=== PATIENT | male | born 1970 | race Caucasian/White ===

== ENCOUNTER → 2018-04-04 15:29 | Outpatient (CLI) | payer OTHER, SELFPAY ==
[2018-04-04 18:00] LABS: Absolute Lymphocyte Count 1.63 X10^3/ul (0.83-4.51); Absolute Neutrophil Count 7.6 X10^3/uL (2.0-7.7); Basophil# 0.04 X10^3/uL; Basophil% 0.4 % (0-1); Eosinophil# 0.11 X10^3/uL; Eosinophils% 1.1 % (0-5); Hematocrit 51.2 % (40-54); Hemoglobin 16.7 g/dl (13.0-16.5); Lymphocyte # 1.63 X10^3/ul (4.0); Mean Corp Hgb Conc 32.6 g/gl (32-36); Mean Corpuscular Hgb 28.9 pg (27.0-32.0); Mean Corpuscular Volume 88.6 fL (80-94); Mean Platelet Vol. 10.4 fl (6.2-12.0); Monocyte# 0.79 X10^3/uL; Monocyte% 7.8 % (0-10); Neutrophil # 7.56 X10^3/uL (2.7-7.7); Neutrophil % 74.4 % (47-70); Platelet Count 287 K/mm3 (150-450); RBC Distribution Width CV 12.8 % (11.6-14.6); RBC Distribution Width SD 41.2 fl (35.1-43.9); Red Blood Count 5.78 M/mm3 (4.6-6.2); White Blood Count 10.2 K/mm3 (4.4-11.0)
[2018-04-04 18:01] LABS: Vitamin B12 523 pg/mL (211-911); Vitamin D,25 Hydroxy 13.5 ng/mL (29.95-100.01)
[2018-04-04 18:02] LABS: AST(SGOT) 20 U/L (15-37); Alanine Aminotransfer ALT/SGPT 34 U/L (16-61); Albumin, Serum 4.1 g/dL (3.2-5.0); Alkaline Phosphatase 94 U/L (45-117); Anion Gap 7 (5-15); BUN 20 mg/dL (7-18); BUN/Creat Ratio 17.9 RATIO (10-20); Calcium,Total 9.1 mg/dL (8.5-10.1); Chloride 103 mmol/L (98-107); Cholesterol 175 mg/dL (200); Creatinine, Serum 1.12 mg/dL (0.70-1.30); EST Glomerular Filtration Rate 75 mL/min (>60); Est Glom Filt Rate - Afr Amer 91 mL/min (>60); Globulin 4.2 g/dL (2.2-4.2); Glucose 92 mg/dL (74-106); High Density Lipoprotein 42 mg/dL; Potassium 3.9 mmol/L (3.5-5.1); Protein, Total 8.3 g/dL (6.4-8.2); Sodium Level 138 mmol/L (136-145); T4 Free Direct 1.08 ng/dL (0.76-1.46); Triglycerides 128 mg/dL; Very Low Density Lipoprotein 26 mg/dL (5-40)
[2018-04-04 18:12] LABS: POSITIVE COUNT NO; POSITIVE DIFFERENTIAL NO; POSITIVE MORPHOLOGY NO
[2018-04-16 11:58] LABS: Anti-Thyroglobulin AB 12.2 IU/mL (0.0-0.9); Thyroglobulin RIA 3.7 ng/mL (.); Thyroid Peroxidase AB 175 IU/mL (0-34)
== END ==
PROVIDERS: Family Provider Family Medicine; PCP Family Medicine; Visit Provider Family Medicine
DX: I10 Essential (primary) hypertension (principal); E78.5 Hyperlipidemia, unspecified; E03.9 Hypothyroidism, unspecified; R53.83 Other fatigue
CPT/HCPCS: 80053; 80061; 82306; 82607; 84432; 84439; 84443; 85025; 86376; 86800

== ENCOUNTER → 2018-07-24 16:58 | Outpatient (CLI) | payer OTHER, SELFPAY ==
[2016-12-01 14:19] VITALS: BMI 49.0
[2018-07-24 17:46] LABS: Absolute Lymphocyte Count 2.01 X10^3/ul (0.83-4.51); Absolute Neutrophil Count 5.8 X10^3/uL (2.0-7.7); Basophil# 0.02 X10^3/uL; Basophil% 0.2 % (0-1); Eosinophil# 0.11 X10^3/uL; Eosinophils% 1.3 % (0-5); Hematocrit 46.4 % (40-54); Hemoglobin 15.1 g/dl (13.0-16.5); Lymphocyte # 2.01 X10^3/ul (4.0); Lymphocyte % 22.9 % (19-41); Mean Corp Hgb Conc 32.5 g/gl (32-36); Mean Corpuscular Volume 89.1 fL (80-94); Monocyte# 0.77 X10^3/uL; Monocyte% 8.8 % (0-10); Neutrophil # 5.84 X10^3/uL (2.7-7.7); Neutrophil % 66.6 % (47-70); Platelet Count 284 K/mm3 (150-450); RBC Distribution Width SD 41.9 fl (35.1-43.9); Red Blood Count 5.21 M/mm3 (4.6-6.2); White Blood Count 8.8 K/mm3 (4.4-11.0)
[2018-07-24 18:01] LABS: POSITIVE COUNT NO; POSITIVE DIFFERENTIAL NO; POSITIVE MORPHOLOGY NO
[2018-07-24 18:25] LABS: Vitamin D,25 Hydroxy 45.5 ng/mL (29.95-100.01)
[2018-07-24 18:27] LABS: AST(SGOT) 19 U/L (15-37); Alanine Aminotransfer ALT/SGPT 33 U/L (16-61); Albumin, Serum 4.1 g/dL (3.2-5.0); Alkaline Phosphatase 84 U/L (45-117); Anion Gap 8 (5-15); BUN 23 mg/dL (7-18); BUN/Creat Ratio 19.2 RATIO (10-20); Calcium,Total 9.6 mg/dL (8.5-10.1); Chloride 104 mmol/L (98-107); Cholesterol 165 mg/dL (200); EST Glomerular Filtration Rate 69 mL/min (>60); Est Glom Filt Rate - Afr Amer 84 mL/min (>60); Glucose 102 mg/dL (74-106); High Density Lipoprotein 48 mg/dL; Protein, Total 8.1 g/dL (6.4-8.2); Sodium Level 140 mmol/L (136-145); Thyroid Stim Hormone (TSH) 4.75 uIU/mL (0.358-3.74); Triglycerides 90 mg/dL; Very Low Density Lipoprotein 18 mg/dL (5-40)
== END ==
PROVIDERS: Family Provider Family Medicine; PCP Family Medicine; Referring Provider Family Medicine; Visit Provider Family Medicine
DX: I10 Essential (primary) hypertension (principal); E78.5 Hyperlipidemia, unspecified; E03.9 Hypothyroidism, unspecified; R53.83 Other fatigue
CPT/HCPCS: 36415; 80053; 80061; 82306; 84443; 85025

== ENCOUNTER → 2018-09-24 15:56 | Outpatient (CLI) | payer OTHER, SELFPAY ==
[2018-09-24 18:06] LABS: Thyroid Stim Hormone (TSH) 6.38 uIU/mL (0.358-3.74)
== END ==
PROVIDERS: Family Provider Family Medicine; PCP Family Medicine; Visit Provider Family Medicine
DX: E03.9 Hypothyroidism, unspecified (principal)
CPT/HCPCS: 36415; 84443

== ENCOUNTER → 2018-10-23 16:01 | Outpatient (CLI) | payer OTHER, SELFPAY ==
[2016-12-01 14:19] VITALS: BMI 49.0
--- NOTE | 2018-10-23 16:11 | RAD_ITS ---
HISTORY: PAIN EXAM: Right Knee COMPARISON: None FINDINGS: # of images incl. paperwork: 4 The joint spaces are well-maintained. No fracture or subluxation. The patellofemoral joint is minimally narrowed with small osteophyte, and lateral tilting to the patella.. A tiny right knee effusion is seen. RAD/Knee 4 or More Views IMPRESSION: Mild patellofemoral osteoarthritis with small effusion to the right knee. at 0538 Reported and signed by: Obed Real MD Electronically Signed: Obed Real MD at 5:37 EDT Tel , Service support ,
--- NOTE | 2018-10-23 16:11 | RAD_ITS ---
HISTORY: PAIN EXAM: Left Knee COMPARISON: None FINDINGS: # of images incl. paperwork: 4 The joint spaces are well-maintained. No fracture or subluxation. The patellofemoral joint has a normal appearance. Tiny left knee effusion is seen. RAD/Knee 4 or More Views IMPRESSION: Tiny effusion to the left knee. at [id number] Reported and signed by: Obed Real MD Electronically Signed: Obed Real MD at 5:38 EDT Tel , Service support ,
== END ==
PROVIDERS: Family Provider Family Medicine; PCP Family Medicine; Referring Provider Family Medicine; Visit Provider Family Medicine
DX: M25.561 Pain in right knee (principal); M25.562 Pain in left knee
CPT/HCPCS: 73564

== ENCOUNTER → 2018-12-23 15:55 | Outpatient (CLI) | payer OTHER, SELFPAY ==
[2016-12-01 14:19] VITALS: BMI 49.0
== END ==
PROVIDERS: Family Provider Family Medicine; PCP Family Medicine; Visit Provider Family Medicine
DX: E03.9 Hypothyroidism, unspecified (principal)
CPT/HCPCS: 36415; 84443

== ENCOUNTER → 2019-03-20 16:00 | Outpatient (CLI) | payer OTHER, SELFPAY ==
[2016-12-01 14:19] VITALS: BMI 49.0
[2019-03-20 17:31] LABS: Thyroid Stim Hormone (TSH) 3.63 uIU/mL (0.358-3.74)
== END ==
PROVIDERS: Family Provider Family Medicine; PCP Family Medicine; Visit Provider Family Medicine
DX: E03.9 Hypothyroidism, unspecified (principal)
CPT/HCPCS: 36415; 84443

== ENCOUNTER → 2019-04-23 11:09 | Outpatient (CLI) | payer OTHER, SELFPAY ==
[2016-12-01 14:19] VITALS: BMI 49.0
--- NOTE | 2019-04-23 11:22 | EKG12_ITS ---
Test Reason : PRE OP Blood Pressure : / mmHG Vent. Rate : 069 BPM Atrial Rate : 069 BPM P-R Int : 150 ms QRS Dur : 086 ms QT Int : 380 ms P-R-T Axes : 048 018 054 degrees QTc Int : 407 ms Normal sinus rhythm Normal ECG Confirmed by CLARK RAMOS, MANOJ ([id number]), business editor DANGELO ALONZO ([id number]) on 04/29/2019 11:37:09 AM Referred By: Phil Rock Confirmed By:SULMA RODAS MD
[2019-04-23 12:35] LABS: Hematocrit 50.1 % (40-54); Hemoglobin 16.3 g/dL (13.0-16.5); Mean Corp Hgb Conc 32.5 g/dL (32-36); Mean Corpuscular Hgb 28.8 pg (27.0-32.0); Mean Corpuscular Volume 88.7 fL (80-94); Platelet Count 302 K/mm3 (150-450); RBC Distribution Width CV 12.4 % (11.6-14.6); RBC Distribution Width SD 40.5 fl (35.1-43.9); Red Blood Count 5.65 M/mm3 (4.6-6.2)
[2019-04-23 13:23] LABS: Anion Gap 6 (5-15); BUN 23 mg/dL (7-18); BUN/Creat Ratio 18.9 RATIO (10-20); Calcium,Total 9.2 mg/dL (8.5-10.1); Chloride 105 mmol/L (98-107); Creatinine, Serum 1.22 mg/dL (0.70-1.30); EST Glomerular Filtration Rate 68 mL/min (>60); Est Glom Filt Rate - Afr Amer 82 mL/min (>60); Glucose 144 mg/dL (74-106); Potassium 4.1 mmol/L (3.5-5.1); Sodium Level 138 mmol/L (136-145)
== END ==
PROVIDERS: Family Provider Family Medicine; PCP Family Medicine; Referring Provider Physician Assistant; Visit Provider Physician Assistant
DX: Z01.818 Encounter for other preprocedural examination (principal); Z01.810 Encounter for preprocedural cardiovascular examination
CPT/HCPCS: 36415; 80048; 85027; 93005

== ENCOUNTER 2019-05-04 07:05 | Day surgery (SDC) | payer OTHER, SELFPAY ==
[2019-05-04 07:28] VITALS: PULSE 81; RESP 16; TEMP 36.3; O2SAT 98; BMI 52.4
[2019-05-04] MEDS: Lactated Ringers 1,000 ML 100 ML IV (07:42)
[2019-05-04] MEDS: Epinephrine (1 mg/ml) 1 MG/ML VIAL (09:56)
[2019-05-04] MEDS: Bupiv/Epi 0.25% 30 ML Vial (09:58)
[2019-05-04 10:18] VITALS: BP 112/53; BP 150/80; PULSE 100; RESP 18; TEMP 36.4; O2SAT 92
[2019-05-04 10:30] VITALS: BP 127/82; BP 150/80; PULSE 77; RESP 16; O2SAT 93
[2019-05-04 10:45] VITALS: BP 110/76; BP 150/80; PULSE 70; RESP 16; O2SAT 98
[2019-05-04 10:53] VITALS: BP 120/72; BP 150/80; PULSE 69; RESP 16; TEMP 36.6; O2SAT 93
[2019-05-04] MEDS: HYDROcodone Bitartrate/Apap 5/325 Tablet PO (11:17)
[2019-05-04 12:01] VITALS: BP 133/68; BP 150/80; PULSE 71; RESP 16; TEMP 36.8; O2SAT 93
--- NOTE | 2019-05-04 12:57 | PCM.OPRPT ---
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
== END 2019-05-04 12:07 | disposition home or self-care (01) ==
LOC: SDC 07:08 → AC 07:08
PROVIDERS: Family Provider Family Medicine; PCP Family Medicine; Referring Provider Orthopaedic Surgery; Visit Provider Orthopaedic Surgery
PROC: (CPT 29870; principal; 2019-05-04 08:25)
DX: S83.241A Other tear of medial meniscus, current injury, right knee, initial encounter (principal); X58.XXXA Exposure to other specified factors, initial encounter; Y93.9 Activity, unspecified; Y92.9 Unspecified place or not applicable; Y99.0 Civilian activity done for income or pay; M22.41 Chondromalacia patellae, right knee; E78.00 Pure hypercholesterolemia, unspecified; E06.9 Thyroiditis, unspecified; I10 Essential (primary) hypertension; M19.90 Unspecified osteoarthritis, unspecified site; Z79.899 Other long term (current) drug therapy
CPT/HCPCS: 29881; J7120; J2405

== ENCOUNTER → 2019-09-19 08:45 | Outpatient (CLI) | payer OTHER, SELFPAY ==
[2019-09-19 09:00] LABS: Absolute Lymphocyte Count 2.09 X10^3/uL (0.83-4.51); Absolute Neutrophil Count 5.4 X10^3/uL (2.0-7.7); Basophil# 0.05 X10^3/uL; Basophil% 0.6 % (0-1); Eosinophil# 0.24 X10^3/uL; Eosinophils% 2.8 % (0-5); Hematocrit 47.6 % (40-54); Hemoglobin 15.3 g/dL (13.0-16.5); Lymphocyte # 2.09 X10^3/ul (4.0); Lymphocyte % 24.3 % (19-41); Mean Corp Hgb Conc 32.1 g/dL (32-36); Mean Corpuscular Hgb 28.4 pg (27.0-32.0); Mean Corpuscular Volume 88.3 fL (80-94); Mean Platelet Vol. 9.5 fl (6.2-12.0); Monocyte# 0.78 X10^3/uL; Monocyte% 9.1 % (0-10); NRBC Flagged by Analyzer 0 % (0-5); Neutrophil # 5.39 X10^3/uL (2.7-7.7); Neutrophil % 62.7 % (47-70); Platelet Count 287 K/mm3 (150-450); RBC Distribution Width CV 12.3 % (11.6-14.6); RBC Distribution Width SD 40.2 fl (35.1-43.9); Red Blood Count 5.39 M/mm3 (4.6-6.2); White Blood Count 8.6 K/mm3 (4.4-11.0)
[2019-09-19 09:30] LABS: Hemoglobin A1c 7.4 % (4.2-6.3)
[2019-09-19 09:31] LABS: AST(SGOT) 29 U/L (15-37); Alanine Aminotransfer ALT/SGPT 36 U/L (16-61); Albumin, Serum 3.7 g/dL (3.2-5.0); Alkaline Phosphatase 77 U/L (45-117); Anion Gap 6 (5-15); BUN 13 mg/dL (7-18); Chloride 107 mmol/L (98-107); Cholesterol 171 mg/dL (200); Creatinine, Serum 1.08 mg/dL (0.70-1.30); EST Glomerular Filtration Rate 78 mL/min (>60); Est Glom Filt Rate - Afr Amer 94 mL/min (>60); Globulin 3.6 g/dL (2.2-4.2); Glucose 149 mg/dL (74-106); High Density Lipoprotein 39 mg/dL; Protein, Total 7.3 g/dL (6.4-8.2); Sodium Level 141 mmol/L (136-145); Thyroid Stim Hormone (TSH) 3.63 uIU/mL (0.358-3.74); Triglycerides 144 mg/dL; Very Low Density Lipoprotein 29 mg/dL (5-40)
--- OUTSIDE RECORDS SUMMARY | 2020-02-23 07:58 | XMS RPT_ITS | CCD ---
:1970 External Reference #:[id number] Author Organization [facility] Care Team Providers Name Role Phone Neveah Medel MD Unavailable GEMS Unavailable Unavailable NO REFERRING DR Unavailable Unavailable ZOUMBERAKIS Unavailable Unavailable Kolarik Unavailable Unavailable PROVIDER Unavailable Unavailable No Unavailable Unavailable Medications Medication Name Sig Date Prescriber Location No information No information [facility] (123 42) Problems Active Problems Category Problem Name Status Date Location Disorders of lipid Hyperlipidemia, Active 12-05-2016 - [facility] metabolism unspecified (75112) Diverticulosis and Diverticulitis of large Active 12-05-2016 [facility] diverticulitis intestine without (34955) perforation or abscess without bleeding Esophageal disorders Gastro-esophageal Active 12-05-2016 - [facility] reflux disease without (0000 0) esophagitis Essential hypertension Essential (primary) Active 12-04-2016 - [place] [facility] (97383) Other nutritional; Morbid (severe) obesity Active 12-05-2016 - [facility] endocrine; and due to excess calories (00 000) metabolic disorders Thyroid disorders Hypothyroidism, Active 12-04-2016 - [place] [facility] unspecified [facility] (61916) Unclassified Body mass index (BMI) Active 12-05-2016 - [facility] 50-59.9 , adult (80950) Unclassified Pure Active 12-04-2016 - [place] [facility] hypercholesterolemia, Health System unspecified (26151) Unclassified No current problems or Active [facility] S urgical disability Associates (440 86) Past or Other Problems Category Problem Name Status Date Location Abdominal pain Generalized abdominal Completed 12-04-2016 - [place] [facility] (05716) Fluid and electrolyte Hypokalemia Completed 12-05-2016 - [facility] disorders System (71562) Intestinal obstruction Other intestinal Completed 12-04-2016 - [facility] without hernia obstruction [facility] (64081) Other aftercare Other senior care Completed 12-04-2016 - [place] [facility] (current) drug therapy [facility] (98634) Results Result Name Value Range Unit Interpretation Flag Date Location history & physical on 2016-12-12 HISTORY & PHYSICAL The required clinical Normal 12-12-2016 [facility] documentation could not Health System be extracted for this (83196) report. Please refer to the [facility] Record or contact the [facility] Department at [facility] ([phone]) to obtain a copy of this report. HISTORY & PHYSICAL Normal 12-12-2016 [facility] tem (35610) phosphorus on 12-11 Phosphate 4.1 2.5-4.9 mg/dL Normal 12-11-2016 [facility] (12382) Comment: Performed By: #### HEMDF, CM P3, LACT3 ####[address] [address] hemogram w/ autodiff on 2016-12-11 Abs Baso Cnt 0.0 0.0-0.2 10*3/uL Normal 12-11-2016 [facility] (43247) Comment: Performed By: #### HEMDF, CM P3, LACT3 ####[address] [address] Basophils/100 WBC Auto (Bld) 0.2 % Normal 0 12-11-2016 [facility] (41397) Comment: Performed By: #### HEMDF, CM P3, LACT3 ####[address] [address] Eosinophils 0.1 0.0-0.5 10*3/uL Normal 12-11-2016 [facility] (12706) Comment: Performed By: #### HEMDF, CM P3, LACT3 ####[address] [address] Eosinophils/100 leukocytes 1.1 % Normal [facility] (76025) Comment: Performed By: #### HEMDF, CM P3, LACT3 ####[address] [address] Erythrocyte distribution 13.5 11.5-14.5 % Normal 12-11 [facility] width Auto Ratio (RBC) (50034) Comment: Performed By: #### HEMDF, CM P3, LACT3 ####[address] [place] [address] Erythrocytes (RBC) 4.95 4.40-5.90 10*6/uL Normal 12-11-2016 [facility] (41630) Comment: Performed By: #### HEMDF, CM P3, LACT3 ####[address] [place] [address] Granulocytes/100 WBC (Bld) 73.0 % Normal [facility] (04931) Comment: Performed By: #### HEMDF, CM P3, LACT3 ####[address] [place] [address] Hematocrit (HCT) 42.3 40.0-52.0 % Normal 12-11-2016 [facility] (13652) Comment: Performed By: #### HEMDF, CM P3, LACT3 ####[address] [place] [address] Hemoglobin mass conc 14.1 13.0-18.0 g/dL Normal 7 [facility] (Bld) (20665) Comment: Performed By: #### HEMDF, CM P3, LACT3 ####[address] [place] [address] Lymphocytes 1.5 1.0-4.3 10*3/uL Normal 12-11-2016 [facility] (01210) Comment: Performed By: #### HEMDF, CM P3, LACT3 ####[address] [place] [address] Lymphocytes/100 leukocytes 15.3 % Normal [facility] (46831) Comment: Performed By: #### HEMDF, CM P3, LACT3 ####[address] [place] [address] MCH 28.5 26.0-34.0 pg Normal 12-11-2016 [facility] (34454) Comment: Performed By: #### HEMDF, CM P3, LACT3 ####[address] [address] MCHC mass conc (RBC) 33.3 32.0-36.0 % Normal 201 7 [facility] (20854) Comment: Performed By: #### HEMDF, CM P3, LACT3 ####[address] [place] [address] MCV 85.5 80.0-98.0 fL Normal 12-11-2016 [facility] (18502) Comment: Performed By: #### HEMDF, CM P3, LACT3 ####[place] [address] Monocytes 1.0 0.0-0.8 10*3/uL High 12-11-2016 [facility] (21523) Comment: Performed By: #### HEMDF, CM P3, LACT3 ####[place] [address] Monocytes/100 leukocytes 10.4 % Normal 12-11 [facility] (23731) Comment: Performed By: #### HEMDF, CM P3, LACT3 ####[place] [address] Neutrophils 7.0 1.8-7.0 10*3/uL Normal 12-11-2016 [facility] (11792) Comment: Performed By: #### HEMDF, CM P3, LACT3 ####[address] [place] [address] Platelet mean volume (PMV) 7.1 7.4-10.4 fL Low [facility] (15870) Comment: Performed By: #### HEMDF, CM P3, LACT3 ####[place] [address] Platelets 300 140-440 10*3/uL Normal 12-11-2016 [facility] (25997) Comment: Performed By: #### HEMDF, CM P3, LACT3 ####[address] [place] [address] WBC (Leukocytes) 9.6 3.6-10.7 10*3/uL Normal 12-11-2016 [facility] (96473) Comment: Performed By: #### HEMDF, CM P3, LACT3 ####[address] [place] [address] basic metabolic panel on 2016-12-11 Anion gap 11 mmol/L Normal 12-11-2016 [facility] (00813) Comment: Performed By: #### HEMDF, CM P3, LACT3 ####[address] [place] [address] Creatinine 0.93 0.55-1.40 mg/dL Normal 12-11-2016 [facility] (59004) Comment: Performed By: #### HEMDF, CM P3, LACT3 ####[address] [place] [address] eGFR (black) >60.0 >60 mL/min/{1.73_m2} Normal 12-11-2016 [facility] (41048) Comment: Performed By: #### HEMDF, CM P3, LACT3 ####[address] [place] [address] eGFR (non-black) >60.0 >60 mL/min/{1.73_m2} Normal 2016 [facility] (15316) Comment: Result Comment: Source- MDRD equation with creatinine calibration to IDMS(NKDEP)eGFR not recommen ded for drug dose adjustment Performed By: #### HEMDF, CM P3, LACT3 ####[address] [place] [address] Glucose mass conc 110 70-100 mg/dL High 12-11-2016 [facility] (58553) Comment: Performed By: #### HEMDF, CM P3, LACT3 ####[address] [place] [address] Urea nitrogen 5 7-25 mg/dL Low 12-11-2016 [facility] (73160) Comment: Performed By: #### HEMDF, CM P3, LACT3 ####[address] [place] [address] Calcium 8.9 8.2-10.1 mg/dL Normal 12-11-2016 [facility] (42105) Comment: Performed By: #### HEMDF, CM P3, LACT3 ####[address] [place] [address] Chloride 102 98-109 mmol/L Normal 12-11-2016 [facility] (47563) Comment: Performed By: #### HEMDF, CM P3, LACT3 ####[address] [place] [address] CO2 26 21-32 mmol/L Normal 12-11-2016 [facility] (22900) Comment: Performed By: #### HEMDF, CM P3, LACT3 ####[address] [place] [address] Potassium molar conc 3.8 3.5-5.1 mmol/L Normal 7 [facility] (50229) Comment: Performed By: #### HEMDF, CM P3, LACT3 ####[address] [place] [address] Sodium 139 135-145 mmol/L Normal 12-11-2016 [facility] (88252) Comment: Performed By: #### HEMDF, CM P3, LACT3 ####[address] [place] [address] phosphorus on 12-10 Phosphate 3.6 2.5-4.9 mg/dL Normal 12-10-2016 [facility] (48222) Comment: Performed By: #### HEMDF, CM P3, LACT3 ####[address] [place] [address] hemogram w/ autodiff on 2016-12-10 Abs Baso Cnt 0.0 0.0-0.2 10*3/uL Normal 12-10-2016 [facility] (43425) Comment: Performed By: #### HEMDF, CM P3, LACT3 ####[address] [place] [address] Basophils/100 WBC Auto (Bld) 0.2 % Normal 0 12-10-2016 [facility] (34512) Comment: Performed By: #### HEMDF, CM P3, LACT3 ####[address] [place] [address] Eosinophils 0.1 0.0-0.5 10*3/uL Normal 12-10-2016 [facility] (17362) Comment: Performed By: #### HEMDF, CM P3, LACT3 ####[address] [place] [address] Eosinophils/100 leukocytes 0.7 % Normal [facility] (96069) Comment: Performed By: #### HEMDF, CM P3, LACT3 ####[address] [place] [address] Erythrocyte distribution 13.7 11.5-14.5 % Normal 12-10 [facility] width Auto Ratio (RBC) (42010) Comment: Performed By: #### HEMDF, CM P3, LACT3 ####[address] [place] [address] Erythrocytes (RBC) 4.57 4.40-5.90 10*6/uL Normal 12-10-2016 [facility] (22671) Comment: Performed By: #### HEMDF, CM P3, LACT3 ####[address] [place] [address] Granulocytes/100 WBC (Bld) 69.7 % Normal [facility] (48331) Comment: Performed By: #### HEMDF, CM P3, LACT3 ####[address] [place] [address] Hematocrit (HCT) 38.4 40.0-52.0 % Low 12-10-2016 [facility] (53743) Comment: Performed By: #### HEMDF, CM P3, LACT3 ####[address] [place] [address] Hemoglobin mass conc (Bld) 12.9 13.0-18.0 g/dL Low [facility] (76389) Comment: Performed By: #### HEMDF, CM P3, LACT3 ####[address] [place] [address] Lymphocytes 1.5 1.0-4.3 10*3/uL Normal 12-10-2016 [facility] (42558) Comment: Performed By: #### HEMDF, CM P3, LACT3 ####[address] [place] [address] Lymphocytes/100 leukocytes 15.5 % Normal [facility] (12121) Comment: Performed By: #### HEMDF, CM P3, LACT3 ####[address] [place] [address] MCH 28.2 26.0-34.0 pg Normal 12-10-2016 [facility] (41368) Comment: Performed By: #### HEMDF, CM P3, LACT3 ####[address] [place] [address] MCHC mass conc (RBC) 33.6 32.0-36.0 % Normal 7 [facility] (48202) Comment: Performed By: #### HEMDF, CM P3, LACT3 ####[address] [address] MCV 84.1 80.0-98.0 fL Normal 12-10-2016 [facility] (67706) Comment: Performed By: #### HEMDF, CM P3, LACT3 ####[address] [place] [address] Monocytes 1.3 0.0-0.8 10*3/uL High 12-10-2016 [facility] (07879) Comment: Performed By: #### HEMDF, CM P3, LACT3 ####[address] [place] [address] Monocytes/100 leukocytes 13.9 % Normal 12-10 [facility] (12636) Comment: Performed By: #### HEMDF, CM P3, LACT3 ####[address] [place] [address] Neutrophils 6.6 1.8-7.0 10*3/uL Normal 12-10-2016 [facility] (22726) Comment: Performed By: #### HEMDF, CM P3, LACT3 ####[address] [place] [address] Platelet mean volume (PMV) 7.4 7.4-10.4 fL Normal [facility] (43929) Comment: Performed By: #### HEMDF, CM P3, LACT3 ####[address] [place] [address] Platelets 274 140-440 10*3/uL Normal 12-10-2016 [facility] (69198) Comment: Performed By: #### HEMDF, CM P3, LACT3 ####[address] [place] [address] WBC (Leukocytes) 9.5 3.6-10.7 10*3/uL Normal 12-10-2016 [facility] (38368) Comment: Performed By: #### HEMDF, CM P3, LACT3 ####[address] [place] [address] basic metabolic panel on 2016-12-10 Creatinine 0.95 0.55-1.40 mg/dL Normal 12-10-2016 [facility] (83859) Comment: Performed By: #### HEMDF, CM P3, LACT3 ####[address] [place] [address] eGFR (black) >60.0 >60 mL/min/{1.73_m2} Normal 12-10-2016 [facility] (83414) Comment: Performed By: #### HEMDF, CM P3, LACT3 ####[address] [place] [address] eGFR (non-black) >60.0 >60 mL/min/{1.73_m2} Normal 2016 [facility] (90060) Comment: Result Comment: Source- MDRD equation with creatinine calibration to IDMS(NKDEP)eGFR not recommen ded for drug dose adjustment Performed By: #### HEMDF, CM P3, LACT3 ####[address] [place] [address] Anion gap 9 mmol/L Normal 12-10-2016 [facility] (10327) Comment: Performed By: #### HEMDF, CM P3, LACT3 ####[address] [place] [address] Urea nitrogen 4 7-25 mg/dL Low 12-10-2016 [facility] (28014) Comment: Performed By: #### HEMDF, CM P3, LACT3 ####[address] [place] [address] Calcium 8.0 8.2-10.1 mg/dL Low 12-10-2016 [facility] (80809) Comment: Performed By: #### HEMDF, CM P3, LACT3 ####[address] [place] [address] Glucose mass conc 94 70-100 mg/dL Normal 12-10-2016 [facility] (84351) Comment: Performed By: #### HEMDF, CM P3, LACT3 ####[address] [place] [address] CO2 25 21-32 mmol/L Normal 12-10-2016 [facility] (23880) Comment: Performed By: #### HEMDF, CM P3, LACT3 ####[address] [place] [address] Chloride 106 98-109 mmol/L Normal 12-10-2016 [facility] (50290) Comment: Performed By: #### HEMDF, CM P3, LACT3 ####[address] [place] [address] Potassium molar conc 3.6 3.5-5.1 mmol/L Normal 7 [facility] (40371) Comment: Performed By: #### HEMDF, CM P3, LACT3 ####[address] [place] [address] Sodium 140 135-145 mmol/L Normal 12-10-2016 [facility] (50451) Comment: Performed By: #### HEMDF, CM P3, LACT3 ####[address] [place] [address] phosphorus on 12-09 Phosphate 2.6 2.5-4.9 mg/dL Normal 12-09-2016 [facility] (24092) Comment: Performed By: #### HEMDF, CM P3, LACT3 ####[address] [place] [address] lab report: giardia lamblia, stool eia on 2016-12-09 GE use only - for NEGATIVE Invalid 12-09-2016 - [facility] Surgical [employer] import [employer] when terms are (4469 1) not otherwise specified hemogram w/ autodiff on 2016-12-09 Abs Baso Cnt 0.0 0.0-0.2 10*3/uL Normal 12-09-2016 [facility] (53776) Comment: Performed By: #### HEMDF, CM P3, LACT3 ####[address] [place] [address] Basophils/100 WBC Auto (Bld) 0.4 % Normal 0 12-09-2016 [facility] (43989) Comment: Performed By: #### HEMDF, CM P3, LACT3 ####[address] [place] [address] Eosinophils 0.0 0.0-0.5 10*3/uL Normal 12-09-2016 [facility] (54740) Comment: Performed By: #### HEMDF, CM P3, LACT3 ####[address] [place] [address] Eosinophils/100 leukocytes 0.4 % Normal [facility] (69470) Comment: Performed By: #### HEMDF, CM P3, LACT3 ####[address] [place] [address] Erythrocyte distribution 13.5 11.5-14.5 % Normal 12-09 [facility] width Auto Ratio (RBC) (23864) Comment: Performed By: #### HEMDF, CM P3, LACT3 ####[address] [place] [address] Erythrocytes (RBC) 4.64 4.40-5.90 10*6/uL Normal 12-09-2016 [facility] (22481) Comment: Performed By: #### HEMDF, CM P3, LACT3 ####[address] [place] [address] Granulocytes/100 WBC (Bld) 74.6 % Normal [facility] (96659) Comment: Performed By: #### HEMDF, CM P3, LACT3 ####[address] [place] [address] Hematocrit (HCT) 39.4 40.0-52.0 % Low 12-09-2016 [facility] (55879) Comment: Performed By: #### HEMDF, CM P3, LACT3 ####[address] [place] [address] Hemoglobin mass conc 13.1 13.0-18.0 g/dL Normal 7 [facility] (Bld) (45645) Comment: Performed By: #### HEMDF, CM P3, LACT3 ####[address] [place] [address] Lymphocytes 1.2 1.0-4.3 10*3/uL Normal 12-09-2016 [facility] (75349) Comment: Performed By: #### HEMDF, CM P3, LACT3 ####[address] [place] [address] Lymphocytes/100 leukocytes 12.1 % Normal [facility] (99303) Comment: Performed By: #### HEMDF, CM P3, LACT3 ####[address] [place] [address] MCH 28.3 26.0-34.0 pg Normal 12-09-2016 [facility] (05173) Comment: Performed By: #### HEMDF, CM P3, LACT3 ####[address] [place] [address] MCHC mass conc (RBC) 33.4 32.0-36.0 % Normal 7 [facility] (31547) Comment: Performed By: #### HEMDF, CM P3, LACT3 ####[address] [place] [address] MCV 84.9 80.0-98.0 fL Normal 12-09-2016 [facility] (36400) Comment: Performed By: #### HEMDF, CM P3, LACT3 ####[address] [place] [address] Monocytes 1.2 0.0-0.8 10*3/uL High 12-09-2016 [facility] (25195) Comment: Performed By: #### HEMDF, CM P3, LACT3 ####[address] [place] [address] Monocytes/100 leukocytes 12.5 % Normal 12-09 [facility] (51145) Comment: Performed By: #### HEMDF, CM P3, LACT3 ####[address] [place] [address] Neutrophils 7.3 1.8-7.0 10*3/uL High 12-09-2016 [facility] (55609) Comment: Performed By: #### HEMDF, CM P3, LACT3 ####[address] [place] [address] Platelet mean volume (PMV) 7.4 7.4-10.4 fL Normal [facility] (49403) Comment: Performed By: #### HEMDF, CM P3, LACT3 ####[address] [place] [address] Platelets 292 140-440 10*3/uL Normal 12-09-2016 [facility] (20563) Comment: Performed By: #### HEMDF, CM P3, LACT3 ####[address] [place] [address] WBC (Leukocytes) 9.7 3.6-10.7 10*3/uL Normal 12-09-2016 [facility] (75757) Comment: Performed By: #### HEMDF, CM P3, LACT3 ####[address] [place] [address] basic metabolic panel on 2016-12-09 Anion gap 7 mmol/L Normal 12-09-2016 [facility] (47098) Comment: Performed By: #### HEMDF, CM P3, LACT3 ####[address] [place] [address] Creatinine 1.03 0.55-1.40 mg/dL Normal 12-09-2016 [facility] (71309) Comment: Performed By: #### HEMDF, CM P3, LACT3 ####[address] [place] [address] eGFR (black) >60.0 >60 mL/min/{1.73_m2} Normal 12-09-2016 [facility] (53981) Comment: Performed By: #### HEMDF, CM P3, LACT3 ####[address] [place] [address] eGFR (non-black) >60.0 >60 mL/min/{1.73_m2} Normal 2016 [facility] (01839) Comment: Result Comment: Source- MDRD equation with creatinine calibration to IDMS(NKDEP)eGFR not recommen ded for drug dose adjustment Performed By: #### HEMDF, CM P3, LACT3 ####[address] [place] [address] CO2 27 21-32 mmol/L Normal 12-09-2016 [facility] (45687) Comment: Performed By: #### HEMDF, CM P3, LACT3 ####[address] [place] [address] Glucose mass conc 100 70-100 mg/dL Normal 12-09-2016 [facility] (99014) Comment: Performed By: #### HEMDF, CM P3, LACT3 ####[address] [place] [address] Urea nitrogen 4 7-25 mg/dL Low 12-09-2016 [facility] (60484) Comment: Performed By: #### HEMDF, CM P3, LACT3 ####[address] [place] [address] Calcium 8.5 8.2-10.1 mg/dL Normal 12-09-2016 [facility] (70148) Comment: Performed By: #### HEMDF, CM P3, LACT3 ####[address] [place] [address] Chloride 104 98-109 mmol/L Normal 12-09-2016 [facility] (01715) Comment: Performed By: #### HEMDF, CM P3, LACT3 ####[address] [place] [address] Potassium molar conc 3.7 3.5-5.1 mmol/L Normal 7 [facility] (17643) Comment: Performed By: #### HEMDF, CM P3, LACT3 ####[address] [place] [address] Sodium 138 135-145 mmol/L Normal 12-09-2016 [facility] (37307) Comment: Performed By: #### HEMDF, CM P3, LACT3 ####[address] [place] [address] phosphorus on 12-08 Phosphate 3.1 2.5-4.9 mg/dL Normal 12-08-2016 [facility] (25879) Comment: Performed By: #### HEMDF, CM P3, LACT3 ####[address] [place] [address] microbiology: ova and parasites 8623 on 2016-12-08 ova and parasites . Invalid Interpretation 12-08-2016 - [facility] Surgical identification, stool Code 12-09-19 [facility] (15077) hemogram w/ autodiff on 2016-12-08 Abs Baso Cnt 0.0 0.0-0.2 10*3/uL Normal 12-08-2016 [facility] (43351) Comment: Performed By: #### HEMDF, CM P3, LACT3 ####[address] [place] [address] Basophils/100 WBC Auto (Bld) 0.3 % Normal 0 12-08-2016 [facility] (77636) Comment: Performed By: #### HEMDF, CM P3, LACT3 ####[address] [place] [address] Eosinophils 0.1 0.0-0.5 10*3/uL Normal 12-08-2016 [facility] (62046) Comment: Performed By: #### HEMDF, CM P3, LACT3 ####[address] [place] [address] Eosinophils/100 leukocytes 0.6 % Normal [facility] (63627) Comment: Performed By: #### HEMDF, CM P3, LACT3 ####[address] [place] [address] Erythrocyte distribution 13.4 11.5-14.5 % Normal 12-08 [facility] width Auto Ratio (RBC) (98392) Comment: Performed By: #### HEMDF, CM P3, LACT3 ####[address] [place] [address] Erythrocytes (RBC) 4.54 4.40-5.90 10*6/uL Normal 12-08-2016 [facility] (45290) Comment: Performed By: #### HEMDF, CM P3, LACT3 ####[address] [place] [address] Granulocytes/100 WBC (Bld) 75.9 % Normal [facility] (12119) Comment: Performed By: #### HEMDF, CM P3, LACT3 ####[address] [place] [address] Hematocrit (HCT) 38.5 40.0-52.0 % Low 12-08-2016 [facility] (99656) Comment: Performed By: #### HEMDF, CM P3, LACT3 ####[address] [place] [address] Hemoglobin mass conc (Bld) 12.9 13.0-18.0 g/dL Low [facility] (81091) Comment: Performed By: #### HEMDF, CM P3, LACT3 ####[address] [place] [address] Lymphocytes 1.3 1.0-4.3 10*3/uL Normal 12-08-2016 [facility] (15755) Comment: Performed By: #### HEMDF, CM P3, LACT3 ####[place] [address] [place] [address] Lymphocytes/100 leukocytes 12.2 % Normal [facility] ([id number]) Comment: Performed By: #### HEMDF, CM P3, LACT3 ####[address] [place] [address] MCH 28.5 26.0-34.0 pg Normal 12-08-2016 [facility] (71795) Comment: Performed By: #### HEMDF, CM P3, LACT3 ####[place] [address] [place] [address] MCHC mass conc (RBC) 33.6 32.0-36.0 % Normal 7 [facility] (09119) Comment: Performed By: #### HEMDF, CM P3, LACT3 ####[address] [place] [address] MCV 84.8 80.0-98.0 fL Normal 12-08-2016 [facility] (69011) Comment: Performed By: #### HEMDF, CM P3, LACT3 ####[place] [address] [place] [address] Monocytes 1.2 0.0-0.8 10*3/uL High 12-08-2016 [facility] (11086) Comment: Performed By: #### HEMDF, CM P3, LACT3 ####[address] [address] [place] [address] Monocytes/100 leukocytes 11.0 % Normal 12-08 [facility] (80393) Comment: Performed By: #### HEMDF, CM P3, LACT3 ####[address] [place] [address] Neutrophils 8.4 1.8-7.0 10*3/uL High 12-08-2016 [facility] (40123) Comment: Performed By: #### HEMDF, CM P3, LACT3 ####[address] [place] [address] Platelet mean volume (PMV) 7.5 7.4-10.4 fL Normal [facility] (14955) Comment: Performed By: #### HEMDF, CM P3, LACT3 ####[address] [place] [id number] Platelets 300 140-440 10*3/uL Normal 12-08-2016 [facility] (79041) Comment: Performed By: #### HEMDF, CM P3, LACT3 ####[address] [place] [address] WBC (Leukocytes) 11.1 3.6-10.7 10*3/uL High 12-08-2016 [facility] (80203) Comment: Performed By: #### HEMDF, CM P3, LACT3 ####[address] [place] [address] basic metabolic panel on 2016-12-08 Creatinine 0.93 0.55-1.40 mg/dL Normal 12-08-2016 [facility] (22874) Comment: Performed By: #### HEMDF, CM P3, LACT3 ####[address] [place] [address] eGFR (black) >60.0 >60 mL/min/{1.73_m2} Normal 12-08-2016 [facility] (41217) Comment: Performed By: #### HEMDF, CM P3, LACT3 ####[place] [address] eGFR (non-black) >60.0 >60 mL/min/{1.73_m2} Normal 2016 [facility] (16594) Comment: Result Comment: Source- MDRD equation with creatinine calibration to IDMS(NKDEP)eGFR not recommen ded for drug dose adjustment Performed By: #### HEMDF, CM P3, LACT3 ####[address] [place] [address] Anion gap 11 mmol/L Normal 12-08-2016 [facility] (91526) Comment: Performed By: #### HEMDF, CM P3, LACT3 ####[place] [address] [place] [address] Glucose mass conc 77 70-100 mg/dL Normal 12-08-2016 [facility] (06267) Comment: Performed By: #### HEMDF, CM P3, LACT3 ####[address] [place] [address] Urea nitrogen 8 7-25 mg/dL Normal 12-08-2016 [facility] (55950) Comment: Performed By: #### HEMDF, CM P3, LACT3 ####[address] [place] [address] Calcium 8.0 8.2-10.1 mg/dL Low 12-08-2016 [facility] (12551) Comment: Performed By: #### HEMDF, CM P3, LACT3 ####[address] [place] [address] CO2 28 21-32 mmol/L Normal 12-08-2016 [facility] (99440) Comment: Performed By: #### HEMDF, CM P3, LACT3 ####[address] [place] [address] Chloride 104 98-109 mmol/L Normal 12-08-2016 [facility] (05472) Comment: Performed By: #### HEMDF, CM P3, LACT3 ####[address] [place] [address] Potassium molar conc 3.1 3.5-5.1 mmol/L Low 7 [facility] (72105) Comment: Performed By: #### HEMDF, CM P3, LACT3 ####[address] [place] [address] Sodium 143 135-145 mmol/L Normal 12-08-2016 [facility] (83668) Comment: Performed By: #### HEMDF, CM P3, LACT3 ####[place] [address] [place] [address] urinalysis,microscopic on 2016-12-07 Urine, epithelial cells in 0-2 3-5 Normal [facility] (35457) sediment Comment: Performed By: #### HEMDF, CM P3, LACT3 ####[address] [address] [place] [address] Urine, erythrocytes in sediment 0-2 0-2 Normal 12-07-2016 [facility] by area (31858) Comment: Performed By: #### HEMDF, CM P3, LACT3 ####[address] [place] [address] Urine, leukocytes in sedmiment 0-2 0-5 Normal 12-07-2016 [facility] (70700) Comment: Performed By: #### HEMDF, CM P3, LACT3 ####[address] [place] [address] urinalysis,macro on 2016-12-07 Bilirubin (direct) 3 Negative mg/dL Normal 12-07-2016 [facility] (58686) Comment: Performed By: #### HEMDF, CM P3, LACT3 ####[address] [place] [address] Ketone,Urine 2+ Negative mg/dL Normal 12-07-2016 [facility] (42957) Comment: Performed By: #### HEMDF, CM P3, LACT3 ####[address] [address] [place] [address] Occult Blood,Ur NEG Negative Normal 12-07-2016 [facility] (98940) Comment: Performed By: #### HEMDF, CM P3, LACT3 ####[place] [address] [place] [address] Specific [place],Urine 1.020 1.005-1.030 Normal 12-07 [facility] (62124) Comment: Performed By: #### HEMDF, CM P3, LACT3 ####[place] [address] [place] [address] Total Protein,Urine 25 Negative mg/dL Normal 12-07-2016 [facility] (69230) Comment: Performed By: #### HEMDF, CM P3, LACT3 ####[place] [address] [place] [address] Urine, appearance clear Clear Normal 12-07-2016 [facility] (25843) Comment: Performed By: #### HEMDF, CM P3, LACT3 ####[place] [address] [place] [address] Urine, color yellow Lt. Yellow Normal 12-07-2016 [facility] (91983) Comment: Performed By: #### HEMDF, CM P3, LACT3 ####[place] [address] [place] [address] Urine, glucose presence NORM Negative Normal 2016 [facility] (96821) Comment: Performed By: #### HEMDF, CM P3, LACT3 ####[place] [address] [place] [address] Urine, nitrite presence POS Negative Normal 2016 [facility] (49745) Comment: Performed By: #### HEMDF, CM P3, LACT3 ####[place] [address] [place] [address] Urine, pH 6.0 5.0-8.0 [pH] Normal 12-07-2016 [facility] (15188) Comment: Performed By: #### HEMDF, CM P3, LACT3 ####[place] [address] [place] [address] Urine, urobilinogen 12 0-1 mg/dL Normal 12-07-2016 [facility] (84395) Comment: Performed By: #### HEMDF, CM P3, LACT3 ####[place] [address] [place] [address] WBC (Leukocytes) NEG Negative 10*3/uL Normal 12-07-2016 [facility] (91134) Comment: Performed By: #### HEMDF, CM P3, LACT3 ####[facility] [place] [address] surgical pathology on 2016-12-07 Surgical [id number] [facility] PATHOLOGY Normal 12-07-[address] Pathology AND LABORATORY MEDICINE [address] [place] [address] FINAL SURGICAL [facility] REPORT NA ME: ([id number]) HARESH HUFF .O.B.: 1970 46 Y M BILLING NO.: [id number]: [id number] PROCEDURE 017 DATE:SURGEON: GUIDO FITCH M.D. RECEIVED 12/07/2016 DATE:ATTENDING: JOSE CRUZ CHRISTENSEN MD REPORT DATE: 12/13/2016 COPIES TO: DIAGN OSIS:COLON , SIGMOID, BIOPSY - FRAGMENT S OF COLONIC MUCOSA WITH FOCAL ACTIVECOLITIS, LYMPHOID AGGREGATES, AND HEMOSIDERIN- LADEN MACROPHAGES.COMMENT: Sections show focal active colitis, hemosiderin-ladenmacrophages, and intramucosal l ymphoid aggregates. The focal activecolitis pattern of inj ury may be seen in a variety of settings,including bowel preparation effect, acute se lf-limited colitis,infection, ischemia, drug effect, or inflammatory bowel disease.F eatures of chronic architectural distortion are not identified.Dysplasia is not identified. Background lamina propria shows expansionwith non-specific fibrosis. An ir on stain is positive in thehemosiderin-laden macrophages. These findings are non-speci fic and maybe related to a previous injury, infection, or other etiology.CR[facility] LEN GREGORY M.D. CLIN ICAL INFORMATION: Abdominal pain, abnormal barium sam ma, abnormalCTSPECIMEN: COLON BIOPSY GR OSS DESCRIPTION:Colon - sigmoid , sigmoid mucosa biopsiesReceived in formalin are three segments of ramachandran tissue measuring 0.1 to0.3 cm. Submitted i n toto. (3 ns, 1) JCK/[id number]: The foll owing statement applies to allimmunohistochemistry, in situ hybridization, molecular ankit dies, andimmunofluorescence testing.The use of one or more reagents in the above tests is regulated as ananalyte specific reagent (ASR). These tests were developed and theirperformance aaron acteristics determined by the clinical laboratories [facility]. They have not been cleared by the US Food and DrugAdministration (FDA). Th e FDA has determined that such clearance orapproval is not necessary.All the above immunostains were performed on paraf fin embedded tissue.Appropriate positive and negative controls (where applicable) were runin parallel with the patient's specimen; these controls showed expectedstaining pattern, with acceptable intensity of stai isabel.Immunohistochemical assays have not been validated on decalcifiedtissues. Results should be interpreted with caution given the raisedpossibility of false negativity on decal cified specimens.Professional Performing Location: [place] [address] [place] [address]. DEPARTMENT OF PATHOLOGY AND LABORATORY MEDICINE [place], [place] [address] Comment: Performed By: #### HEMDF, CM P3, LACT3 ####[place] [address] [place] [address] phosphorus on 12-07 Phosphate 3.5 2.5-4.9 mg/dL Normal 12-07-2016 [facility] (36855) Comment: Performed By: #### HEMDF, CM P3, LACT3 ####[address] [address] [place] [address] microbiology: culture, blood (wb) on 2016-12-07 Bacteria BCNo growth Invalid 12-07-2016 - [facility] urgical culture in 5 days. Interpretation Code [facility] (28018) basic metabolic panel on 2016-12-07 Anion gap 8 mmol/L Normal 12-07-2016 [facility] (98534) Comment: Performed By: #### HEMDF, CM P3, LACT3 ####[place] [address] [place] [address] Creatinine 0.88 0.55-1.40 mg/dL Normal 12-07-2016 [facility] (53329) Comment: Performed By: #### HEMDF, CM P3, LACT3 ####[place] [address] [place] [address] eGFR (black) >60.0 >60 mL/min/{1.73_m2} Normal 12-07-2016 [facility] (10336) Comment: Performed By: #### HEMDF, CM P3, LACT3 ####[place] [address] [place] [address] eGFR (non-black) >60.0 >60 mL/min/{1.73_m2} Normal 2016 [facility] (64585) Comment: Result Comment: Source- MDRD equation with creatinine calibration to IDMS(NKDEP)eGFR not recommen ded for drug dose adjustment Performed By: #### HEMDF, CM P3, LACT3 ####[place] [address] [place] [address] Glucose mass conc 115 70-100 mg/dL High 12-07-2016 [facility] (21741) Comment: Performed By: #### HEMDF, CM P3, LACT3 ####[place] [address] [place] [address] CO2 28 21-32 mmol/L Normal 12-07-2016 [facility] (66195) Comment: Performed By: #### HEMDF, CM P3, LACT3 ####[place] [address] [place] [address] Urea nitrogen 10 7-25 mg/dL Normal 12-07-2016 [facility] (94088) Comment: Performed By: #### HEMDF, CM P3, LACT3 ####[place] [address] [place] [address] Calcium 8.3 8.2-10.1 mg/dL Normal 12-07-2016 [facility] (13913) Comment: Performed By: #### HEMDF, CM P3, LACT3 ####[place] [address] [place] [address] Chloride 104 98-109 mmol/L Normal 12-07-2016 [facility] (23907) Comment: Performed By: #### HEMDF, CM P3, LACT3 ####[place] [address] [place] [address] Potassium molar conc 3.1 3.5-5.1 mmol/L Low 7 [facility] (81152) Comment: Performed By: #### HEMDF, CM P3, LACT3 ####[place] [address] [place] [address] Sodium 140 135-145 mmol/L Normal 12-07-2016 [facility] (07458) Comment: Performed By: #### HEMDF, CM P3, LACT3 ####[place] [address] [place] [address] rf gastrografin enema on 2016-12-06 RF Gastrografin Enema Patient Name: Gary HUFF 12-06-2016 [facility] HARESH FIN: System ([id number]) [id number] Fluoroscopy Exam Date/Time 12/06/2016 11:50:20 EDT Exam RF Therapeutic Gastrografin Enema Ordering Physician VIPUL MORELOS Accession Number [id number] CTP4 Codes 42729 (RF Therapeutic Gastrografin Enema) Reason For Exam bowel obstruction eval of sigmoid colon Report Gastrografin enema: 12/06/2016. CLINICAL INFORMATION: Bowel obstruction. FINDINGS: Fluoroscopic and film studies of the colon were obtained. 1.6 minutes of fluoroscopic time was used for the examination. 10 fluoroscopic spot images were obtained. Gastrografin was seen used. There is a long segment of narrowing in the sigmoid colon measuring upwards of 6 cm. The margins are irregular. There are some diverticuli in the vicinity. Whether this represents a diverticular stricture or colonic apple core lesion is uncertain. The colon proximal to this area is dilated. Further evaluation with colonoscopy is recommended. Since the study was performed with Gastrografin, mucosal detail was not achieved. No other gross mucosal abnormalities are identified. There is an occasional diverticula throughout the remainder of the colon. IMPRESSION: 6 cm irregular stricture in the sigmoid colon. Differential diagnosis includes diverticular stricture versus apple core carcinoma. Further evaluation with colonoscopy is recommended. Report Dictated on Final Dictated: 12/06/2016 12:47 pm Dictating Physician: MD FORBES RISA Signed Date and Time: 12/06/2016 12:53 pm Signed by: MD FORBES RISA Transcribed Date and Time: 12/06/2016 12:47 manual diff on 2016 Bands 5 % Normal 12-06-2016 [facility] (04674) Comment: Performed By: #### JIMI CARROLL, GARRETT, MGLex, IFF ####[address] [address] Erythrocyte morphology Normal Normal 017 [facility] [employer] (51948) Comment: Performed By: #### JIMI CARROLL CMP3, MGLex, IFF ####[address] [address] Lymphocytes 1.2 1.1-4.5 10*3/uL Normal 12-06-2016 [facility] (43185) Comment: Performed By: #### JIMI CARROLL, CMP3, MG3, MDIFF ####[address] [place] [address] Lymphocytes/100 leukocytes 9 % Normal [facility] (28911) Comment: Performed By: #### EMERALD3JIMI, CMP3, MG3, MDIFF ####[place] [address] [place] [address] Metamyelocytes 1 % Normal 12-06-2016 [facility] (28332) Comment: Performed By: #### JIMI CARROLL, CMP3, MG3, MDIFF ####[address] [place] [address] Monocytes 1.4 0.2-1.1 10*3/uL High 12-06-2016 [facility] (08241) Comment: Performed By: #### JIMI CARROLL, CMP3, MG3, MDIFF ####[address] [place] [address] Monocytes/100 leukocytes 11 % Normal 12-06 [facility] (47646) Comment: Performed By: #### JIMI CARROLL, CMP3, MG3, MDIFF ####[address] [place] [address] Neutrophils 10.2 2.2-8.2 10*3/uL High 12-06-2016 [facility] (81149) Comment: Performed By: #### JIMI CARROLL, CMP3, MG3, MDIFF ####[place] [address] [place] [address] Seg Neutrophils 74 % Normal 12-06-2016 [facility] (58370) Comment: Performed By: #### JIMI CARROLL, CMP3, MG3, MDIFF ####[address] [place] [address] Abs Baso Cnt 0.0 0.0-0.2 10*3/uL Normal 12-06-2016 [facility] (98436) Comment: Performed By: #### JIMI CARROLL, CMP3, MG3, MDIFF ####[place] [address] [place] [address] Basophils/100 WBC Auto (Bld) 0 % Normal 0 12-06-2016 [facility] (14740) Comment: Performed By: #### LACT3, JIMI RAMOSF, CMP3, MG3, MDIFF ####[place] [address] [place] [address] Cells counted 100 Normal 12-06-2016 [facility] (88193) Comment: Performed By: #### LACT3, JIMI RAMOSF, CMP3, MG3, MDIFF ####[place] [address] [place] [address] Eosinophils 0.0 0.0-0.5 10*3/uL Normal 12-06-2016 [facility] (01678) Comment: Performed By: #### LACT3JIMI, CMP3, MG3, MDIFF ####[place] [address] [place] [address] Eosinophils/100 leukocytes 0 % Normal [facility] (90640) Comment: Performed By: #### LACT3JIMI, CMP3, MG3, MDIFF ####[address] [place] [address] magnesium on 12-06 Magnesium 2.5 1.8-2.4 mg/dL High 12-06-2016 [facility] (82594) Comment: Performed By: #### LACT3, JIMI SPARKS, CMP3, MG3, MDIFF ####[address] [address] [place] [address] lactic acid on 2016 Lactate 1.0 0.4-2.0 mmol/L Normal 12-06-2016 [facility] (25978) Comment: Performed By: #### LACT3JIMI, CMP3, MG3, MDIFF ####[place] [address] [place] [address] hemogram w/ autodiff on 2016-12-06 Erythrocyte distribution 13.3 11.5-14.5 % Normal 12-06 [facility] width Auto Ratio (RBC) (65643) Comment: Performed By: #### EMERALD3JIMI, CMP3, MG3, MDIFF ####[place] [address] Erythrocytes (RBC) 4.82 4.40-5.90 10*6/uL Normal 12-06-2016 [facility] (55426) Comment: Performed By: #### EMERALD3JIMI, CMP3, MG3, MDIFF ####[place] [address] Hematocrit (HCT) 40.6 40.0-52.0 % Normal 12-06-2016 [facility] (36999) Comment: Performed By: #### JIMI CARROLL, CMP3, MG3, MDIFF ####[place] [address] Hemoglobin mass conc 13.6 13.0-18.0 g/dL Normal 7 [facility] (Bld) (93411) Comment: Performed By: #### JIMI CARROLL, ROBERT3, MG3, MDIFF ####[place] [address] MCH 28.2 26.0-34.0 pg Normal 12-06-2016 [facility] (94892) Comment: Performed By: #### EMERALD3JIMI, CMP3, MG3, MDIFF ####[place] [address] MCHC mass conc (RBC) 33.5 32.0-36.0 % Normal 7 [facility] (43252) Comment: Performed By: #### EMERALD3JIMI, CMP3, MG3, MDIFF ####[place] [address] MCV 84.3 80.0-98.0 fL Normal 12-06-2016 [facility] (30056) Comment: Performed By: #### JIMI CARROLL, CMP3, MG3, MDIFF ####[address] [place] [address] Platelet mean volume (PMV) 7.9 7.4-10.4 fL Normal [facility] (79975) Comment: Performed By: #### EMERALD3, JIMI SPARKS, CMP3, MG3, MDIFF ####[place] [address] [place] [address] Platelets 302 140-440 10*3/uL Normal 12-06-2016 [facility] (11182) Comment: Performed By: #### LACT3, JIMI RAMOSF, CMP3, MG3, MDIFF ####[address] [place] [address] WBC (Leukocytes) 12.9 3.6-10.7 10*3/uL High 12-06-2016 [facility] (01837) Comment: Performed By: #### EMERALD3, JIMI SPARKS, CMP3, MG3, MDIFF ####[place] [address] [place] [address] ct abdomen/pelvis w/ contrast on 2016-12-06 CT Abdomen/Pelvis w/ Patient Name: SARA, Normal 12-06-2016 [facility] Contrast [facility] ([id number]) CT Exam Date/Time 12/06/2016 12:14:[address] Abdomen/Pelvis w/ IV Contrast (IV Onl Ordering Physician VIPUL MORELOS Accession Number [id number] CPT4 Codes 46984 (CT Abdomen/Pelvis w/ IV Contrast (IV Onl), Q9967 () Reason For Exam OBSTRUCTION - INTESTINAL Report CT scan of the abdomen: 12/06/2016. CT scan of the pelvis: 12/06/2016. Clinical Information: Abdominal pain. CT scans of the abdomen: CT scans of the abdomen were performed at 3 mm slice thickness following the administration of oral and intravenous contrast. Comparison was made to prior day's study from the outside. Limited slices through the lower lung sexton reveal minimal bilateral basal atelectasis. No other pleural or parenchymal abnormalities are identified in the lung bases. The liver is diffusely low in density consistent with diffuse fatty infiltration. No focal abnormalities are identified within the liver. There is no evidence of intrahepatic biliary dilatation. The spleen is not enlarged. The pancreas and kidneys are within normal limits. No peripancreatic fluid collections or hydronephrosis are identified. No free peritoneal fluid or air is seen. No retroperitoneal lymphadenopathy is identified. There is a 1.7 cm adrenal nodule on the right probably related to a small adenoma. CT scan pelvis: CT scans of the pelvis were performed at 3 mm slice thickness with oral and intravenous contrast from the abdominal portion of the study. There is some limitation due to beam hardening artifact from patient body habitus and additional streak artifact from the recent Gastrografin enema. There is a irregular stricture in the region of the sigmoid colon. There are some diverticuli in the region. Whether these findings are related to a diverticular stricture or apple core lesion is uncertain. Further evaluation with endoscopy is recommended. No free pelvic fluid or pelvic lymphadenopathy is seen. IMPRESSION: Stricture in the sigmoid colon as described above the uncertain. Small right adrenal adenoma. Bilateral basilar atelectasis. Further clinical evaluation warranted. Report Dictated on Final Dictated: 12/06/2016 2:23 pm Dictating Physician: MD FORBES RISA Signed Date and Time: 12/06/2016 2:28 pm Signed by: MD FORBES RISA Transcribed Date and Time: 12/06/2016 2:23 comp metabolic panel on 2016-12-06 Anion gap 11 mmol/L Normal 12-06-2016 [facility] (76255) Comment: Performed By: #### JIMI CARROLL CMP3, MG3, IFF ####[address] [address] Chloride 98 98-109 mmol/L Normal 12-06-2016 [facility] (31396) Comment: Performed By: #### JIMI CARROLL CMP3, MG3, MDIFF ####[address] [address] Potassium molar conc 3.1 3.5-5.1 mmol/L Low 7 [facility] (02910) Comment: Performed By: #### JIMI CARROLL CMP3, [place], IFF ####[address] [place] [address] Sodium 135 135-145 mmol/L Normal 12-06-2016 [facility] (48206) Comment: Performed By: #### LACT3JIMI, CMP3, MG3, MDIFF ####[address] [place] [address] Alkaline phosphatase (ALP) 129 45-117 U/L High [facility] (67056) Comment: Performed By: #### LACT3, JIMI SPARKS, CMP3, MG3, MDIFF ####[address] [address] Bilirubin (total) 1.8 0.2-1.0 mg/dL High 12-06-2016 [facility] (34996) Comment: Performed By: #### LACT3JIMI, CMP3, MG3, MDIFF ####[address] [address] Protein 6.9 6.4-8.2 g/dL Normal 12-06-2016 [facility] (31375) Comment: Performed By: #### LACT3JIMI, CMP3, MG3, MDIFF ####[address] [address] Alanine aminotransferase (ALT) 144 12-78 U/L High 12-06-2016 [facility] (10774) Comment: Performed By: #### LACT3JIMI, CMP3, MG3, MDIFF ####[address] [address] Aspartate aminotransferase (AST) 121 15-37 U/L High 12-06-2016 [facility] (69375) Comment: Performed By: #### LACT3JIMI, CMP3, MG3, MDIFF ####[address] [address] Creatinine 0.80 0.55-1.40 mg/dL Normal 12-06-2016 [facility] (25204) Comment: Performed By: #### LACT3JIMI, CMP3, MG3, MDIFF ####[address] [place] [address] eGFR (black) >60.0 >60 mL/min/{1.73_m2} Normal 12-06-2016 [facility] (48228) Comment: Performed By: #### LACT3JIMI, CMP3, MG3, MDIFF ####[address] [place] [address] eGFR (non-black) >60.0 >60 mL/min/{1.73_m2} Normal 2016 [facility] ([id number]) Comment: Result Comment: Source- MDRD equation with creatinine calibration to IDMS(NKDEP)eGFR not recommen ded for drug dose adjustment Performed By: #### LACT3JIMI, CMP3, MG3, MDIFF ####[place] [address] [place] [address] Albumin 2.5 3.4-5.0 g/dL Low 12-06-2016 [facility] (65582) Comment: Performed By: #### LACT3JIMI, CMP3, MG3, MDIFF ####[place] [address] [place] [address] Calcium 8.4 8.2-10.1 mg/dL Normal 12-06-2016 [facility] (64399) Comment: Performed By: #### LACT3JIMI, CMP3, MG3, MDIFF ####[place] [address] [place] [address] Glucose mass conc 77 70-100 mg/dL Normal 12-06-2016 [facility] (26498) Comment: Performed By: #### LACT3JIMI, CMP3, MG3, MDIFF ####[address] [place] [address] Urea nitrogen 12 7-25 mg/dL Normal 12-06-2016 [facility] (50413) Comment: Performed By: #### LACT3JIMI, CMP3, MG3, MDIFF ####[place] [address] [place] [address] CO2 26 21-32 mmol/L Normal 12-06-2016 [facility] (32133) Comment: Performed By: #### LACT3, JIMI SPARKS, ROBERT3, LIVIA ONOFRE ####[address] [address] Alkaline phosphatase (ALP) 110 45-117 U/L Normal [facility] (69398) Comment: Performed By: #### CMP3 #### [address] [address] Anion gap 9 mmol/L Normal 12-06-2016 [facility] (44721) Comment: Performed By: #### CMP3 #### [address] [address] Bilirubin (total) 1.9 0.2-1.0 mg/dL High 12-06-2016 [facility] (26180) Comment: Performed By: #### CMP3 #### [address] [address] Protein 6.6 6.4-8.2 g/dL Normal 12-06-2016 [facility] (92361) Comment: Performed By: #### CMP3 #### [address] [address] Alanine aminotransferase (ALT) 135 12-78 U/L High 12-06-2016 [facility] (32197) Comment: Performed By: #### CMP3 #### [address] [address] Aspartate aminotransferase (AST) 119 15-37 U/L High 12-06-2016 [facility] (46573) Comment: Performed By: #### CMP3 #### [address] [address] Creatinine 0.80 0.55-1.40 mg/dL Normal 12-06-2016 [facility] (47602) Comment: Performed By: #### CMP3 #### [address] [address] eGFR (black) >60.0 >60 mL/min/{1.73_m2} Normal 12-06-2016 [facility] (00612) Comment: Performed By: #### CMP3 #### [place] [address] [place] [address] eGFR (non-black) >60.0 >60 mL/min/{1.73_m2} Normal 2016 [facility] (79682) Comment: Result Comment: Source- MDRD equation with creatinine calibration to IDMS(NKDEP)eGFR not recommen ded for drug dose adjustment Performed By: #### CMP3 #### [place] [address] [place] [address] Albumin 2.4 3.4-5.0 g/dL Low 12-06-2016 [facility] (27859) Comment: Performed By: #### CMP3 #### [place] [address] [place] [address] CO2 26 21-32 mmol/L Normal 12-06-2016 [facility] (02230) Comment: Performed By: #### CMP3 #### [place] [address] [place] [address] Glucose mass conc 86 70-100 mg/dL Normal 12-06-2016 [facility] (41586) Comment: Performed By: #### CMP3 #### [place] [address] [place] [address] Urea nitrogen 12 7-25 mg/dL Normal 12-06-2016 [facility] (72069) Comment: Performed By: #### CMP3 #### [place] [address] [place] [address] Calcium 8.2 8.2-10.1 mg/dL Normal 12-06-2016 [facility] (08072) Comment: Performed By: #### CMP3 #### [place] [address] [place] [address] Chloride 101 98-109 mmol/L Normal 12-06-2016 [facility] (45997) Comment: Performed By: #### CMP3 #### [place] [address] [place] [address] Potassium molar conc 3.3 3.5-5.1 mmol/L Low [facility] (72174) Comment: Performed By: #### CMP3 #### [address] [address] Sodium 136 135-145 mmol/L Normal 12-06-2016 [facility] (38083) Comment: Performed By: #### CMP3 #### [address] [address] mdrd gfr on 2016-11 eGFR (non-black) >60 >60mL/min/1.73m2 mL/min/{1.73_m2} Normal 12-05-2016 [facility] (43369) Comment: Result Comment: If the patie nt is , multiply the result by 1.210. Performed By: #### GFR ####A [address] [address] lipase blood on 11-16-25 Lipase Blood 282 73-393 U/L Normal 12-05-2016 [facility] (77791) Comment: Performed By: #### LIP ####A [address] [address] lactic acid on 2016 Lactate 1.2 0.4-2.0 mmol/L Normal 12-05-2016 [facility] (49940) Comment: Performed By: #### HEMDF, CM P3, LACT3 ####[address] [address] Lactate 0.6 0.4-2.0 mEq/L Normal 12-05-2016 [facility] (47897) Comment: Performed By: #### LAC ####A [address] [address] hepatic panel on 26-11-25 Alkaline phosphatase (ALP) 74 46-116 U/L Normal [facility] (00 000) Comment: Performed By: #### HEPAP ### [address] [address] Bilirubin Ql (U) 2.5 0.2-1.0 mg/dL High 12-05-2016 [facility] (39422) Comment: Performed By: #### HEPAP ### [address] [address] Protein 7.1 6.4-8.2 g/dL Normal 12-05-[address] [facility] [place] [place] [facility] (15124) Comment: Performed By: #### HEPAP ### [address] [address] Alanine aminotransferase (ALT) 60 12-78 U/L Normal 12-05-2016 [facility] (00 000) Comment: Performed By: #### HEPAP ### [address] [address] Aspartate aminotransferase (AST) 43 9-37 U/L High 12-05-2016 [facility] (00 000) Comment: Performed By: #### HEPAP ### [address] [address] Bilirubin (total) 1.51 0.00-0.20 mg/dL High 12-05-2016 [facility] (81976) Comment: Performed By: #### HEPAP ### [address] [address] Albumin 2.7 3.4-5.0 g/dL Low 12-05-2016 [facility] (92170) Comment: Performed By: #### HEPAP ### [address] [address] hemogram/diff on 26-11-25 Basophils Auto #/vol 0.08 0.01-0.08 thou/cmm Normal 7 [employer] [facility] (00 000) Comment: Result Comment: Smear scanne d; tech agrees with automated differential Performed By: #### CBCD1 ### [address] [address] Basophils/100 WBC Auto (Bld) 0.6 % Normal 0 12-05-2016 [facility] (75189) Comment: Performed By: #### CBCD1 ### #[facility] [place], [place] [address] Eosinophils 0.07 0.04-0.54 thou/cmm Normal 12-05-2016 [facility] (56223) Comment: Performed By: #### CBCD1 ### [address] [address] Eosinophils/100 leukocytes 0.5 % Normal [facility] (88612) Comment: Performed By: #### CBCD1 ### [address] [address] Immature Grans 4.20 % Normal 12-05-2016 [facility] (21375) Comment: Performed By: #### CBCD1 ### [address] [address] Immature Grans # 0.56 0.00-0.05 thou/cmm High 12-05-2016 [facility] (97736) Comment: Performed By: #### CBCD1 ### [address] [address] Lymphocytes 1.70 0.84-2.85 thou/cmm Normal 12-05-2016 [facility] (03444) Comment: Performed By: #### CBCD1 ### [address] [address] Lymphocytes/100 leukocytes 12.7 % Normal [facility] (70255) Comment: Performed By: #### CBCD1 ### [address] [address] Monocytes 1.52 0.30-0.82 thou/cmm High 12-05-2016 [facility] (64195) Comment: Performed By: #### CBCD1 ### [address] [address] Monocytes/100 leukocytes 11.4 % Normal 12-05 [facility] (93350) Comment: Performed By: #### CBCD1 ### [address] [address] Seg Neutrophil 70.6 % Normal 12-05-2016 [facility] (91062) Comment: Performed By: #### CBCD1 ### #[place] [id number] Seg. Neut.# 9.44 1.78-5.38 thou/cmm High 12-05-2016 [facility] (12933) Comment: Performed By: #### CBCD1 ### #[place] [address] Erythrocyte distribution 12.3 11.6-14.4 % Normal 12-05 [facility] width Auto Ratio (RBC) System (42487) Comment: Performed By: #### CBCD1 ### #[place] [address] Erythrocytes (RBC) 5.16 4.63-6.08 mil/cmm Normal 12-05-2016 [facility] (00 000) Comment: Performed By: #### CBCD1 ### #[place] [address] Hematocrit (HCT) 43.1 40.1-51.0 % Normal 12-05-2016 [facility] (12183) Comment: Performed By: #### CBCD1 ### #[place] [address] Hemoglobin mass conc 14.8 13.7-17.5 g/dL Normal 7 [facility] (00 000) Comment: Performed By: #### CBCD1 ### #[place] [address] MCH 28.7 25.7-32.2 pg Normal 12-05-2016 [facility] (31745) Comment: Performed By: #### CBCD1 ### #[place] [id number] MCHC mass conc (RBC) 34.3 32.3-36.5 % Normal 7 [facility] (02101) Comment: Performed By: #### CBCD1 ### #[place] [id number] MCV 83.5 83.2-95.6 fl Normal 12-05-2016 [facility] (36569) Comment: Performed By: #### CBCD1 ### #[facility] [place], [place] [address] Platelet mean volume (PMV) 9.3 8.7-12.0 fl Normal [facility] (00 000) Comment: Performed By: #### CBCD1 ### #[facility] [place], [place] [address] Platelets 354 141-365 thou/cmm Normal 12-05-2016 [facility] (83834) Comment: Performed By: #### CBCD1 ### #[facility] [place], [place] [address] RDW SD 37.2 36.1-45.8 fl Normal 12-05-2016 [facility] (83059) Comment: Performed By: #### CBCD1 ### [address] [address] WBC (Leukocytes) 13.37 4.23-9.07 thou/cmm High 12-05-2016 [facility] (29520) Comment: Performed By: #### CBCD1 ### [address] [address] hemogram w/ autodiff on 2016-12-05 Abs Baso Cnt 0.0 0.0-0.2 10*3/uL Normal 12-05-2016 [facility] (45508) Comment: Performed By: #### HEMDF, CM P3, LACT3 ####[place] [address] [place] [address] Basophils/100 WBC Auto (Bld) 0.1 % Normal 0 12-05-2016 [facility] (92547) Comment: Performed By: #### HEMDF, CM P3, LACT3 ####[address] [place] [address] Eosinophils 0.1 0.0-0.5 10*3/uL Normal 12-05-2016 [facility] (46127) Comment: Performed By: #### HEMDF, CM P3, LACT3 ####[address] [address] Eosinophils/100 leukocytes 0.6 % Normal [facility] (29821) Comment: Performed By: #### HEMDF, CM P3, LACT3 ####[address] [address] Erythrocyte distribution 13.2 11.5-14.5 % Normal 12-05 [facility] width Auto Ratio (RBC) (87293) Comment: Performed By: #### HEMDF, CM P3, LACT3 ####[address] [address] Erythrocytes (RBC) 4.75 4.40-5.90 10*6/uL Normal 12-05-2016 [facility] (20924) Comment: Performed By: #### HEMDF, CM P3, LACT3 ####[address] [address] Granulocytes/100 WBC (Bld) 90.0 % Normal [facility] (74725) Comment: Performed By: #### HEMDF, CM P3, LACT3 ####[address] [address] Hematocrit (HCT) 40.6 40.0-52.0 % Normal 12-05-2016 [facility] (82458) Comment: Performed By: #### HEMDF, CM P3, LACT3 ####[address] [address] Hemoglobin mass conc 13.4 13.0-18.0 g/dL Normal 7 [facility] (Bld) (36159) Comment: Performed By: #### HEMDF, CM P3, LACT3 ####[address] [address] Lymphocytes 1.0 1.0-4.3 10*3/uL Normal 12-05-2016 [facility] (09415) Comment: Performed By: #### HEMDF, CM P3, LACT3 ####[address] [place] [address] Lymphocytes/100 leukocytes 7.6 % Normal [facility] (68773) Comment: Performed By: #### HEMDF, CM P3, LACT3 ####[place] [address] [place] [address] MCH 28.3 26.0-34.0 pg Normal 12-05-2016 [facility] (36152) Comment: Performed By: #### HEMDF, CM P3, LACT3 ####[place] [address] [place] [address] MCHC mass conc (RBC) 33.0 32.0-36.0 % Normal 7 [facility] (78982) Comment: Performed By: #### HEMDF, CM P3, LACT3 ####[place] [address] [place] [address] MCV 85.6 80.0-98.0 fL Normal 12-05-2016 [facility] (73911) Comment: Performed By: #### HEMDF, CM P3, LACT3 ####[place] [address] [place] [address] Monocytes 0.2 0.0-0.8 10*3/uL Normal 12-05-2016 [facility] (41102) Comment: Performed By: #### HEMDF, CM P3, LACT3 ####[place] [place] [address] Monocytes/100 leukocytes 1.7 % Normal 12-05 [facility] (37007) Comment: Performed By: #### HEMDF, CM P3, LACT3 ####[place] [address] [place] [address] Neutrophils 11.3 1.8-7.0 10*3/uL High 12-05-2016 [facility] (79699) Comment: Performed By: #### HEMDF, CM P3, LACT3 ####[place] [place] [address] Platelet mean volume (PMV) 7.5 7.4-10.4 fL Normal [facility] (65070) Comment: Performed By: #### HEMDF, CM P3, LACT3 ####[place] [address] [place] [address] Platelets 286 140-440 10*3/uL Normal 12-05-2016 [facility] (25595) Comment: Performed By: #### HEMDF, CM P3, LACT3 ####[place] [address] [place] [address] WBC (Leukocytes) 12.6 3.6-10.7 10*3/uL High 12-05-2016 [facility] (20807) Comment: Performed By: #### HEMDF, CM P3, LACT3 ####[place] [address] [place] [address] ct abdomen and pelvis with contrast on 2016-12-05 CT ABDOMEN AND Performed at [facility] Normal 12-05-2016 [facility] PELVIS WITH [facility] Center APPROVED BY: Health System CONTRAST SYHAM BUNCH MD ([id number]) EXAMINATION: CT ABDOMEN AND PELVIS WITH IV CONTRAST CLINICAL HISTORY: Abdominal pain TECHNIQUE: CT of the abdomen and pelvis was performed using standard technique, scanning from just above the dome of the diaphragm to the symphysis pubis. M: CTAP_2 Contrast:IV [address] Radiation dose: Integrated Dose-length product (DLP) for this visit = 1365 mGy*cm.CT Dose Reduction Employed: [employer] COMPARISON: None. RESULT: Liver: Couple punctate benign-appearing calcifications Biliary: No bile duct dilation. Gallbladder is unremarkable. Spleen: No mass. Calcified granulomas Pancreas: No mass or duct dilation. Adrenals: 2 cm right adrenal nodule. 8 mm left adrenal nodule. Kidneys: Subcentimeter lesions that are too small to characterize but likely benign. GI tract: Fluid-filled dilated loops of large and small bowel to the level of the transition point at the sigmoid colon, unclear if there is possible underlying lesion or stricturing at this level. Colonic diverticula present. Normal appendix. Right colon measures up to 6.5 cm, and small bowel loops measure up to 3.9 cm. Lymph nodes: No abdominal or pelvic lymphadenopathy. Mesentery/Peritoneum: Small volume intra-abdominal ascites Vasculature: The celiac axis and SMA are patent. The portal vein and branches, splenic vein, SMV are patent. Pelvis: No mass, ascites or fluid collection. Bones/Soft Tissues: Chronic L5 pars defects bilaterally Lower thorax: Right lung base segmental atelectasis IMPRESSION: Bowel obstruction with transition point at the level of the sigmoid colon. It is unclear if there is underlying stricturing or lesion at this level. Correlation with direct visualization recommended. 2 cm indeterminate right and 8mm left adrenal nodules. Given the additional findings, correlation with nonemergent dedicated adrenal CT is recommended. Small volume intra-abdominal ascites Chronic L5 pars defects bilaterally comp metabolic panel on 2016-12-05 Albumin disregard 3.4-5.0 Critically abnormal 12-05-2016 [facility] (80293) Comment: Result Comment: CORRECTED RE SULT...Previous above value was 1.7, verified on 12/05/16 at20:24 by I/AUT . Performed By: #### HEMDF, CM P3, LACT3 ####[place] [address] [place] [address] CO2 disregard 21-32 Critically abnormal 12-05-2016 [facility] (68685) Comment: Result Comment: CORRECTED RE SULT...Previous above value was 20, verified on 12/05/16 at 20:24by I/AUT . Performed By: #### HEMDF, CM P3, LACT3 ####[place] [address] [place] [address] Glucose mass conc disregard 70-100 Critically abnormal [facility] (00 000) Comment: Result Comment: CORRECTED RE SULT...Previous above value was 88, verified on 12/05/16 at 20:24by I/AUT . Performed By: #### HEMDF, CM P3, LACT3 ####[place] [address] [place] [address] Urea nitrogen disregard 7-25 Critically abnormal 2016 [facility] (32347) Comment: Result Comment: CORRECTED RE SULT...Previous above value was 12, verified on 12/05/16 at 20:24by I/AUT . Performed By: #### HEMDF, CM P3, LACT3 ####[place] [address] [place] [address] basic panel on 2016 Creatinine 0.87 0.67-1.17 mg/dL Normal 12-05-2016 [facility] (47186) Comment: Performed By: #### P8 ####[facility] [place], [place] [address] Anion gap 13 8-16 mmol/L Normal 12-05-2016 [facility] (63828) Comment: Performed By: #### P8 ####[address] [address] Calcium 9.1 8.5-10.1 mg/dL Normal 12-05-2016 [facility] (32494) Comment: Performed By: #### P8 ####[address] [address] CO2 22 21-32 mEq/L Normal 12-05-2016 [facility] (75507) Comment: Performed By: #### P8 ####[address] [address] Glucose mass conc 103 70-99 mg/dL High 12-05-2016 [facility] (70621) Comment: Performed By: #### P8 ####[address] [address] Urea nitrogen 15 7-18 mg/dL Normal 12-05-2016 [facility] (01755) Comment: Performed By: #### P8 ####[address] [address] Chloride 100 98-107 mEq/L Normal 12-05-2016 [facility] (25397) Comment: Performed By: #### P8 ####[address] [address] Potassium molar conc 3.4 3.5-5.1 mEq/L Low 7 [facility] (35047) Comment: Performed By: #### P8 ####[address] [address] Sodium 132 136-145 mEq/L Low 12-05-2016 [facility] (56247) Comment: Performed By: #### P8 ####[place] [address] obsolete on 2016-11 OBSOLETE Refill Normal 11-15-2016 [facility] ([facility]) --------HARESH HUFF J ([id number]) 1970 MDat e Time Provider Department11/15/16 ELLA MARTIN (MARIA DE JESUS) DAVIDWS During [facility] your visit today, we recorde d the following information about you:Allison Pena Psr 11/15/2016 4:07 ([id number]) PM SignedPatient has been id entified by name and date of : YesRX INSTRUCTIONS:Patient aware RX will be sent to pharmacy. No need to notify patient.Patient has been out of his medications for several months. He is schedu led kyler appointment on 11/29/2016-and is asking if scripts can be approved?Allison España CNP 11/19/2016 7:33 AM SignedPlease let Haresh know his medications were refille d. Please have him make anappointment with one of our physicians to establish care.Thanks,Jordy Birmingham Ma 11/19/2016 7:41 AM SignedMy chart message sent.Allergies As of Date: 11/15/2016(No Known Allergies)Date Reviewed: 01/31/2016Reviewed by: Noah Elliott LPN - Fully Annamaria Miller for Visit: Refill Request [94]Order(s):Omeprazole 40 mg capsuleTake 1 capsule by carlos once daily.Disp: 90 capsuleRfl: 3 metoprolol succinate ER (TOPROL XL) 50 mg 24 hr tabletTake 1 tab let by mouth once daily.Disp: 90 tabletRfl: 3 lovastatin (MEVACOR) 10 mg tabletTake 1 tablet by mouth once daily.Disp: 90 tabletRfl: 3 lisinopril-hydrochlorothiazide (PRINZIDE, ZESTORETIC) 20-25 mg per tabletTake 1 tablet by mouth once daily.Disp: 90 tabletRfl: 3 levothyroxine (SYNTHROID) 75 mcg tabletTake 1 tablet by mouth daily before breakfast.Disp: 90 tabletRfl: 3Prescriptions as of 11/15/2016 Sig: OMEPRAZOLE 40 MG CAPSULE,AMY* Take 1 capsule by mouth once * METOPROLOL SUCCINATE ER 50 MG* Take 1 tablet by mouth once d* LOVASTATIN 10 MG TABLET Take 1 tablet by mouth once d* DIMAS NOPRIL 20 MG-HYDROCHLOROT* Take 1 tablet by mouth once d* LEVOTHYROXINE 75 MCG TABLET Take 1 tablet by mouth daily * IBUPROFEN 800 MG TABLET Take 1 tablet by mouth three * METAXALONE 800 MG TABLET [place] e 1 tablet by mouth three * DICLOFENAC 1 % TOPICAL GEL Apply 2 g to affected area tw* MISCELLANE OUS MEDICAL SUPPLY * COMPRESSION STOCKINGS KNEE HI* * THERAPEUTIC MULTIVITAMIN TABL* Take one( 1) tablet daily.Problem List As Of Date 11/15/2016 Noted Resolved ACUTE PROSTATITIS [N41.0] [facility] hypertension [I10] INVALID FOR* More... Hypothyroid [E03.9] INVALID FOR* Abdominal pain, unspecified site [R10.9] INVALID FOR* Bilateral venous insufficiency [I87.2] INVALID FOR* Varicose veins of lower extremities with other *INVALID FOR* Plantar fascial fibromatosis [M72.2] INVALID FOR* Neck pain [M54. 2] INVALID FOR*Prescriptions ordered this encounter Disp Refills Start End OMEPRAZOLE 40 MG CAPSULE,DEL AYED REL* 90 c* 3 11/19/2016 Route: ORAL Sig: Take 1 capsule by mouth once daily. METOPROLOL SUCCINATE ER 50 MG TABLET* 90 t* 3 11/19/2016 Route: ORAL Sig: Take 1 tablet by mouth once daily. LOVASTATIN 10 MG TABLET 90 t* 3 11/19/2016 Route: ORAL Sig: Take 1 tablet by mouth once daily. LISINOPRIL 20 MG -HYDROCHLOROTHIAZIDE* 90 t* 3 11/19/2016 Route: ORAL Sig: Take 1 tablet by mouth once daily. LEVOTHYROX INE 75 MCG TABLET 90 t* 3 11/19/2016 Route: ORAL Sig: Take 1 tablet by mouth daily before breakfast .Medications Discontinued During This Encounter Omeprazole 40 mg capsule 90 c* 3 04/04/2016 11/19/2016 Route: ORAL Sig: Take 1 capsule by mouth once daily. Disc: Reason for discontinue is not on file. metoprolol succinate ER (TOPROL XL) * 90 t* 3 04/04/2016 11/19/2016 Route: ORAL Sig: Take 1 tablet by m outh once daily. Disc: Reason for discontinue is not on file. lovastatin (MEVACOR) 10 mg tablet 90 t* 3 04/04/2016 11/19/2016 Route: ORAL Sig: Take 1 tablet by mouth once daily. Disc: Reason for disc ontinue is not on file. lisinopril- hydrochlorothiazide (PRIN* 90 t* 3 04/04/2016 11/19/2016 Route: ORAL Sig: Take 1 tablet by mouth once daily. Disc: Reason for discontinue is not on file. levothyroxin e (SYNTHROID) 75 mcg tab* 90 t* 3 04/04/2016 11/19/2016 Route: ORAL Sig: Take 1 tablet by mouth daily before breakfast. Disc: Reason for discontinue is not on file. S tatus:Closed by ALEJANDRA AVILES MA on 11/19/16 Encounters Date Type Reason Provider Location 12-05-2016 Ambulatory Unspecified [facility] intestinal UNKNOWN PROVIDER System (000 00) obstruction PCP No 12-05-2016 - Ambulatory [facility] 12-05-2016 Medical Center ([id number]) 12-05-2016 - Emergency Generalized INC GEMS NO Facility:[facility] 12-05-2016 department patient abdominal pain REFERRING DR SINCERE Cabrera [facility] visit [facility] Plan of Treatment Plan Description Date Location no information [facility] ([id number]) Payers Payer Name Policy Number Location Commercial Insurance Miscellaneous [facility] ([id number]) [employer] [id number] [facility] ([id number]) The following information is from the original human readable contentNo Payer Records FoundNo Payer Records FoundNo Payer Records Found Summary Purpose Family History No Family History Records FoundNo Family History Records FoundNo Family History Records FoundNo Family History Records Found Advance Directives No Advanced Directives Records FoundNo Advanced Directives Records FoundNo Advanced Directives Records FoundNo Advanced Directives Records Found Additional Source Comments FOR RECORDS PERTAINING TO PATIENTS WHO ARE OR HAVE BEEN ENROLLED IN A CHEMICAL DEPENDENCY/SUBSTANCE ABUSE PROGRAM, SOME INFORMATION MAY BE OMITTED. This clinical summary was aggregated from multiple sources. Caution should be exercised in using it in the provision of clinical care. This summary normalizes information from multiple sources, and as a consequence, information in this document may materially changethe coding, format and clinical context of patient data. In addition, data may be omittedin some cases. CLINICAL DECISIONS SHOULD BE BASED ON THE PRIMARY CLINICAL RECORDS. [facility] provides no warranty or guarantee of the accuracy or completeness of information in this document. UNRECOGNIZED CONTENT PROVIDED BELOW FOR UNRECOGNIZED SECTION No Status Records FoundNo Status Records FoundNo Status Records FoundNo Status Records Found UNRECOGNIZED CONTENT PROVIDED BELOW FOR UNRECOGNIZED SECTION INFORMATION SOURCE DATE CREATED AUTHOR AUTHOR'S ORGANIZATIO N 11/06/2017 [facility] DATE CREATED AUTHOR AUTHOR'S ORGANIZATIO N 11/06/2017 [facility] DATE CREATED AUTHOR AUTHOR'S ORGANIZATIO N 11/06/2017 [facility] DATE CREATED AUTHOR AUTHOR'S ORGANIZATIO N 11/06/2017 [facility]
== END ==
PROVIDERS: PCP Family Medicine; Referring Provider Family Medicine; Visit Provider Family Medicine
DX: E78.5 Hyperlipidemia, unspecified (principal); E03.9 Hypothyroidism, unspecified; K21.9 Gastro-esophageal reflux disease without esophagitis; I10 Essential (primary) hypertension
CPT/HCPCS: 36415; 80053; 80061; 83036; 84443; 85025

== ENCOUNTER → 2020-03-28 15:56 | Outpatient (CLI) | payer OTHER, SELFPAY ==
[2020-03-28 18:01] LABS: T4 Free Direct 1.02 ng/dL (0.76-1.46); Thyroid Stim Hormone (TSH) 6.63 uIU/mL (0.358-3.74)
== END ==
PROVIDERS: PCP Family Medicine; Visit Provider Family Medicine
DX: E03.9 Hypothyroidism, unspecified (principal)
CPT/HCPCS: 36415; 84439; 84443

== ENCOUNTER → 2020-06-08 15:58 | Outpatient (CLI) | payer OTHER, SELFPAY ==
[2020-06-08 18:35] LABS: Thyroid Stim Hormone (TSH) 4.05 uIU/mL (0.358-3.74)
== END ==
PROVIDERS: PCP Family Medicine; Visit Provider Family Medicine
DX: E03.9 Hypothyroidism, unspecified (principal)
CPT/HCPCS: 36415; 84443

== ENCOUNTER → 2020-07-08 15:43 | Outpatient (CLI) | payer OTHER, SELFPAY ==
[2020-07-08 17:53] LABS: Thyroid Stim Hormone (TSH) 2.45 uIU/mL (0.358-3.74)
== END ==
PROVIDERS: PCP Family Medicine; Visit Provider Family Medicine
DX: E03.9 Hypothyroidism, unspecified (principal)
CPT/HCPCS: 36415; 84443

== ENCOUNTER → 2020-10-01 07:25 | Outpatient (CLI) | payer OTHER, SELFPAY ==
[2020-09-23 09:25] VITALS: BMI 53.5
[2020-10-01 07:46] LABS: Absolute Lymphocyte Count 2.41 X10^3/uL (0.83-4.51); Absolute Neutrophil Count 5.6 X10^3/uL (2.0-7.7); Basophil# 0.06 X10^3/uL; Basophil% 0.6 % (0-1); Eosinophil# 0.18 X10^3/uL; Eosinophils% 1.9 % (0-5); Hematocrit 51.1 % (40-54); Hemoglobin 16.2 g/dL (13.0-16.5); Lymphocyte # 2.41 X10^3/ul (0.83-4.51); Lymphocyte % 26.1 % (19-41); Mean Corp Hgb Conc 31.7 g/dL (32-36); Mean Corpuscular Hgb 27.5 pg (27.0-32.0); Mean Corpuscular Volume 86.8 fL (80-94); Mean Platelet Vol. 9.6 fl (6.2-12.0); Monocyte# 0.92 X10^3/uL; NRBC Flagged by Analyzer 0 % (0-5); Neutrophil # 5.62 X10^3/uL (2.7-7.7); Neutrophil % 60.9 % (47-70); Platelet Count 334 K/mm3 (150-450); RBC Distribution Width SD 40.6 fl (35.1-43.9); Red Blood Count 5.89 M/mm3 (4.6-6.2); White Blood Count 9.2 K/mm3 (4.4-11.0)
[2020-10-01 08:03] LABS: AST(SGOT) 16 U/L (15-37); Alanine Aminotransfer ALT/SGPT 25 U/L (16-61); Albumin, Serum 3.8 g/dL (3.2-5.0); Alkaline Phosphatase 95 U/L (45-117); Anion Gap 7 (5-15); BUN 17 mg/dL (7-18); BUN/Creat Ratio 15.5 RATIO (10-20); Chloride 103 mmol/L (98-107); Cholesterol 183 mg/dL (200); EST Glomerular Filtration Rate 76 mL/min (>60); Est Glom Filt Rate - Afr Amer 92 mL/min (>60); Glucose 125 mg/dL (74-106); High Density Lipoprotein 40 mg/dL; Potassium 3.7 mmol/L (3.5-5.1); Protein, Total 7.8 g/dL (6.4-8.2); Sodium Level 140 mmol/L (136-145); Triglycerides 131 mg/dL; Very Low Density Lipoprotein 26 mg/dL (5-40)
== END ==
PROVIDERS: PCP Family Medicine; Referring Provider Family Medicine; Visit Provider Family Medicine
DX: E78.5 Hyperlipidemia, unspecified (principal); I10 Essential (primary) hypertension; K21.9 Gastro-esophageal reflux disease without esophagitis
CPT/HCPCS: 36415; 80053; 80061; 85025

== ENCOUNTER → 2020-10-17 15:45 | Outpatient (CLI) | payer OTHER, SELFPAY ==
[2020-09-23 09:25] VITALS: BMI 53.5
[2020-10-17 18:13] LABS: T4 Free Direct 1.13 ng/dL (0.76-1.46); Thyroid Stim Hormone (TSH) 3.38 uIU/mL (0.358-3.74)
== END ==
PROVIDERS: PCP Family Medicine; Referring Provider Family Medicine; Visit Provider Family Medicine
DX: E03.9 Hypothyroidism, unspecified (principal)
CPT/HCPCS: 36415; 84439; 84443

== ENCOUNTER → 2020-12-22 15:55 | Outpatient (CLI) | payer OTHER, SELFPAY ==
[2020-09-23 09:25] VITALS: BMI 53.5
[2020-12-22 17:52] LABS: T4 Free Direct 1.21 ng/dL (0.76-1.46); Thyroid Stim Hormone (TSH) 3.07 uIU/mL (0.358-3.74)
== END ==
PROVIDERS: PCP Family Medicine; Referring Provider Family Medicine; Visit Provider Family Medicine
DX: E03.9 Hypothyroidism, unspecified (principal)
CPT/HCPCS: 36415; 84439; 84443

== ENCOUNTER 2021-07-25 14:28 | Outpatient (CLI) | payer OTHER, SELFPAY ==
--- NOTE | 2021-07-25 14:31 | CT_ITS ---
STUDY: CT ABDOMEN AND PELVIS WITH CONTRAST REASON FOR EXAM: Male, 50 years old. LLQ AB PAIN RADIATION DOSAGE (If Supplied By Facility): CTDIvol = ( 24.33 ) mGy, DLP = ( 2208.40 ) mGycm TECHNIQUE: Transaxial images were obtained from the dome of the diaphragm to the symphysis pubis without oral contrast. Oral and amp; IV Gastrografin and amp; 100mL Isovue-300 was administered. Sagittal and coronal images were reconstructed. Individualized dose optimization techniques were used for this CT. COMPARISON: 12/01/2016 FINDINGS: The visualized lung bases are unremarkable. The visualized portions of the heart are within normal limits. Normal liver. Normal gallbladder and extrahepatic biliary system. There are multiple benign calcified granulomata of the spleen. Normal pancreas. There is a circumscribed, smooth, low attenuation right adrenal mass, consistent with an adrenal adenoma. Normal left adrenal gland. Normal right kidney. Normal left kidney. Normal visualized stomach. Normal small intestine. There is moderate diffuse diverticulosis and mild pericolonic stranding additionally at the rectosigmoid colon series 2 image 27 there is an area of likely luminal narrowing with upstream dilatation of the colon and increased stool burden. The appendix is visualized and appears normal. Normal abdominal aorta. Normal inferior vena cava. Normal retroperitoneum. Decompressed urinary bladder. Normal visualized prostate gland. Normal abdominal wall. Normal osseous structures. CT/Abdomen/Pelvis WITH Contrast IMPRESSION: Increased stranding around the sigmoid colon may indicate acute uncomplicated diverticulitis. Additionally there is an area of luminal narrowing at the rectosigmoid colon which is poorly evaluated. While this area looks grossly similar to a prior examination of 2017 and may represent scarring, mass is not excluded. Recommend follow-up colonoscopy. Right adrenal mass demonstrates slight interval increase in size compared to prior now measuring up to 3.9 cm (previously 2.7 cm). Favor myelolipoma. Electronically Signed: Matt Siu MD at 17:19 EDT ,
== END 2021-07-25 23:59 | disposition home or self-care (01) ==
PROVIDERS: PCP Family Medicine; Referring Provider Family Medicine; Visit Provider Family Medicine
DX: R10.32 Left lower quadrant pain (principal)
CPT/HCPCS: 74177; Q9967

== ENCOUNTER 2021-08-14 08:35 | Day surgery (SDC) | payer OTHER, SELFPAY ==
[2021-08-14] VITALS (7 sets, daily range): BP systolic 95–128; BP diastolic 57–93; PULSE 70–86; RESP 16–20; TEMP 36.2–36.3; O2SAT 93–100; BMI 50.1
[2021-08-14] MEDS: Lactated Ringers 1,000 ML 15 ML IV (09:05)
--- NOTE | 2021-08-14 09:29 | HP.PCM_ITS ---
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 Is patient in pain?: No Allergies No Known Allergies Allergy (Verified 08/07/21 14:39) Medications Lisinopril/Hydrochlorothiazide [Zestoretic 20/25 Tablet] 1 tab PO DAILY 12/17/14 [History Confirmed 08/07/21] Omeprazole [Prilosec] 40 mg PO DAILY 12/17/14 [History Confirmed 08/07/21] lovastatin 10 mg PO DAILY 12/17/14 [History Confirmed 08/07/21] metoprolol succinate [Toprol XL] 50 mg PO DAILY 12/01/16 [History Confirmed 08/07/21] ibuprofen 800 mg tablet 800 mg PO TID PRN 08/07/21 [History Confirmed 08/07/21] levothyroxine 75 mcg tablet 200 mcg PO DAILY tab 08/07/21 [History Confirmed 08/07/21] metaxalone 800 mg tablet 800 mg PO DAILY tab 08/07/21 [History Confirmed 08/07/21] multivitamin 1 tab PO DAILY 08/07/21 [History Confirmed 08/07/21] PFSH Medical History Complex tear of medial meniscus of right knee as current injury Sprain of unspecified site of right knee, initial encounter Surgical History H/O arthroscopy of right knee Family History (Updated 08/07/21 @ 14:38 by Diane Saturday) Father Diabetes Hypertension Social History (Updated 08/07/21 @ 14:38 by Diane Saturday) Smoking Status: Never smoker alcohol intake: never substance use type: does not use HPI HPI HPI: ANAYELI RUIZ, is a 50 M who presents to the office today for diverticulitis and abdominal pain. Patient reports he has had diverticulitis several times starting about 10 years ago. He says over the last year it is go tten much worse and he is rarely without pain. He had a CT scan recently which showed stricture and diverticulitis. He says he just finished a course of antibiotics and is going to the bathroom well. ROS General General: Yes fatigue; No weight change, appetite, colon cancer, breast cancer or weakness HEENT HEENT: Yes difficulty swallowing and eye surgery; No eye injury, swollen glands or hoarseness Endo Endocrine: No thyroid disease, diabetes mellitus, thyroid cancer, Hair loss, heat intolerance or cold intolerance Skin Skin: No rash or changing moles Musc Musculoskeletal: Yes back problems and arthritis; No rheumatoid arthritis, gout or joint pain Cardio Cardiovascular: Yes high blood pressure; No murmur, pacemaker, heart disease, atrial fibrillation, heart attack, heart stent, palpitations, shortness of breat with exertion or chest pain Psych Psychiatric: No depression, anxiety or hearing voices Resp Respiratory: No shortness of breath, No sleep apnea, Yes cough, No COPD, No asth ma, No emphysema and No wheezing Gastro Gastrointestinal: Yes abdominal pain, Yes nausea or vomiting, Yes diarrhea, Yes constipation, No blood in stool, Yes acid reflux, Yes hemorrhoids, No ulcers, No gallbladder problem and No black,tarry stools Shon Hematologic: No blood thinners, No blood disorders, No bleeding, No anemia and No blood clots Neuro Neurologic: No system reviewed and no additional complaints, except as documented, No as per HPI, No abnormal gait, No abnormal hearing, No abnormal movements, No abnormal speech, No behavioral changes, No burning sensations, No confusion, No convulsions, No disequilibrium, No dizziness, No localized weakness, No frequent falls, No headache(s), No lack of coordination, No loss of vision, No memory loss, No numbness, No other visual disturbances, No radicular pain, No restless legs, No sensory deficit, No syncope, Yes tingling, No tremor(s), No weakness and No other Exam Const General: cooperative Orientation: alert and oriented x3 HENMT Head: normal to inspection Neck Neck: normal visual inspection and full ROM Chest Chest palpation & inspection: normal inspection of the chest Resp Effort & Inspection: normal respiratory effort Auscultation: clear to auscultation bilaterally Cardio Rate: regular rate Rhythm: regular rhythm GI Inspection: non-distended Palpation: soft and nontender Skin General: no rashes or lesions noted Neuro General: patient alert and patient oriented x3 Extrem General: full ROM Psych Appearance: grossly normal Mental Status: mental status grossly normal Assessment and Plan Assessment and Plan (1) Diverticulitis: Status: Acute Orders: Orders: Colonoscopy Today Plan - Dr. Billy Ozuna MD: The patient has recurrent diverticulitis and CT scan shows a possible stricture in the sigmoid. I discussed this with him and I reviewed his CT scans. I recommend starting with a colonoscopy to evaluate this area for possible malignancy. The patient will return to the office after colonoscopy to discuss possible sigmoid colectomy. I discussed that this would be difficult due to his body habitus and BMI. Patient understands and will start with colonoscopy. I explained endoscopy in detail to the patient. I explained the risks including but not limited to stroke or heart attack with anesthesia, perforation of the GI tract, bleeding, infection. I explained that any of these could necessitate further emergency surgery. The patient understands and all questions were answered sufficiently. The patient wishes to proceed with procedure. Billy Ozuna MD Pager: [facility] [address] [place] [address] [address] [place] [address] Office: I have re-examined the patient. There are no clinical changes since date of exam.
--- NOTE | 2021-08-14 10:00 | COLBX_PTH ---
PATIENT: ANAYELI RUIZ LOC: EN U#:[id number] AGE/SX: 50/M ROOM: RE08/14/[address]: Dr. Billy Oznua MD : 1970 BED: DIS: 08/14/2021 SPEC #: [id number] RECD: 08/14/21 12:18 STATUS: CARLOTA OLEARY #: [id number] CARINA: 08/14/21 10:[address]: Billy Ozuna DEPT: SURGICAL PATHOLOGY RECD BY: Krissy Pelaez ENTERED: 08/14/21 12:41 SP TYPE: COLON BX OTHR DR: Dr. Leidy Landa MD Tissues: Sigmoid colon biopsy Procedures: Surgery Specimen Level IV HEADER OPERATION: Colonoscopy (MAC), polypectomy PRE-OP DIAGNOSIS: Diverticulitis TISSUE SUBMITTED: Sigmoid polyps at 30 cm gena MICROSCOPIC DIAGNOSIS Sigmoid polyp at 30 cm, polypectomy: Consistent with fragments of inflammatory polyp with ulceration and associated inflammation. See comment. VANDA:carla 08/15/2021 COMMENT Correlation with clinical, endoscopic findings and appropriate follow up are necessary. MICROSCOPIC DESCRIPTION Slides are reviewed. GROSS DESCRIPTION Received in fixative is one container labeled with the patient's name and designated sigmoid polyps at 30 cm. The specimen consists of multiple irregular fragments of light ramachandran soft tissue that in aggregate measure 2.5 x 1 x 0.2 cm. The specimen is totally submitted in one cassette. / AM:carla 08/14/2021 TC:5 CPT: 65905
--- NOTE | 2021-08-14 10:32 | OP.COLON_ITS ---
Patient Name: Haresh Huff Procedure Date: 08/14/2021 9:53 AM Date of : 1970 Age: 50 Procedure: Colonoscopy Indications: Abdominal pain in the left lower quadrant, Abnormal CT of the GI tract, Follow-up of diverticulitis Providers: Billy Ozuna MD Medicines: Monitored Anesthesia Care Patient Profile: This is a 50 year old male. Refer to note in patient chart for documentation of history and physical. Last Colonoscopy: none. The patient's first colonoscopy is today. Complications: No immediate complications. Procedure: Pre-Anesthesia Assessment: - Prior to the procedure, a History and Physical was performed, and patient medications and allergies were reviewed. The patient's tolerance of previous anesthesia was also reviewed. The risks and benefits of the procedure and the sedation options and risks were discussed with the patient. All questions were answered, and informed consent was obtained. Prior Anticoagulants: The patient has taken no previous anticoagulant or antiplatelet agents. After reviewing the risks and benefits, the patient was deemed in satisfactory condition to undergo the procedure. After I obtained informed consent, the scope was passed under direct vision. Throughout the procedure, the patient's blood pressure, pulse, and oxygen saturations were monitored continuously. The colonoscope was introduced through the anus and advanced to the cecum, identified by appendiceal orifice and ileocecal valve. The colonoscopy was performed without difficulty. The patient tolerated the procedure well. The quality of the bowel preparation was good. Scope In: 10:03:57 AM Scope Withdrawal Time 0 hours 18 minutes 0 seconds Scope Out: 10:26:51 AM Total Procedure Duration Time 0 hours 22 minutes 54 seconds Findings: Multiple polyps were found in the sigmoid colon. These polyps were removed with a hot snare. Polyp resection was incomplete. The resected tissue was retrieved. There was a stricture at 30 cm from anus in the sigmoid with polypoid tissue that was biopsied with snare. Impression: - Multiple polyps in the sigmoid colon, removed with a hot snare. Incomplete resection. Resected tissue retrieved. Recommendation: - Discharge patient to home. - Resume previous diet. - Continue present medications. - Await pathology results. - Repeat colonoscopy for surveillance based on pathology results. - Return to my office in 1 week. Procedure Code(s): --- Professional --- 54024, Colonoscopy, flexible; with removal of tumor(s), polyp(s), or other lesion(s) by snare technique Diagnosis Code(s): --- Professional --- D12.5, Benign neoplasm of sigmoid colon R10.32, Left lower quadrant pain K57.32, Diverticulitis of large intestine without perforation or abscess without bleeding R93.3, Abnormal findings on diagnostic imaging of other parts of digestive tract CPT copyright 2017 [employer] [place] [employer]. All rights reserved. The codes documented in this report are preliminary and upon mobile device engineer review may be revised to meet current compliance requirements. Billy Ozuna MD 08/14/2021 10:31:34 AM This report has been signed electronically. Number of Addenda: 0 Note Initiated On: 08/14/2021 9:53 AM
--- NOTE | 2021-08-14 10:33 | OP.CCLET_ITS ---
08/14/2021 Leidy Landa [place] [address] [place] [address] Re : Colonoscopy procedure for Haresh Huff Dear Dr. Landa This procedure was performed on Saturday, August 14, 2021. My impressions and recommendations are as follows: Impressions : - Multiple polyps in the sigmoid colon, removed with a hot snare. Incomplete resection. Resected tissue retrieved. Recommendations : - Discharge patient to home. - Resume previous diet. - Continue present medications. - Await pathology results. - Repeat colonoscopy for surveillance based on pathology results. - Return to my office in 1 week. My findings are described in the full procedure note, which is enclosed. If I can be of further assistance, please feel free to contact me at Doctor phone number(s): , Work: . Sincerely, Billy Ozuna MD 08/14/2021 10:31:34 AM This report has been signed electronically.
== END 2021-08-14 23:59 | disposition home or self-care (01) ==
LOC: EN 08:35 → AC 08:36
PROVIDERS: PCP Family Medicine; Referring Provider Family Medicine; Visit Provider Surgery
PROC: 0DJD8ZZ Inspection of Lower Intestinal Tract, Via Natural or Artificial Opening Endoscopic (ICD-10-PCS; CPT 45378; principal; 2021-08-14 09:55)
DX: D12.5 Benign neoplasm of sigmoid colon (principal); K57.32 Diverticulitis of large intestine without perforation or abscess without bleeding; R10.32 Left lower quadrant pain; R93.3 Abnormal findings on diagnostic imaging of other parts of digestive tract; E07.9 Disorder of thyroid, unspecified; E78.00 Pure hypercholesterolemia, unspecified; K21.9 Gastro-esophageal reflux disease without esophagitis; M19.90 Unspecified osteoarthritis, unspecified site; Z79.899 Other long term (current) drug therapy
CPT/HCPCS: 45385; 88305; J7120

== ENCOUNTER 2021-09-11 05:49 | Inpatient (IN) | payer OTHER, SELFPAY ==
--- NOTE | 2021-09-06 16:06 | EKG12_ITS ---
Test Reason : PRE OP Blood Pressure : / mmHG Vent. Rate : 075 BPM Atrial Rate : 075 BPM P-R Int : 154 ms QRS Dur : 092 ms QT Int : 396 ms P-R-T Axes : 034 018 073 degrees QTc Int : 442 ms Normal sinus rhythm Normal ECG Confirmed by RAIMUNDO RAMOS, YOVANA ([id number]), editor index DANGELO ALONZO ([id number]) on 09/08/2021 10:26:02 AM Referred By: FRITZ Confirmed By:YOVANA EUBANKS MD
[2021-09-06 17:10] LABS: Hematocrit 43.3 % (40-54); Hemoglobin 14.2 g/dL (13.0-16.5); Mean Corp Hgb Conc 32.8 g/dL (32-36); Mean Corpuscular Hgb 27.7 pg (27.0-32.0); Mean Corpuscular Volume 84.4 fL (80-94); Mean Platelet Vol. 9.5 fl (6.2-12.0); Platelet Count 323 K/mm3 (150-450); RBC Distribution Width CV 12.5 % (11.6-14.6); RBC Distribution Width SD 38.3 fl (35.1-43.9); Red Blood Count 5.13 M/mm3 (4.6-6.2); White Blood Count 10.1 K/mm3 (4.4-11.0)
[2021-09-06 17:53] LABS: Anion Gap 7 (5-15); BUN 21 mg/dL (7-18); BUN/Creat Ratio 13.5 RATIO (10-20); Calcium,Total 9.3 mg/dL (8.5-10.1); Chloride 104 mmol/L (98-107); Creatinine, Serum 1.55 mg/dL (0.70-1.30); EST Glomerular Filtration Rate 51 mL/min (>60); Est Glom Filt Rate - Afr Amer 61 mL/min (>60); Glucose 105 mg/dL (74-106); Potassium 4.1 mmol/L (3.5-5.1); Sodium Level 136 mmol/L (136-145); Thyroid Stim Hormone (TSH) 1.76 uIU/mL (0.358-3.74)
[2021-09-11] VITALS (12 sets, daily range): BP systolic 123–176; BP diastolic 64–96; PULSE 76–87; RESP 16–28; TEMP 35.7–37; O2SAT 94–100; BMI 50.3; BMI 51.7
[2021-09-11] MEDS: Lactated Ringers 1,000 ML 15 ML IV (06:45)
--- NOTE | 2021-09-11 06:45 | HP.PCM_ITS ---
History and Physical Date of Admission: 09/11/21 Intake Vital Signs 08/22/21 13:20 Height 6 ft 2 in Weight: 403 lb 8 oz BMI 51.7 Intake Visit Reasons: 1 W FU COLONOSCOPY 08/14/2021 Chief Complaint: Colonoscopy Allergies No Known Allergies Allergy (Verified 08/22/21 13:08) Medications Lisinopril/Hydrochlorothiazide [Zestoretic 20/25 Tablet] 1 tab PO DAILY 12/17/14 [History Confirmed 08/22/21] Omeprazole [Prilosec] 40 mg PO DAILY 12/17/14 [History Confirmed 08/22/21] lovastatin 10 mg PO DAILY 12/17/14 [History Confirmed 08/22/21] metoprolol succinate [Toprol XL] 50 mg PO DAILY 12/01/16 [History Confirmed 08/22/21] ibuprofen 800 mg tablet 800 mg PO TID PRN 08/07/21 [History Confirmed 08/22/21] levothyroxine 75 mcg tablet 200 mcg PO DAILY tab 08/07/21 [History Confirmed 08/22/21] multivitamin 1 tab PO DAILY 08/07/21 [History Confirmed 08/22/21] metronidazole 500 mg tablet 500 mg PO .COMPLEX #3 tab 08/22/21 [Rx Confirmed 08/22/21] neomycin 500 mg tablet 1 g PO .COMPLEX #6 tab 08/22/21 [Rx Confirmed 08/22/21] PFSH Medical History Arthritis Back pain Chronic cough Complex tear of medial meniscus of right knee as current injury Gastric reflux High cholesterol Non-smoker Sprain of unspecified site of right knee, initial encounter Thyroid disease Surgical History H/O arthroscopy of right knee History of colonoscopy (~08/2021) History of eye surgery History of throat surgery Family History Father Diabetes Hypertension Social History Smoking Status: Never smoker alcohol intake: never substance use type: does not use HPI HPI HPI: ANAYELI RUIZ, is a 50 M who presents to the office today for discussion of surgery. Patient had colonoscopy to evaluate his diverticular stricture. Patient's polyps from his colonoscopy were inflammatory polyps. There was no malignancy identified. ROS General General: Yes fatigue; No weight change, appetite, colon cancer, breast cancer or weakness HEENT HEENT: Yes difficulty swallowing and eye surgery; No eye injury, swollen glands or hoarseness Endo Endocrine: No thyroid disease, diabetes mellitus, thyroid cancer, Hair loss, heat intolerance or cold intolerance Skin Skin: No rash or changing moles Musc Musculoskeletal: Yes back problems and arthritis; No rheumatoid arthritis, gout or joint pain Cardio Cardiovascular: Yes high blood pressure; No murmur, pacemaker, heart disease, atrial fibrillation, heart attack, heart stent, palpitations, shortness of breat with exertion or chest pain Psych Psychiatric: No depression, anxiety or hearing voices Resp Respiratory: No shortness of breath, No sleep apnea, Yes cough, No COPD, No asthma, No emphysema and No wheezing Gastro Gastrointestinal: Yes abdominal pain, Yes nausea or vomiting, Yes diarrhea, Yes constipation, No blood in stool, Yes acid reflux, Yes hemorrhoids, No ulcers, No gallbladder problem and No black,tarry stools Shon Hematologic: No blood thinners, No blood disorders, No bleeding, No anemia and No blood clots Neuro Neurologic: No system reviewed and no additional complaints, except as documented, No as per HPI, No abnormal gait, No abnormal hearing, No abnormal movements, No abnormal speech, No behavioral changes, No burning sensations, No confusion, No convulsions, No disequilibrium, No dizziness, No localized weakness, No frequent falls, No headache(s), No lack of coordination, No loss of vision, No memory loss, No numbness, No other visual disturbances, No radicular pain, No restless legs, No sensory deficit, No syncope, Yes tingling, No tremor(s), No weakness and No other Exam Const General: cooperative Orientation: alert and oriented x3 HENMT Head: normal to inspection Neck Neck: normal visual inspection and full ROM Chest Chest palpation & inspection: normal inspection of the chest Resp Effort & Inspection: normal respiratory effort Auscultation: clear to auscultation bilaterally Cardio Rate: regular rate Rhythm: regular rhythm GI Inspection: non-distended Palpation: soft and nontender Skin General: no rashes or lesions noted Neuro General: patient alert and patient oriented x3 Extrem General: full ROM Psych Appearance: grossly normal Mental Status: mental status grossly normal Assessment and Plan Assessment and Plan (1) Diverticular stricture: Status: Acute (2) Diverticulitis: Status: Acute Plan - Dr. Billy Ozuna MD: The patient has frequently recurring diverticulitis and he has developed a diverticular stricture that was on the CT scan. This was confirmed on colonoscopy. The area of his stricture was biopsied several times did not show any malignancy. I discussed elective surgery with him. I discussed laparoscopic sigmoid colectomy with anastomosis. I did discuss the procedure in detail as well as the risks including but not limited to bleeding, infection, anastomotic leak, injury to ureters or bowel or bladder, need for conversion to open surgery. Patient understands all the risks. I did explain that his surgery be more complicated due to his body habitus. Patient understood and all questions were answered. I will schedule him for laparoscopic sigmoid colectomy. Billy Ozuna MD Pager: [facility] [address] [place] [address], [address] [place] [address] Office: I have re-examined the patient. There are no clinical changes since date of exam.
--- NOTE | 2021-09-11 07:30 | COL_PTH ---
PATIENT: ANAYELI RUIZ LOC: MS3 U#:[id number] AGE/SX: 50/M ROOM: MO311 RE09/11/[address]: Dr. Santos Park MD : 1970 BED: 1 DIS: 09/16/2021 SPEC #: [id number] RECD: 09/11/21 14:10 STATUS: CARLOTA MENDEZCollin #: [id number] CARINA: 09/11/21 07:[address]: Billy Ozuna DEPT: SURGICAL PATHOLOGY RECD BY: Krissy Pelaez ENTERED: 09/12/21 08:21 SP TYPE: COLON OTHR DR: Dr. Leidy Landa MD Tissues: A - Colon, NOS B - Colon Donuts Procedures: Surgery Specimen Level III Surgery Specimen Level V HEADER OPERATION: Laparoscopic, Hand assist, Sigmoid Colectomy, Splenic Flexure PRE-OP DIAGNOSIS: Diverticular stricture, Diverticulitis TISSUE SUBMITTED: A - Sigmoid colon, B - Donuts MICROSCOPIC DIAGNOSIS A. Sigmoid colon, colectomy: Diverticulosis. Inflammatory polyps x4. B. Donuts: Colonic donuts, no pathologic diagnosis. VANDA:carla 09/13/2021 MICROSCOPIC DESCRIPTION Slides are reviewed. GROSS DESCRIPTION A - Received in fixative is one container labeled with the patient's name and designated sigmoid colon. The specimen consists of a segment of colon measuring 12 cm in length. One resection margin is stapled and other resection margin is opened. 4 cm away from the opened resection margin there is a pink, congested polyp measuring 3.5 x 0.5 cm. Three additional polyps are also noted measuring 0.2 to 1 cm in greatest dimension. The lumen contains fecal material. Sections reveal multiple diverticula. No obviously ruptured diverticula are noted. Some of the diverticula are filled with fecal material. Also present in the container is a detached piece of bowel tissue with coral measuring 7 x 2 x 1.5 cm. No mass lesion is identified. Sections of pericolonic adipose tissue do not reveal any obviously enlarged lymph node. Manager Story sections are submitted as follows: 1 - open resection margin, 2??stapled margin, 3 & 4 - smaller polyp, 5 & 6 - largest polyp, 7-9 - diverticula, 10 & 11 - detached piece of colonic tissue with staple, 12 - pericolonic adipose tissue. / VANDA:carla 09/12/2021 B - Received in fixative is one container labeled with the patient's name and designated donuts. The specimen consists of two donut-shaped pieces of bowel tissue measuring 1.5 x 1 x 1 cm and 2 x 1.5 x 0.5 cm. One of the donuts also show plastic clips. Manager Story sections are submitted in one cassette. / VANDA:carla 09/12/2021 TC:5 CPT: 11448, 42230
[2021-09-11] MEDS: Cefotetan 2 GM in 0.9% NS 100 ML IV (07:35)
[2021-09-11] MEDS: Lubricating Jelly 60 GM Tube 30 GM (07:54)
[2021-09-11] MEDS: BUPIVACAINE LIPOSOME/PF 20 ML VIAL OPERA.SITE (08:20)
[2021-09-11] MEDS: 0.9% Normal Saline (Pres. free 10 ML Vial (08:20)
--- NOTE | 2021-09-11 13:40 | PCM.OPRPT ---
Problems Associated Problem List Diagnoses (1) Diverticular stricture: Report of Operation Date of Procedure: 09/11/21 Pre-Operative Diagnosis: Diverticulosis with diverticular stricture Post-Operative Diagnosis: Same Surgery/Procedure Performed:: 1. Laparoscopic sigmoid colectomy 2. Takedown of splenic flexure Specimen's removed: Sigmoid colon Description of Procedure: Patient was brought back to the operating room and general anesthesia was induced. The patient was placed in stirrups. The rectum was irrigated with a Betadine and saline solution. A Pham catheter was then placed. The abdomen was then prepped and draped in usual sterile fashion. A midline incision was made superior to the umbilicus and using Visiport technique a 5 mm port was placed. The abdomen was inflated to 15 mmHg. Next the patient was placed in Trendelenburg position and an additional 12 mm port was placed in the right lower quadrant and a 5 mm port was placed in the right upper quadrant. A left upper quadrant 5 mm port was placed as well. Next the colon was inspected and there was inflammation of the sigmoid colon tightly adherent to the left pelvic wall. The lateral connections were taken down inferiorly until the inflammation was encountered and as well in the pelvis on the left side superiorly. Next the inflamed area was slowly taken down off the lateral sidewall sparing the left ureter. The left ureter is identified and appeared intact. Next a window was made in the mesentery and this was followed inferiorly until the rectum was encountered. A stapler was used to take down the sigmoid rectum junction and then the mesentery to the sigmoid was taken down using Enseal. Clips were used for the major vessels. Next the lateral sidewall to the descending colon was taken down and the splenic flexure was released using Enseal. Next a midline incision was created inferior to the umbilicus and a HandPort was placed and the assistant film editor uses the hand port to manipulate the bowel and take down the rest the mesentery. Next the abdomen was allowed to desufflate and the specimen site was brought through the wound protector and divided at healthy bowel. It was too large to place a pursestring suture for an EEA stapler so the anvil was placed through one of the tenia and then the distal end of the descending colon was closed with several firings of an [place] stapler. It was returned to the abdomen and the abdomen was reinsufflated. The EEA stapler was placed through the rectum and then the anvil was placed onto it. The stapler was fired and then I will leak test was performed. The leak test was good with no leak. The pelvis was suctioned dry. There is good hemostasis. Next the wound protector was removed and the fascia was closed with the running #1 PDS suture from the top and bottom meeting in the middle. All the incisions were injected with local anesthetic and closed with interrupted 4-0 Monocryl suture. Steri-Strips and bandages were applied. Patient was then awoken and taken to PACU in stable condition with Pham in place. Admit VTE Documentation VTE Mechan Device Prophylaxis: SCD's
[2021-09-11] MEDS: 0.9% Normal Saline 1,000 ML 125 ML IV ×2 (16:00→23:44)
[2021-09-11] MEDS: Ketorolac 15 MG/ML Vial IV (17:56)
[2021-09-11] MEDS: Atorvastatin Calcium 10 MG Tablet 5 MG PO (21:39)
[2021-09-11] MEDS: 0.9% Saline Lock 10 ML Syringe IV (21:40)
[2021-09-11] MEDS: Acetaminophen 325 MG Tablet 650 MG PO (21:40)
[2021-09-11] MEDS: HYDROmorphone 1 MG/ML Syringe IV (21:41)
[2021-09-12] VITALS (7 sets, daily range): BP systolic 112–154; BP diastolic 43–80; PULSE 63–96; RESP 15–18; TEMP 36.8–37.7; O2SAT 93–98
[2021-09-12] MEDS: Ketorolac 15 MG/ML Vial IV (02:21)
[2021-09-12] MEDS: 0.9% Saline Lock 10 ML Syringe IV (02:21)
[2021-09-12] MEDS: Levothyroxine 100 MCG Tablet 200 MCG PO (06:04)
[2021-09-12] MEDS: Acetaminophen 325 MG Tablet 650 MG PO (06:09)
[2021-09-12 06:23] LABS: Absolute Lymphocyte Count 1.35 X10^3/uL (0.83-4.51); Absolute Neutrophil Count 16.3 X10^3/uL (2.0-7.7); Basophil# 0.04 X10^3/uL; Basophil% 0.2 % (0-1); Hematocrit 44.6 % (40-54); Hemoglobin 14.6 g/dL (13.0-16.5); Lymphocyte # 1.35 X10^3/ul (0.83-4.51); Lymphocyte % 6.8 % (19-41); Mean Corp Hgb Conc 32.7 g/dL (32-36); Mean Corpuscular Hgb 28.1 pg (27.0-32.0); Mean Corpuscular Volume 85.8 fL (80-94); Mean Platelet Vol. 9.3 fl (6.2-12.0); Monocyte# 1.82 X10^3/uL; Monocyte% 9.2 % (0-10); NRBC Flagged by Analyzer 0 % (0-5); Neutrophil # 16.31 X10^3/uL (2.7-7.7); Neutrophil % 82.8 % (47-70); POSITIVE DIFFERENTIAL YES; Platelet Count 353 K/mm3 (150-450); RBC Distribution Width CV 12.6 % (11.6-14.6); RBC Distribution Width SD 39.3 fl (35.1-43.9); White Blood Count 19.7 K/mm3 (4.4-11.0)
[2021-09-12 06:28] LABS: Differential Indicated SCAN CRITERIA MET
[2021-09-12 06:44] LABS: Differential Comment SCANNED
[2021-09-12 06:52] LABS: Anion Gap 6 (5-15); BUN 21 mg/dL (7-18); BUN/Creat Ratio 14.2 RATIO (10-20); Calcium,Total 8.5 mg/dL (8.5-10.1); Chloride 100 mmol/L (98-107); Creatinine, Serum 1.48 mg/dL (0.70-1.30); EST Glomerular Filtration Rate 54 mL/min (>60); Est Glom Filt Rate - Afr Amer 65 mL/min (>60); Glucose 154 mg/dL (74-106); Potassium 4.6 mmol/L (3.5-5.1); Sodium Level 133 mmol/L (136-145)
[2021-09-12] MEDS: 0.9% Normal Saline 1,000 ML 125 ML IV ×3 (07:18→22:11)
--- NOTE | 2021-09-12 07:45 | PN.SURG_ITS ---
Subjective Subjective Patient reports that a lot is not helping much. He did have some loose bowel movements. No nausea or vomiting overnight. Objective Data Objective Data Vital Signs: Vital Signs Temp Pulse Resp BP Pulse Ox 99.8 F H 80 16 154/80 H 95 09/12/21 06:23 09/12/21 06:23 09/12/21 06:23 09/12/21 06:23 09/12/21 06:23 Oxygen Flow Rate (L/min) 2 Oxygen Delivery Method Room Air Weight: 402 lb 9.025 oz Body Mass Index (BMI) 51.7 Intake & Output: Intake and Output for Last 24 Hours 09/10/21 09/11/21 09/12/21 23:59 23:59 23:59 Intake Total 5166.67 / 5166.67 945.83 / 945.83 Output Total 585 / 585 175 / 175 Balance 4581.67 / 4581.67 770.83 / 770.83 Lab / Micro Data Result Diagrams: 09/12/21 06:10 09/12/21 06:10 Labs: Laboratory Results - last 24 hr 09/12/21 06:10: WBC 19.7 H, RBC 5.20, Hgb 14.6, Hct 44.6, MCV 85.8, MCH 28.1, MCHC 32.7, RDW Std Deviation 39.3, RDW Coeff of Sheila 12.6, Plt Count 353, MPV 9.3, Immature Gran % (Auto) 1.000 H, Neut % (Auto) 82.8 H, Lymph % (Auto) 6.8 L, [place] % (Auto) 9.2, Eos % (Auto) 0.0, Baso % (Auto) 0.2, Absolute Neuts (auto) 16.3 H, Absolute Lymphs (auto) 1.35, Nucleated RBC % 0, Differential Comment SCANNED, Diff Path Review September09/12/21 06:10: Sodium 133 L, Potassium 4.6, Chloride 100, Carbon Dioxide 27.0, Anion Gap 6, BUN 21 H, Creatinine 1.48 H, Estim Creat Clear Calc 70.20, Est GFR (MDRD) Af Amer 65, Est GFR (MDRD) Non-Af 54 L, BUN/Creatinine Ratio 14.2, Glucose 154 H, Calcium 8.5 Physical Exam Const no apparent distress Resp normal respiratory effort Cardio regular rate and regular rhythm GI soft to palpation Palpation: tender Assessment & Plan Assessment/Plan (1) Diverticular stricture: PLAN: Patient reports the pain medication is not working and so I will increase the dosage due to his weight. Patient did have some loose bowel movements and his urine output was marginal. I will start clear liquid diet. If his urine output picks up I will remove his Pham. Continue to encourage ambulation and incentive spirometer. Billy Ozuna MD Pager: [facility] [address] [place] [address] [address] [place] [address] Office:
[2021-09-12] MEDS: oxyCODONE 5 MG Tablet 10 MG PO ×3 (09:33→22:11)
[2021-09-12] MEDS: Pantoprazole Sodium 40 MG Tablet PO (09:34)
[2021-09-12] MEDS: Lisinopril 20 MG Tablet PO (09:34)
[2021-09-12] MEDS: Metoprolol(XL)Succ 50 MG Tablet PO (09:34)
[2021-09-12] MEDS: hydroCHLOROthiazide 25 MG Tablet PO (09:34)
--- NOTE | 2021-09-12 10:15 | CASEMGMT ---
RN CM Face to Face with patient for initial transition planning/care coordination assessment. RN CM introduced self and role at [facility]. Patient sitting in chair, alert and oriented. Patient willing to participate in assessment and is able to answer all questions appropriately. Care providers, pharmacy, and demographics verified. Patient wishes to discharge home, denies need for home health at this time. Patient states he has no further needs or concerns at this time. CM to follow for discharge planning needs that may arise. PCP: Cordell Specialists: surgeon Laith Preferred Pharmacy: [facility] retail at discharge. Insurance: [employer] Prescription Benefit: yes Living Will/HPOA: none LNOK: mother, sister, nephew Living Arrangements: Patient lives with mother in 2 story home. Patient states he is normally independent and able to ambulate stairs. Transportation: sister DME/HHC: Patient states he has walker available at home. Patient denies previous HHC or SNF. Disposition Plan: Patient to discharge home with family support and follow-up plans in place. Dang WRIGHT, RN, CM
--- NOTE | 2021-09-12 13:04 | CHAPLAIN ---
Type of Pastoral Visit _x__ Initial Visit ___ Follow-up Visit ___ On-call Visit ___ General Patient Visit ___ Spiritual Assessment ___ Family Conference ___ Bereavement ___ Rapid Response ___ Code Blue ___ Other (describe below) Pastoral Care Referral From _x__ Patient ___ Family ___ Nurse ___ Physician ___ Cultural Centre Manager ___ Roll Bucker ___ Other (describe below) Sacrament/Intervention _x__ Active listening ___ Anointing ___ Hoahaoism ___ Bereavement ___ Communion ___ Jenifer exploration ___ ___ Life review ___ Prayer ___ Reconciliation ___ Sacrament of Sick ___ Supportive presence ___ Wedding ___ Other (describe below) Pastoral Comments patient reports on his procedure and follow up; pt has no issues but that to navigate through the immediate healing process today
[2021-09-12] MEDS: Atorvastatin Calcium 10 MG Tablet 5 MG PO (22:11)
[2021-09-13] VITALS (7 sets, daily range): BP systolic 109–136; BP diastolic 40–71; PULSE 89–110; RESP 15–18; TEMP 37.1–38.4; O2SAT 92–97
[2021-09-13] MEDS: oxyCODONE 5 MG Tablet 10 MG PO ×3 (03:13→17:54)
[2021-09-13 05:45] LABS: Absolute Lymphocyte Count 1.46 X10^3/uL (0.83-4.51); Absolute Neutrophil Count 12.1 X10^3/uL (2.0-7.7); Basophil# 0.05 X10^3/uL; Basophil% 0.3 % (0-1); Eosinophil# 0.09 X10^3/uL; Eosinophils% 0.6 % (0-5); Hematocrit 37.5 % (40-54); Hemoglobin 11.9 g/dL (13.0-16.5); Lymphocyte # 1.46 X10^3/ul (0.83-4.51); Lymphocyte % 9.4 % (19-41); Mean Corp Hgb Conc 31.7 g/dL (32-36); Mean Corpuscular Hgb 27.5 pg (27.0-32.0); Mean Corpuscular Volume 86.8 fL (80-94); Mean Platelet Vol. 9.5 fl (6.2-12.0); Monocyte# 1.66 X10^3/uL; Monocyte% 10.7 % (0-10); NRBC Flagged by Analyzer 0 % (0-5); Neutrophil # 12.05 X10^3/uL (2.7-7.7); POSITIVE DIFFERENTIAL YES; Platelet Count 299 K/mm3 (150-450); RBC Distribution Width CV 12.6 % (11.6-14.6); RBC Distribution Width SD 40.1 fl (35.1-43.9); Red Blood Count 4.32 M/mm3 (4.6-6.2); White Blood Count 15.5 K/mm3 (4.4-11.0)
[2021-09-13 05:47] LABS: Differential Indicated SCAN CRITERIA MET
[2021-09-13] MEDS: 0.9% Normal Saline 1,000 ML 125 ML IV (06:18)
[2021-09-13 06:22] LABS: Anion Gap 5 (5-15); BUN 13 mg/dL (7-18); BUN/Creat Ratio 11.8 RATIO (10-20); Calcium,Total 8.7 mg/dL (8.5-10.1); Chloride 102 mmol/L (98-107); EST Glomerular Filtration Rate 75 mL/min (>60); Est Glom Filt Rate - Afr Amer 91 mL/min (>60); Estimated Creatinine Clearance 94.45 ml/min; Glucose 106 mg/dL (74-106); Potassium 3.8 mmol/L (3.5-5.1); Sodium Level 133 mmol/L (136-145)
[2021-09-13] MEDS: Levothyroxine 100 MCG Tablet 200 MCG PO (06:34)
--- NOTE | 2021-09-13 07:29 | PCM.PN.SRG ---
Objective Data Objective Data Vital Signs: Vital Signs Temp Pulse Resp BP Pulse Ox 99.9 F H 90 15 121/40 H 92 09/13/21 03:04 09/13/21 03:04 09/13/21 05:00 09/13/21 03:04 09/13/21 03:04 Oxygen Flow Rate (L/min) 2 Oxygen Delivery Method Room Air Weight: 402 lb 9.025 oz Body Mass Index (BMI) 51.7 Intake & Output: Intake and Output for Last 24 Hours 09/11/21 09/12/21 09/13/21 23:59 23:59 23:59 Intake Total 5166.67 / 5166.67 4006.25 / 4006.25 1400 / 1400 Output Total 585 / 585 875 / 2275 2350 / 2350 Balance 4581.67 / 4581.67 3131.25 / 1731.25 -950 / -950 Lab / Micro Data Result Diagrams: 09/13/21 04:54 09/13/21 04:54 Labs: Laboratory Results - last 24 hr 09/13/21 04:54: WBC 15.5 H, RBC 4.32 L, Hgb 11.9 L, Hct 37.5 L, MCV 86.8, MCH 27.5, MCHC 31.7 L, RDW Std Deviation 40.1, RDW Coeff of Sheila 12.6, Plt Count 299, MPV 9.5, Immature Gran % (Auto) 1.000 H, Neut % (Auto) 78.0 H, Lymph % (Auto) 9.4 L, [place] % (Auto) 10.7 H, Eos % (Auto) 0.6, Baso % (Auto) 0.3, Absolute Neuts (auto) 12.1 H, Absolute Lymphs (auto) 1.46, Nucleated RBC % 0, Diff Path Review September09/13/21 04:54: Sodium 133 L, Potassium 3.8, Chloride 102, Carbon Dioxide 26.0, Anion Gap 5, BUN 13, Creatinine 1.10, Estim Creat Clear Calc 94.45, Est GFR (MDRD) Af Amer 91, Est GFR (MDRD) Non-Af 75, BUN/Creatinine Ratio 11.8, Glucose 106, Calcium 8.7 Assessment & Plan Assessment/Plan (1) Diverticular stricture: (2) Morbid obesity with BMI of 50.0-59.9, adult: PLAN: Patient is postoperative day 2 from sigmoid colectomy. The patient reports he tolerated clear liquid diet with no nausea or vomiting. He has been having bowel movements and I will advance him to a regular diet today. Plan for discharge later today. Billy Ozuna MD Pager: [facility] [address] [place] [address] [address] [place] [address] Office:
[2021-09-13] MEDS: hydroCHLOROthiazide 25 MG Tablet PO (09:15)
[2021-09-13] MEDS: Lisinopril 20 MG Tablet PO (09:15)
[2021-09-13] MEDS: Metoprolol(XL)Succ 50 MG Tablet PO (09:15)
[2021-09-13] MEDS: Pantoprazole Sodium 40 MG Tablet PO (09:15)
--- NOTE | 2021-09-13 11:14 | DS.PCM_ITS ---
Providers Date of Admission: 09/11/21 Primary Care Physician: Dr. Leidy Landa MD Reason For Visit: LAP SIGMOID COLECTOMY Diagnosis Discharge Diagnosis (1) Diverticular stricture: Status: Acute Code(s): K56.699 - Other intestinal obstruction unspecified as to partial versus complete obstruction (2) Morbid obesity with BMI of 50.0-59.9, adult: Status: Acute Code(s): E66.01 - Morbid (severe) obesity due to excess calories; Z68.43 - Body mass index [BMI] 50.0-59.9, adult Medications at Discharge Home Medications Lisinopril/Hydrochlorothiazide [Zestoretic 20/25 Tablet] 1 tab PO DAILY 12/17/14 Omeprazole [Prilosec] 40 mg PO DAILY 12/17/14 lovastatin 10 mg PO DAILY 12/17/14 metoprolol succinate [Toprol XL] 50 mg PO DAILY 12/01/16 ibuprofen 800 mg tablet 800 mg PO TID PRN 08/07/21 levothyroxine 75 mcg tablet 200 mcg PO DAILY tab 08/07/21 multivitamin 1 tab PO DAILY 08/07/21 oxycodone 10 mg PO Q4H PRN PRN 3 Days #12 tab 09/13/21 Weight / BMI Weight Weight: 402 lb 9.025 oz Body Mass Index (BMI) 51.7 ABG / Lab / Microbiology Data Result Diagrams: 09/13/21 04:54 09/13/21 04:54 Laboratory: Laboratory Results - last 24 hr 09/13/21 04:54: WBC 15.5 H, RBC 4.32 L, Hgb 11.9 L, Hct 37.5 L, MCV 86.8, MCH 27.5, MCHC 31.7 L, RDW Std Deviation 40.1, RDW Coeff of Sheila 12.6, Plt Count 299, MPV 9.5, Immature Gran % (Auto) 1.000 H, Neut % (Auto) 78.0 H, Lymph % (Auto) 9.4 L, [place] % (Auto) 10.7 H, Eos % (Auto) 0.6, Baso % (Auto) 0.3, Absolute Neuts (auto) 12.1 H, Absolute Lymphs (auto) 1.46, Nucleated RBC % 0, Diff Path Review September09/13/21 04:54: Sodium 133 L, Potassium 3.8, Chloride 102, Carbon Dioxide 26.0, Anion Gap 5, BUN 13, Creatinine 1.10, Estim Creat Clear Calc 94.45, Est GFR (MDRD) Af Amer 91, Est GFR (MDRD) Non-Af 75, BUN/Creatinine Ratio 11.8, Glucose 106, Calcium 8.7 Discharge Plan Admission Admit Date/Time: 09/11/21 05:49 Primary Reason for Your Visit: S/p sigmoid colectomy for diverticular stricture Attending Provider: Billy Ozuna Primary Care Provider: Leidy Landa Instructions Additional Instructions / Restrictions: You may alternate between Tylenol and Ibuprofen if narcotic pain medication is not needed. You may not drive while taking narcotic pain medication or for 5 days following discharge. I am recommending you continue on a low residue, low fiber diet for 2 weeks upon discharge. Recommend continuing to be up and walking at home to decrease risk of blood clots and pneumonia post-operatively. Please contact our office if any questions or concerns during your recovery process. Discharge Orders/Prescriptions Prescriptions: New oxycodone 5 mg Tablet 10 mg PO Q4H PRN PRN (Reason: Pain Score 6-10) 3 Days Qty: 12 RF: 0 Continued multivitamin Tablet 1 tab PO DAILY RF: 0 lovastatin 10 MG tablet 10 mg PO DAILY RF: 0 Lisinopril/Hydrochlorothiazide [Zestoretic 20/25 Tablet] 1 TABLET tablet 1 tab PO DAILY RF: 0 Omeprazole [Prilosec] 40 MG capsule 40 mg PO DAILY RF: 0 levothyroxine 75 mcg tablet 200 mcg PO DAILY RF: 0 metoprolol succinate [Toprol XL] 50 MG tablet extended release 24 hr 50 mg PO DAILY RF: 0 ibuprofen 800 mg tablet 800 mg PO TID PRN (Reason: Pain) RF: 0 Discontinued metronidazole 500 mg tablet 500 mg PO .COMPLEX RF: 0 metronidazole 500 mg tablet 500 mg PO TID RF: 0 ciprofloxacin HCl 500 mg tablet 500 mg PO BID RF: 0 Referrals / Follow Up: Leidy Landa MD [Primary Care Provider] - Disposition Disposition (needs filled in before D/C Order can be placed): Home, Self Care
--- NOTE | 2021-09-13 11:15 | PCM.DC ---
Discharge Instructions Diet Discharge Diet: - (Transitional diet- low residue, low fiber) Activity Discharge Activity: May Not Drive (while taking pain medication or 5 days after the procedure) and May Shower (tomorrow) Lifting Restrictions: 10 pounds until elevated in the office Dressing / Incision Call your doctor if your incision/area has: Continuous Slow Oozing, Sudden Increased Bleeding, Increased Pain/ Swelling, Increased Redness, Foul Smelling Discharge and Swelling at the incision site Suture Line Care: Avoid Pulling/Pushing and Avoid Pinching/Bending Remove Dressing in: 1 day Cleanse incision/area with: Soap & Water Additional Dressing/Incision Instructions:: Leave steri-strips in place for 1 week Follow Up Care Please Follow Up With: Billy Ozuna MD When: September 22 at 0900 AM. Please call [phone] if unable to make the appointment. Test Results: Test results from this visit will be discussed in further detail at your follow-up appointment, if applicable. Discharge Plan Admission Admit Date/Time: 09/11/21 05:49 Primary Reason for Your Visit: S/p sigmoid colectomy for diverticular stricture Attending Provider: Billy Ozuna Primary Care Provider: Leidy Landa Instructions Additional Instructions / Restrictions: You may alternate between Tylenol and Ibuprofen if narcotic pain medication is not needed. You may not drive while taking narcotic pain medication or for 5 days following discharge. I am recommending you continue on a low residue, low fiber diet for 2 weeks upon discharge. Recommend continuing to be up and walking at home to decrease risk of blood clots and pneumonia post-operatively. Please contact our office if any questions or concerns during your recovery process. Discharge Orders/Prescriptions Prescriptions: New oxycodone 5 mg Tablet 10 mg PO Q4H PRN PRN (Reason: Pain Score 6-10) 3 Days Qty: 12 RF: 0 Continued multivitamin Tablet 1 tab PO DAILY RF: 0 lovastatin 10 MG tablet 10 mg PO DAILY RF: 0 Lisinopril/Hydrochlorothiazide [Zestoretic 20/25 Tablet] 1 TABLET tablet 1 tab PO DAILY RF: 0 Omeprazole [Prilosec] 40 MG capsule 40 mg PO DAILY RF: 0 levothyroxine 75 mcg tablet 200 mcg PO DAILY RF: 0 metoprolol succinate [Toprol XL] 50 MG tablet extended release 24 hr 50 mg PO DAILY RF: 0 ibuprofen 800 mg tablet 800 mg PO TID PRN (Reason: Pain) RF: 0 Discontinued metronidazole 500 mg tablet 500 mg PO .COMPLEX RF: 0 metronidazole 500 mg tablet 500 mg PO TID RF: 0 ciprofloxacin HCl 500 mg tablet 500 mg PO BID RF: 0 Referrals / Follow Up: Leidy Landa MD [Primary Care Provider] - Disposition Disposition (needs filled in before D/C Order can be placed): Home, Self Care
[2021-09-13] MEDS: Enoxaparin 60 MG/0.6 ML Syringe 50 MG SC ×2 (11:34→21:56)
[2021-09-13 13:19] LABS: Pathologist Review Reviewed
[2021-09-13] MEDS: Atorvastatin Calcium 10 MG Tablet 5 MG PO (21:56)
[2021-09-13] MEDS: Acetaminophen 325 MG Tablet 650 MG PO (21:56)
[2021-09-14] VITALS (7 sets, daily range): BP systolic 101–133; BP diastolic 42–70; PULSE 69–109; RESP 16–18; TEMP 35.9–38.2; O2SAT 93–98
[2021-09-14] MEDS: oxyCODONE 5 MG Tablet 10 MG PO ×3 (06:16→19:18)
[2021-09-14] MEDS: Levothyroxine 100 MCG Tablet 200 MCG PO (06:16)
[2021-09-14 06:17] LABS: Absolute Lymphocyte Count 1.38 X10^3/uL (0.83-4.51); Absolute Neutrophil Count 11.8 X10^3/uL (2.0-7.7); Basophil# 0.05 X10^3/uL; Basophil% 0.3 % (0-1); Eosinophil# 0.18 X10^3/uL; Eosinophils% 1.2 % (0-5); Hematocrit 34.6 % (40-54); Hemoglobin 11.1 g/dL (13.0-16.5); Lymphocyte # 1.38 X10^3/ul (0.83-4.51); Lymphocyte % 9.2 % (19-41); Mean Corp Hgb Conc 32.1 g/dL (32-36); Mean Corpuscular Hgb 27.3 pg (27.0-32.0); Mean Corpuscular Volume 85.2 fL (80-94); Mean Platelet Vol. 9.5 fl (6.2-12.0); Monocyte# 1.45 X10^3/uL; Monocyte% 9.7 % (0-10); NRBC Flagged by Analyzer 0 % (0-5); Neutrophil # 11.75 X10^3/uL (2.7-7.7); Neutrophil % 78.5 % (47-70); Platelet Count 283 K/mm3 (150-450); RBC Distribution Width CV 12.8 % (11.6-14.6); RBC Distribution Width SD 40.1 fl (35.1-43.9); Red Blood Count 4.06 M/mm3 (4.6-6.2)
[2021-09-14 06:45] LABS: Anion Gap 6 (5-15); BUN 14 mg/dL (7-18); BUN/Creat Ratio 13.1 RATIO (10-20); Chloride 98 mmol/L (98-107); Creatinine, Serum 1.07 mg/dL (0.70-1.30); EST Glomerular Filtration Rate 78 mL/min (>60); Est Glom Filt Rate - Afr Amer 94 mL/min (>60); Glucose 111 mg/dL (74-106); Potassium 3.7 mmol/L (3.5-5.1); Sodium Level 133 mmol/L (136-145)
--- NOTE | 2021-09-14 08:21 | RAD_ITS ---
STUDY: X-RAY CHEST REASON FOR EXAM: Male, 50 years old. Cough TECHNIQUE: PA and lateral views of the chest. COMPARISON: None. FINDINGS: Small amount of free intraperitoneal air. The patient is status post colectomy. Elevation of the right hemidiaphragm. Mild increased markings at the lung bases suggestive of bibasilar atelectasis. There is no demonstrated pleural abnormality. Normal size heart. Normal mediastinum and tonie. Normal visualized pulmonary arteries. Normal visualized aortic arch and descending thoracic aorta. Normal visualized thoracic spine. Normal visualized ribs, clavicles, and shoulders. There is no demonstrated abnormality of the visualized soft tissue structures of the upper abdomen. RAD/Chest PA and Lateral IMPRESSION: Small amount of free intraperitoneal air. The patient is status post recent intraperitoneal surgical procedure. Findings suggestive of a mild degree of bibasilar atelectasis. Electronically Signed: Stephen Costa MD at 13:41 EDT ,
--- NOTE | 2021-09-14 08:22 | PN.SURG_ITS ---
Subjective Subjective Patient reports having flatus and bowel movements. No nausea or vomiting and he is tolerating a diet. Objective Data Objective Data Vital Signs: Vital Signs Temp Pulse Resp BP Pulse Ox 98.0 F 69 16 101/58 L 96 09/14/21 03:53 09/14/21 03:53 09/14/21 03:53 09/14/21 03:53 09/14/21 03:53 Oxygen Flow Rate (L/min) 2 Oxygen Delivery Method Room Air Weight: 402 lb 9.025 oz Body Mass Index (BMI) 51.7 Intake & Output: Intake and Output for Last 24 Hours 09/12/21 09/13/21 09/14/21 23:59 23:59 23:59 Intake Total 4006.25 / 4006.25 4145.83 / 4145.83 400 / 400 Output Total 875 / 2275 3550 / 4400 1350 / 1350 Balance 3131.25 / 1731.25 595.83 / -254.17 -950 / -950 Lab / Micro Data Result Diagrams: 09/14/21 05:45 09/14/21 05:45 Labs: Laboratory Results - last 24 hr 09/12/21 06:10: Diff Path Review Reviewed 09/14/21 05:45: WBC 15.0 H, RBC 4.06 L, Hgb 11.1 L, Hct 34.6 L, MCV 85.2, MCH 2 7.3, MCHC 32.1, RDW Std Deviation 40.1, RDW Coeff of Sheila 12.8, Plt Count 283, MPV 9.5, Immature Gran % (Auto) 1.100 H, Neut % (Auto) 78.5 H, Lymph % (Auto) 9.2 L, [place] % (Auto) 9.7, Eos % (Auto) 1.2, Baso % (Auto) 0.3, Absolute Neuts (auto) 11.8 H, Absolute Lymphs (auto) 1.38, Nucleated RBC % 0 09/14/21 05:45: Sodium 133 L, Potassium 3.7, Chloride 98, Carbon Dioxide 29.0, Anion Gap 6, BUN 14, Creatinine 1.07, Estim Creat Clear Calc 97.10, Est GFR (MDRD) Af Amer 94, Est GFR (MDRD) Non-Af 78, BUN/Creatinine Ratio 13.1, Glucose 111 H, Calcium 9.0 Physical Exam Const oriented x3 and no apparent distress Resp normal respiratory effort Cardio regular rate GI soft to palpation Assessment & Plan Assessment/Plan (1) Diverticulitis: PLAN: The patient had fever overnight of 101. Patient is not experiencing any abdominal symptoms. He is tolerating a diet and passing flatus. He has not reported any increased abdominal pain. I believe the patient's fever may be due to atelectasis or early pneumonia. I will order a chest x-ray. Billy Ozuna MD Pager: [facility] [address] [place] [address], [address] [place] [address] Office:
[2021-09-14] MEDS: Pantoprazole Sodium 40 MG Tablet PO (09:19)
[2021-09-14] MEDS: hydroCHLOROthiazide 25 MG Tablet PO (09:19)
[2021-09-14] MEDS: Enoxaparin 60 MG/0.6 ML Syringe 50 MG SC (09:19)
[2021-09-14] MEDS: Lisinopril 20 MG Tablet PO (09:19)
[2021-09-14] MEDS: Metoprolol(XL)Succ 50 MG Tablet PO (09:22)
--- NOTE | 2021-09-14 10:10 | CT_ITS ---
STUDY: CT ABDOMEN AND PELVIS WITH CONTRAST REASON FOR EXAM: Male, 50 years old. Tachycardia, fever -- PO and IV contrast, wet read to Laith. Patient is status post recent sigmoid colectomy and anastomosis. RADIATION DOSAGE (If Supplied By Facility): CTDIvol = ( 26.16 ) mGy, DLP = ( 3086.93 ) mGycm TECHNIQUE: Transaxial images were obtained from the dome of the diaphragm to the symphysis pubis with oral contrast. Oral and amp; IV Gastrografin and amp; 100mL Isovue-370 was administered. Sagittal and coronal images were reconstructed. Individualized dose optimization techniques were used for this CT. COMPARISON: Comparison is made with prior examination dated 09/14/2021. FINDINGS: The visualized lung bases are unremarkable. The visualized portions of the heart are within normal limits. There is evidence of free intraperitoneal as well as retroperitoneal air most prominent on the right side of the abdomen and pelvis. The patient is status post recent sigmoid colectomy and primary anastomosis. Normal liver. Normal gallbladder and extrahepatic biliary system. There are multiple benign calcified granulomata of the spleen. Normal pancreas. There is a small, circumscribed, smooth, low attenuation right adrenal mass, consistent with an adrenal adenoma. This measures 3.3 cm. Normal left adrenal gland. Normal right kidney. Normal left kidney. Normal visualized stomach. Normal small intestine. The patient is status post sigmoid colectomy and primary anastomosis. The anastomotic suture line is visualized. There is thickening of the wall of the sigmoid colon just proximal to the anastomotic site. Postoperative changes are seen within the pelvic fat and can with postsurgical changes. Air is seen surrounding the operative site as well as within the pelvis surrounding the urinary bladder. The surgery was performed both laparoscopically and open. The free intraperitoneal and retroperitoneal air may be normal for the recent surgery. No evidence of the fluid collection or abscess collection at this time. Follow-up CT scan recommended for further assessment. The appendix is visualized and appears normal. Normal abdominal aorta. Normal inferior vena cava. Normal retroperitoneum. Normal urinary bladder. Normal abdominal wall. Normal osseous structures. CT/Abdomen/Pelvis WITH Contrast IMPRESSION: Status post sigmoid colectomy and primary anastomosis with small amount of free intraperitoneal and predominantly right retroperitoneal air. This most likely is normal for the postoperative course. Follow-up is recommended. There is no evidence of a fluid collection or abscess collection at this time Electronically Signed: Stephen Costa MD at 12:40 EDT ,
[2021-09-14 10:31] LABS: Pathologist Review Reviewed
--- NOTE | 2021-09-14 12:00 | CT_ITS ---
STUDY: CTA CHEST REASON FOR EXAM: Male, 50 years old. FEVER, POST OP. RADIATION DOSAGE (If Supplied By Facility): CTDIvol = ( 26.16 ) mGy, DLP = ( 3086.93 ) mGycm TECHNIQUE: The examination was performed with the intravenous administration of Oral and amp; IV Gastrografin and amp; 100mL Isovue-370. Post-processing of the angiographic images was performed, with multiplanar reformation and 3D reconstruction. Slightly limited evaluation due to suboptimal opacification. Individualized dose optimization techniques were used for this CT. COMPARISON: None. FINDINGS: Intraluminal filling defects are seen in branches of the right and left lower lobe pulmonary arteries. This is in keeping with bilateral pulmonary emboli. Smaller intraluminal filling defects are also seen in branches of the upper lobe pulmonary arteries. Normal thoracic aorta and visualized great vessels. There is no demonstrated aortic dissection. Normal heart and pericardium. Calcified lymph nodes in the aortopulmonary region. Normal hilar regions. Normal visualized trachea and bronchi. There is elevation of the right hemidiaphragm. Mild degree of increased markings at the right lung base in keeping with atelectasis. Normal pleura. Normal chest wall structures. Normal osseous structures. Free intraperitoneal air is noted as fully described on the CT scan of the abdomen and pelvis. Stable 3.2 cm fat-containing nodule in the right adrenal gland. CT/CTA Chest W/WO Contrast IMPRESSION: Bilateral pulmonary emboli more prominent in the lower lobes. Findings suggestive of atelectasis at the right lung base. The results were communicated to the referring physician. Electronically Signed: Stephen Costa MD at 12:47 EDT ,
--- NOTE | 2021-09-14 12:37 | PCM.PN.BLA ---
Progress Note I reviewed the CT scan. There was some air but no obvious abscess or leak near the anastomosis. Patient does not appear clinically sick. He does not appear toxic or ill. He tolerated diet and has having bowel movements. No nausea or vomiting. His only abdominal pain is at his incision. He is currently not having any fevers and he reports being fairly comfortable. I will start the patient on Zosyn in case there is some sort of infectious process and repeat a CT tomorrow for follow-up. If there is any increase in the volume of free air then he may have to return to surgery. Billy Ozuna MD Pager: [facility] [address] [place] [address], [address] [place] [address] Office:
--- NOTE | 2021-09-14 13:08 | CON.PCM.HO_ITS ---
Assessment & Plan Assessment/Plan (1) Diverticular stricture: PLAN: 1. Recurrent diverticulitis with history of diverticulitis stricture with postop complication fever and PE: Patient had elective laparoscopic sigmoid colectomy. Patient recovering well from surgery but had postop complication of PE. Continue incentive spirometry. Rest as per surgical recommendation 2. Intermittent fever with leukocytosis, neutrophilic leukocytosis: Exact etiology unclear. Patient does not have cough, chest pain, new shortness of breath, no burning micturition or new urinary tract symptoms including increased frequency or urgency or suprapubic pain. Patient had CT abdomen and CTA chest which did not show focus of infection. CT chest shows right lung base atelectasis and elevation of right hemidiaphragm. No clear consolidation to account for pneumonia. Blood cultures x2 ordered. UA with urine culture ordered. Continue IV Zosyn until infectious work-up is negative. Pulmonary embolism might cause reactive/inflammatory fever. 3. Right and left lower lobe pulmonary artery embolism: CTA chest shows right and left lower lobe pulmonary artery embolism. No signs of right ventricular strain. BNP and troponin is negative. Twelve-lead EKG shows normal sinus rhythm at 91 beats per. No sinus tachycardia or S1Q3T3 sign. 2D echo ordered. Started on IV heparin drip without bolus as patient had Lovenox 50 mg subcu dose in the morning. Watch for any bleeding. If no bleeding for 24 hours, it can be transition to apixaban 10 mg twice daily for 1 week and then 5 mg twice daily to continue at least for 6 months. PE seems more provoked because as postoperative likely source from intra-abdominal/intrapelvic veins or lower extremities. Venous duplex not required as does not change plan of management. 4. Other chronic comorbidities include hypertension, dyslipidemia, GERD, degenerative joint disease with back pain/lumbar spondylosis: Home medications reconciled. 5. Morbid obesity: BMI 51.7 kg per metered square. Patient denies history of obstructive sleep apnea or CPAP use. Needs to be evaluated for VICTORINO as an outpatient. Weight loss counseling done HPI Consult Data Date of Consult: 09/14/21 HPI Narrative Reason for Consultation: Bilateral PE. Had laparoscopic colectomy on HPI Narrative: ANAYELI RUIZ, is a 50 M who who is being admitted for elective laparoscopic sigmoid colectomy for recurrent sigmoid diverticulitis complicated with severe diverticular stricture. Patient had colonoscopy in past and found to have inflammatory polyps. No malignancy identified. Patient had laparoscopic sigmoid colectomy with takedown of splenic flexure. Patient had flatus and bowel movement. No nausea no vomiting and tolerating diet. Patient had fever, T-max 101.1 Fahrenheit overnight. Denies chest pain or shortness of breath at rest. Patient is morbidly obese. To investigate the cause of fever, patient had CT abdomen and CTA chest. CT abdomen shows air under diaphragm but no obvious abscess leak near the anastomosis. Patient has just mild abdominal pain near the incision site. After patient was empirically started on IV Zosyn. CTA chest was done which shows bilateral PE predominantly in lower lobes. CT abdomen and CTA chest individually reviewed. It also shows left lower atelectasis. Patient on Lovenox 50 subcu every 12 hourly for DVT prophylaxis as patient is morbidly obese with BMI 51.7 kg/m? which is appropriate DVT prophylaxis but is still he developed PE. Patient is mildly tachycardic, heart rate 106/min. Blood pressure normal. No hypoxia or tachypnea. BNP, troponin normal. Serum magnesium 2.0. Phosphorus 3.6. Mild hyponatremia. Patient also has significant leukocytosis 19,000, predominantly neutrophilic leukocytosis trending down Patient does not have prior history of DVT/PE. No family history of first- degree DVT/PE or hypercoagulable disorder. [facility] Medical History (Updated 09/13/21 @ 07:[address] Billy Ozuna MD) Arthritis Back pain Chronic cough Complex tear of medial meniscus of right knee as current injury Diverticulitis Gastric reflux High cholesterol Hypertension Non-smoker Sprain of unspecified site of right knee, initial encounter Thyroid disease Home Medications Lisinopril/Hydrochlorothiazide [Zestoretic 20/25 Tablet] 1 tab PO DAILY 12/17/14 [History Last Taken 09/10/21] Omeprazole [Prilosec] 40 mg PO DAILY 12/17/14 [History Last Taken 09/11/21] lovastatin 10 mg PO DAILY 12/17/14 [History Last Taken 09/10/21] metoprolol succinate [Toprol XL] 50 mg PO DAILY 12/01/16 [History Last Taken 09/11/21] ibuprofen 800 mg tablet 800 mg PO TID PRN 08/07/21 [History Last Taken Unknown] levothyroxine 75 mcg tablet 200 mcg PO DAILY tab 08/07/21 [History Last Taken 09/11/21] multivitamin 1 tab PO DAILY 08/07/21 [History Last Taken Unknown] oxycodone 10 mg PO Q4H PRN PRN 3 Days #12 tab 09/13/21 [Rx Last Taken Unknown] Allergy/AdvReac Type Severity Reaction Status Date / Time No Known Allergies Allergy Verified 09/11/21 06:21 Family History Father Diabetes Hypertension Surgical History H/O arthroscopy of right knee History of colonoscopy (~08/2021) History of eye surgery History of throat surgery Social History Smoking Status: Never smoker alcohol intake: never substance use type: does not use ROS ROS Narrative Constitutional: Intermittent fever admission HPI. Morbid obese HEENT: Reports systems reviewed and no addt'l complaints, except as documented Respiratory/Chest: Denies chest pain, shortness of breath at rest. Gastrointestinal: Denies coffee ground emesis, hematemesis or vomiting. Mild expected abdominal pain on left side after surgery Genitourinary: Denies burning urination or new urinary tract symptoms Musculoskeletal: Denies joint pain and limited range of motion Neurologic: Denies seizure-like activity skin: Large pedunculus fat over lower extremity, abdomen and pelvis. Endocrinology: Reports systems reviewed and no addt'l complaints, except as documented Hematologic/Lymphatic: New diagnosis PE. Never had any history of DVT in the past. Reports systems reviewed and no addt'l complaints, except as documented Rest 14 ROS are negative except as mentioned in HPI Physical Exam Narrative General: Alert, Oriented x3, Cooperative, morbid obesity BMI 51.7 kg/m?. HEENT: Atraumatic, PERRLA, EOMI, Normocephalic Oral: No Gingival or Mucosal Lesions/ Ulcerations Neck: Supple, No JVD, Negative Carotid Bruits Lungs: Air entry diminished in bilateral lung bases. No crepitation/rhonchi Cardiovascular: Regular rate, Regular Rhythm, Normal S1, Normal S2, No murmurs Abdomen: Bowel Sounds sluggish, Soft, Non Tender, Non-Distended. Laparoscopic port dressings are dry : No renal angle tenderness. No suprapubic tenderness. Extremities: Bilateral lower extremity lymphedema, large panniculi over the thigh and pelvis area., Capillary Refill Less than 3 Seconds Skin: No rashes, No breakdown Musculoskeletal: No Tenderness to Palpation of Joints or Extremities Neurological: Cranial nerves II-XII grossly intact, DTR 2+/4 and Symmetrical, Neuro grossly intact Psych/Mental Status: Normal Affect, Appropriate Lab / Micro Data Result Diagrams: 09/14/21 05:45 09/14/21 05:45 Labs: Laboratory Results - last 24 hr 09/12/21 06:10: Diff Path Review Reviewed 09/13/21 04:54: Diff Path Review Reviewed 09/14/21 05:45: WBC 15.0 H, RBC 4.06 L, Hgb 11.1 L, Hct 34.6 L, MCV 85.2, MCH 27.3, MCHC 32.1, RDW Std Deviation 40.1, RDW Coeff of Sheila 12.8, Plt Count 283, MPV 9.5, Immature Gran % (Auto) 1.100 H, Neut % (Auto) 78.5 H, Lymph % (Auto) 9.2 L, [place] % (Auto) 9.7, Eos % (Auto) 1.2, Baso % (Auto) 0.3, Absolute Neuts (auto) 11.8 H, Absolute Lymphs (auto) 1.38, Nucleated RBC % 0 09/14/21 05:45: Sodium 133 L, Potassium 3.7, Chloride 98, Carbon Dioxide 29.0, Anion Gap 6, BUN 14, Creatinine 1.07, Estim Creat Clear Calc 97.10, Est GFR (MDRD) Af Amer 94, Est GFR (MDRD) Non-Af 78, BUN/Creatinine Ratio 13.1, Glucose 111 H, Calcium 9.0 Radiology Impression Abdomen/Pelvis CT 09/14/21 10:10 IMPRESSION: Status post sigmoid colectomy and primary anastomosis with small amount of free intraperitoneal and predominantly right retroperitoneal air. This most likely is normal for the postoperative course. Follow-up is recommended. There is no evidence of a fluid collection or abscess collection at this time Chest CTA 09/14/21 12:00 IMPRESSION: Bilateral pulmonary emboli more prominent in the lower lobes. Findings suggestive of atelectasis at the right lung base. The results were communicated to the referring physician. Charges/Coding Visit Charges Office Visits / Consults: 25417 IP Consult L4
--- NOTE | 2021-09-14 13:14 | ECHOD_ITS ---
Reason For Study: B/L PULM ART EMBOLI S/P COLECTOMY Procedure This was a 2D Doppler, Color Flow transthoracic echocardiogram. The study was technically difficult. Exam performed portable in patient room. Left Ventricle Normal LV size. The estimated ejection fraction is 55 %. No evidence for diastolic dysfunction. No regional wall motion abnormalities noted. Right Ventricle Normal RV size. Normal systolic function. Atria Normal left atrium. Normal right atrium. No doppler evidence for ASD. Mitral Valve There is no mitral valve stenosis. No mitral valve insufficiency. Tricuspid Valve There is no tricuspid stenosis. Unable to estimate RV systolic pressure due to inadequate jet, pulmonary artery pressure probably normal. Aortic Valve Trisinus/trileaflet aortic valve. There is no aortic stenosis. No aortic valve insufficiency. Pulmonic Valve There is no pulmonic valvular stenosis. No pulmonic valve insufficiency. Great Vessels Normal aortic root. Pericardium/Pleural No pericardial effusion. MMode/2D Measurements & Calculations LVIDd: 4.8 cm IVSd: 1.1 cm Ao root diam: 3.3 cm LVIDs: 3.0 cm LVPWd: 1.1 cm RVDd: 3.7 cm FS: 36.4 % LAV(MOD-bp): 31.3 ml LVAd ap4: 33.1 cm2 SV(MOD-sp4): 72.6 ml LAV(MOD-bp) Indexed: 10.7 ml/m2 LVLd ap4: 8.4 cm LAV(MOD-sp2): 31.9 ml EDV(MOD-sp4): 110.6 ml LAV(MOD-sp4): 26.7 ml EDV(sp4-el): 110.4 ml LVAs ap4: 17.4 cm2 LVLs ap4: 6.9 cm ESV(MOD-sp4): 38.1 ml ESV(sp4-el): 37.4 ml EF(MOD-sp4): 65.6 % EF(sp4-el): 66.1 % SV(sp4-el): 73.0 ml LA A4 area: 12.3 cm2 LA dimension(2D): 3.6 cm RA A4 area: 13.0 cm2 Time Measurements MV dec time: 0.19 sec Doppler Measurements & Calculations MV E max steve: 104.0 cm/sec Lat Peak E' Steve: 18.9 cm/sec Med Peak E' Steve: 10.0 cm/sec MV A max steve: 87.4 cm/sec E/E' lat: 5.5 E/E' med: 10.4 MV E/A: 1.2 Ao V2 max: 188.0 cm/sec LV V1 max: 143.4 cm/sec PA V2 max: 123.7 cm/sec Ao max P.1 mmHg LV V1 max P.2 mmHg TR max steve: 294.7 cm/sec TR max P.7 mmHg ECHO/Echo Complete Interpretation Summary The estimated ejection fraction is 55 %. No evidence for diastolic dysfunction. Ordering Physician: Pepe Schulz Referring Physician: Billy Ozuna Performed By: Vida Hinkle RDCS
[2021-09-14 14:00] LABS: BNP,B-Type NATRIURETIC PEPTIDE 19.6 pg/mL (0-100); Phosphorus 3.6 mg/dL (2.5-4.9)
--- NOTE | 2021-09-14 14:08 | EKG12_ITS ---
Test Reason : TACHYCARIA Blood Pressure : / mmHG Vent. Rate : 091 BPM Atrial Rate : 091 BPM P-R Int : 142 ms QRS Dur : 098 ms QT Int : 352 ms P-R-T Axes : 050 007 066 degrees QTc Int : 432 ms Normal sinus rhythm Normal ECG When compared with ECG of 06-SEP-2021 16:18, No significant change was found Confirmed by NÉSTOR RAMOS, MALA ([id number]), editor & co founder DANGELO ALONZO ([id number]) on 09/18/2021 1:58:01 PM Referred By: Billy Ozuna Confirmed By:MALA PALM MD
[2021-09-14 14:27] LABS: Troponin-I HS 14 pg/mL (3.0-78.0)
[2021-09-14 14:37] LABS: International Normalized Ratio 1.2
[2021-09-14 14:38] LABS: Partial Thromboplast Time 33.3 Seconds (24.1-36.2)
--- NOTE | 2021-09-14 16:08 | NURSING ---
Verified with Kymberly RUSS. Unable to scan medication in room pharmacy was making adjustments to medication in computer.
[2021-09-14 17:19] LABS: Bacteria 0 SEEN /hpf (None Seen); Mucous, Urine 0 SEEN /hpf (<or=2+); Red Blood Cells-Urine 0 SEEN /hpf (0-5); Squamous Epithelial Cells - UA 0 SEEN /hpf (0-5); White Blood Cells 0 SEEN /hpf (0-5)
[2021-09-14 17:23] LABS: Color, Urine Yellow (Yellow); Glucose, Dipstick Normal (Normal); Ketone-Dipstick Negative (Negative); Leukocyte Esterase-Dipstick Negative /ul (Negative); Nitrite-Dipstick Negative (Negative); Occult Blood-Urine 10 /ul (Negative); Protein-Dipstick 30 mg/dl (Negative); Urine Bilirubin Dipstick Negative (Negative); Urine Clarity Clear (Clear); Urine Urobilinogen Normal (Normal)
[2021-09-14] MEDS: Atorvastatin Calcium 10 MG Tablet 5 MG PO (21:49)
[2021-09-14 22:45] LABS: Partial Thromboplast Time 33.7 Seconds (24.1-36.2)
--- NOTE | 2021-09-14 23:01 | NURSING ---
Addendum entered by Raji Carrasco 09/14/21 23:15: Verified all Titration changes with Angelique Alvarado RN. Original Note: Pt's APTT came back at 33.7. Following the titration protocol I increased the pt's heparin drip by 2ml/hr to 12ml/hr and administered a 1000 unit bolus. I will schedule another APTT blood draw for 6 hr's after change.
[2021-09-14] MEDS: Heparin Injection (Vial) 5,000 UNIT/ML VIAL IV (23:09)
[2021-09-15 02:55] VITALS: BP 150/61; PULSE 83; RESP 18; TEMP 36.9; O2SAT 95
[2021-09-15] MEDS: oxyCODONE 5 MG Tablet 10 MG PO ×4 (04:17→21:21)
[2021-09-15] MEDS: Levothyroxine 100 MCG Tablet 200 MCG PO (05:40)
[2021-09-15] MEDS: 0.9% Saline Lock 10 ML Syringe IV (05:40)
[2021-09-15 06:05] LABS: Absolute Lymphocyte Count 1.32 X10^3/uL (0.83-4.51); Absolute Neutrophil Count 11.3 X10^3/uL (2.0-7.7); Basophil# 0.06 X10^3/uL; Basophil% 0.4 % (0-1); Eosinophil# 0.23 X10^3/uL; Eosinophils% 1.6 % (0-5); Hematocrit 36.1 % (40-54); Hemoglobin 11.7 g/dL (13.0-16.5); Lymphocyte # 1.32 X10^3/ul (0.83-4.51); Mean Corp Hgb Conc 32.4 g/dL (32-36); Mean Corpuscular Hgb 27.5 pg (27.0-32.0); Mean Corpuscular Volume 84.7 fL (80-94); Mean Platelet Vol. 9.2 fl (6.2-12.0); Monocyte# 1.46 X10^3/uL; NRBC Flagged by Analyzer 0 % (0-5); Neutrophil # 11.29 X10^3/uL (2.7-7.7); Neutrophil % 77.3 % (47-70); Platelet Count 341 K/mm3 (150-450); RBC Distribution Width CV 12.6 % (11.6-14.6); RBC Distribution Width SD 38.5 fl (35.1-43.9); Red Blood Count 4.26 M/mm3 (4.6-6.2); White Blood Count 14.6 K/mm3 (4.4-11.0)
[2021-09-15 06:17] LABS: Partial Thromboplast Time 31.1 Seconds (24.1-36.2)
[2021-09-15] MEDS: Heparin Injection (Vial) 5,000 UNIT/ML VIAL IV ×3 (06:28→21:20)
--- NOTE | 2021-09-15 06:31 | NURSING ---
Pt's APTT came back at 31.1. Following the Heparin IV Titration protocol I bolused the pt with 1000 units of heparin and increased the heparin drip 2ML /hr so it is now running at 14ML / hr. I verified all heparin titrations with JEB Tavera.
[2021-09-15 06:33] LABS: Anion Gap 8 (5-15); BUN 12 mg/dL (7-18); BUN/Creat Ratio 10.6 RATIO (10-20); Calcium,Total 8.8 mg/dL (8.5-10.1); Chloride 93 mmol/L (98-107); Creatinine, Serum 1.13 mg/dL (0.70-1.30); EST Glomerular Filtration Rate 73 mL/min (>60); Est Glom Filt Rate - Afr Amer 88 mL/min (>60); Estimated Creatinine Clearance 91.94 ml/min; Glucose 119 mg/dL (74-106); Potassium 3.5 mmol/L (3.5-5.1); Sodium Level 131 mmol/L (136-145)
--- NOTE | 2021-09-15 06:42 | CT_ITS ---
STUDY: CT ABDOMEN AND PELVIS WITHOUT CONTRAST REASON FOR EXAM: Male, 50 years old. Follow up free air RADIATION DOSAGE (If Supplied By Facility): CTDIvol = ( 34.45 ) mGy, DLP = ( 2540.67 ) mGycm TECHNIQUE: Transaxial images were obtained from the dome of the diaphragm to the symphysis pubis without oral contrast, and without intravenous contrast. Sagittal and coronal images were reconstructed. Individualized dose optimization techniques were used for this CT. COMPARISON: September 14, 2021 11:58 AM with contrast. FINDINGS: There is persistent pneumoperitoneum. The base of the lungs are clear. The visualized portions of the heart are within normal limits. Normal liver. Normal gallbladder and extrahepatic biliary system. There are multiple benign calcified granulomata of the spleen. Normal pancreas. There is a visualized right adrenal mass measuring 2.3 x 3.3 cm stable since the prior study September 14, 2021, and larger than the remote prior study December 01, 2016. Now measures 2.9 x 3.1 cm on a prior study it measured 2.2 x 1.4 cm. Hounsfield units are in the range of low or simple fluid suggesting an adenoma with interval enlargement over time. There is minimal thickening of the left adrenal gland similar to the prior study. There is gas surrounding the periphery of the perinephric fat. There is also gas tracking within the right renal pelvis. There is a focus of peripheral enhancement or hyperdensity within the left kidney measuring 1.2 cm. This is not as apparent as on prior study and may represent residual parenchymal contrast. Normal visualized stomach. Normal small intestine. There is inflammatory change within the descending colon. There is diverticulosis. There is postoperative change within the proximal sigmoid colon. There is surrounding inflammatory change. To the right of the anastomosis there is a focus of gas which may be tracking in the retroperitoneum which cause the effect of the gas around the right-sided perinephric space and adjacent to the aorta. There is also gas in the extra peritoneal soft tissues of the pelvis. The appendix is visualized and appears normal. Normal abdominal aorta. Normal inferior vena cava. There is pneumoretroperitoneum. Normal urinary bladder. Prostate is diminutive. There is body wall edema. There is a visualized left of midline focus of gas midline focus of gas which may represent recent procedures. There are diffuse degenerative changes of the visualized lumbar spine. CT/Abdomen/Pelvis without Cont IMPRESSION: Persistent extensive pneumo peritoneum and retroperitoneum. There is visualized inflammatory change in the descending colon wall thickening and stranding suspicious for colitis and/or diverticulitis. Given the amount of gas cannot exclude a anastomotic leak. Postoperative change. Findings are suggestive of a right adrenal adenoma although larger than prior study. Could consider short-term interval follow-up study which could include possible MRI if appropriate. Postoperative ileus. Diminutive appearance of the prostate which may been surgically removed. Electronically Signed: Kat Logan MD at 7:42 EDT ,
[2021-09-15 09:00] VITALS: BP 127/50; PULSE 91; RESP 18; TEMP 37.1; O2SAT 93
--- NOTE | 2021-09-15 09:43 | PCM.PN.HOSP ---
Subjective Subjective Doing well, no issues overnight. He has had intermittent fevers which can be explained by both his postoperative nature as well as blood clots he denies any significant increase in abdominal pain. Last fever was yesterday afternoon at 3:00 Objective Data Objective Data Vital Signs: Vital Signs Temp Pulse Resp BP Pulse Ox 98.4 F 83 18 150/61 H 95 09/15/21 02:55 09/15/21 02:55 09/15/21 02:55 09/15/21 02:55 09/15/21 02:55 Oxygen Flow Rate (L/min) 2 Oxygen Delivery Method Room Air Weight: 402 lb 9.025 oz Body Mass Index (BMI) 51.7 Intake & Output: Intake and Output for Last 24 Hours 09/14/21 09/15/21 09/16/21 03:59 03:59 03:59 Intake Total 4145.83 / 4145.83 1781.88 / 1781.88 500 / 500 Output Total 3000 / 3000 1000 / 1000 500 / 500 Balance 1145.83 / 1145.83 781.88 / 781.88 0 / 0 Lab / Micro Data Result Diagrams: 09/15/21 05:57 09/15/21 05:57 Labs: Laboratory Results - last 24 hr 09/13/21 04:54: Diff Path Review Reviewed 09/14/21 05:45: B-Natriuretic Peptide 19.6 09/14/21 05:45: Phosphorus 3.6 09/14/21 13:47: Magnesium 2.0, Troponin I High Sens 14 09/14/21 14:20: PT 15.0 H, INR 1.2, APTT 33.3 09/14/21 16:59: Urine Color Yellow, Urine Clarity Clear, Urine pH 6.0, Ur Specific Pyote 1.010, Urine Protein 30 H, Urine Glucose (UA) Normal, Urine Ketones Negative, Urine Occult Blood 10 H, Urine Nitrite Negative, Urine Bilirubin Negative, Urine Urobilinogen Normal, Ur Leukocyte Esterase Negative, Urine RBC 0 SEEN, Urine WBC 0 SEEN, Ur Squamous Epith Cells 0 SEEN, Urine Bacteria 0 SEEN, Urine Mucus 0 SEEN 09/14/21 22:00: APTT 33.7 09/15/21 05:57: WBC 14.6 H, RBC 4.26 L, Hgb 11.7 L, Hct 36.1 L, MCV 84.7, MCH 27.5, MCHC 32.4, RDW Std Deviation 38.5, RDW Coeff of Sheila 12.6, Plt Count 341, MPV 9.2, Immature Gran % (Auto) 1.700 H, Neut % (Auto) 77.3 H, Lymph % (Auto) 9.0 L, [place] % (Auto) 10.0, Eos % (Auto) 1.6, Baso % (Auto) 0.4, Absolute Neuts (auto) 11.3 H, Absolute Lymphs (auto) 1.32, Nucleated RBC % 0 09/15/21 05:57: Sodium 131 L, Potassium 3.5, Chloride 93 L, Carbon Dioxide 30.0, Anion Gap 8, BUN 12, Creatinine 1.13, Estim Creat Clear Calc 91.94, Est GFR (MDRD) Af Amer 88, Est GFR (MDRD) Non-Af 73, BUN/Creatinine Ratio 10.6, Glucose 119 H, Calcium 8.8 09/15/21 05:57: APTT 31.1 Radiography Diagnostic Testing: Radiology Impression Chest X-Ray 09/14/21 08:21 IMPRESSION: Small amount of free intraperitoneal air. The patient is status post recent intraperitoneal surgical procedure. Findings suggestive of a mild degree of bibasilar atelectasis. Electronically Signed: Stephen Costa MD at 13:41 EDT , Abdomen/Pelvis CT 09/14/21 10:10 IMPRESSION: Status post sigmoid colectomy and primary anastomosis with small amount of free intraperitoneal and predominantly right retroperitoneal air. This most likely is normal for the postoperative course. Follow-up is recommended. There is no evidence of a fluid collection or abscess collection at this time Electronically Signed: Stephen Costa MD at 12:40 EDT , Chest CTA 09/14/21 12:00 IMPRESSION: Bilateral pulmonary emboli more prominent in the lower lobes. Findings suggestive of atelectasis at the right lung base. The results were communicated to the referring physician. Electronically Signed: Stephen Costa MD at 12:47 EDT , Abdomen/Pelvis CT 09/15/21 06:42 IMPRESSION: Persistent extensive pneumo peritoneum and retroperitoneum. There is visualized inflammatory change in the descending colon wall thickening and stranding suspicious for colitis and/or diverticulitis. Given the amount of gas cannot exclude a anastomotic leak. Postoperative change. Findings are suggestive of a right adrenal adenoma although larger than prior study. Could consider short-term interval follow-up study which could include possible MRI if appropriate. Postoperative ileus. Diminutive appearance of the prostate which may been surgically removed. Electronically Signed: Kat Logan MD at 7:42 EDT , Physical Exam Const alert, oriented x3 and no apparent distress General Appearance: cooperative Nutritional Appearance: morbidly obese HEENT normocephalic and moist oral mucous membranes Eyes PERRL, EOMs intact bilaterally and conjunctivae normal Neck supple and no JVD Resp normal respiratory effort, no retractions, no use of accessory muscles and clear to auscultation bilaterally Auscultation: Negative for crackles, rales, rhonchi or wheezes Cardio regular rate, regular rhythm, S1 normal heart sound, S2 normal heart sound and no murmurs GI soft to palpation and non-distended; Negative for hepatosplenomegaly Palpation: tender Extremity no clubbing, cyanosis or edema Skin no rashes or lesions noted Neuro no focal motor deficits and no sensory deficits noted Psych affect normal Appearance: appropriate Assessment & Plan Assessment/Plan (1) Diverticular stricture: PLAN: 1. Recurrent diverticulitis with history of diverticulitis stricture with postop complication fever and PE: Patient had elective laparoscopic sigmoid colectomy. Patient recovering well from surgery but had postop complication of PE. Continue incentive spirometry. Rest as per surgical recommendation 09/15/2021: Repeat CT scan continues to show extensive pneumoperitoneum which is consistent with postoperative issues he is not having increasing amounts of pain therefore an anastomotic leak is unlikely. We will keep him on a heparin drip until surgery is comfortable for him to be discharged home as it is easier to reverse the heparin drip if further surgical intervention is necessary 2. Intermittent fever with leukocytosis, neutrophilic leukocytosis: Exact etiology unclear. Patient does not have cough, chest pain, new shortness of breath, no burning micturition or new urinary tract symptoms including increased frequency or urgency or suprapubic pain. Patient had CT abdomen and CTA chest which did not show focus of infection. CT chest shows right lung base atelectasis and elevation of right hemidiaphragm. No clear consolidation to account for pneumonia. Blood cultures x2 ordered. UA with urine culture ordered. Continue IV Zosyn until infectious work-up is negative. Pulmonary embolism might cause reactive/inflammatory fever. 3. Right and left lower lobe pulmonary artery embolism: CTA chest shows right and left lower lobe pulmonary artery embolism. No signs of right ventricular strain. BNP and troponin is negative. Twelve-lead EKG shows normal sinus rhythm at 91 beats per. No sinus tachycardia or S1Q3T3 sign. 2D echo ordered. Started on IV heparin drip without bolus as patient had Lovenox 50 mg subcu dose in the morning. Watch for any bleeding. If no bleeding for 24 hours, it can be transition to apixaban 10 mg twice daily for 1 week and then 5 mg twice daily to continue at least for 6 months. PE seems more provoked because as postoperative likely source from intra-abdominal/intrapelvic veins or lower extremities. Venous duplex not required as does not change plan of management. 09/15/2021: I will prescribe Eliquis and then run a benefits check. I would recommend that the heparin drip stay in place until the day of discharge at which point I would give him 10 mg of Eliquis prior to discharge. This is likely due to being a provoked PE from being sedentary prior to surgery and then having surgery. I would anticipate anticoagulation for 3 to 6 months post discharge and I recommend that he follow-up with his PCP for management. 4. Other chronic comorbidities include hypertension, dyslipidemia, GERD, degenerative joint disease with back pain/lumbar spondylosis: Home medications reconciled. 5. Morbid obesity: BMI 51.7 kg per metered square. Patient denies history of obstructive sleep apnea or CPAP use. Needs to be evaluated for VICTORINO as an outpatient. Weight loss counseling done Will continue to follow peripherally DVT: Heparin Charges/Coding Visit Charges Inpatient E&M: 50154 Subs Hosp L2
[2021-09-15 10:07] VITALS: PULSE 92
[2021-09-15] MEDS: Pantoprazole Sodium 40 MG Tablet PO (10:07)
[2021-09-15] MEDS: Metoprolol(XL)Succ 50 MG Tablet PO (10:07)
[2021-09-15] MEDS: Lisinopril 10 MG Tablet PO (10:07)
--- NOTE | 2021-09-15 10:45 | CASEMGMT ---
Addendum entered by Susan Paul 09/15/21 11:20: JEB CM in to pt room to make aware of eliquis. Pt denies any homegoing needs and is ready for dc. Original Note: TC to [facility] Retail pharmacy to check cost of eliquis, no charge to pt.
[2021-09-15 13:15] LABS: Partial Thromboplast Time 29.9 Seconds (24.1-36.2)
[2021-09-15 16:55] VITALS: BP 134/55; PULSE 82; RESP 18; TEMP 37.7; O2SAT 98
[2021-09-15 20:53] VITALS: BP 133/60; PULSE 85; RESP 18; TEMP 37.6; O2SAT 94
[2021-09-15 21:09] LABS: Partial Thromboplast Time 31.4 Seconds (24.1-36.2)
[2021-09-15] MEDS: Atorvastatin Calcium 10 MG Tablet 5 MG PO (21:21)
--- NOTE | 2021-09-15 21:29 | NURSING ---
Pt's APTT came back at 31.4 per IV heparin titration protocol pt was bolused with 1000 units and his IV heparin was adjusted to 18ml/hr up from 16 ml/hr. All IV heparin Titrations were verified by Nia Payan RN. Repeat APTT ordered for 6 hr's later.
[2021-09-16 02:35] VITALS: BP 134/71; PULSE 75; RESP 18; TEMP 37.3; O2SAT 95
[2021-09-16 03:53] LABS: Absolute Lymphocyte Count 1.32 X10^3/uL (0.83-4.51); Absolute Neutrophil Count 8.3 X10^3/uL (2.0-7.7); Basophil# 0.05 X10^3/uL; Basophil% 0.4 % (0-1); Eosinophil# 0.28 X10^3/uL; Eosinophils% 2.5 % (0-5); Hematocrit 33.2 % (40-54); Lymphocyte # 1.32 X10^3/ul (0.83-4.51); Lymphocyte % 11.7 % (19-41); Mean Corp Hgb Conc 33.1 g/dL (32-36); Mean Corpuscular Hgb 27.9 pg (27.0-32.0); Mean Corpuscular Volume 84.3 fL (80-94); Mean Platelet Vol. 9.3 fl (6.2-12.0); Monocyte# 1.15 X10^3/uL; Monocyte% 10.2 % (0-10); NRBC Flagged by Analyzer 0 % (0-5); Neutrophil # 8.34 X10^3/uL (2.7-7.7); Neutrophil % 73.7 % (47-70); Platelet Count 333 K/mm3 (150-450); RBC Distribution Width CV 12.3 % (11.6-14.6); RBC Distribution Width SD 37.7 fl (35.1-43.9); Red Blood Count 3.94 M/mm3 (4.6-6.2); White Blood Count 11.3 K/mm3 (4.4-11.0)
[2021-09-16 04:06] LABS: Anion Gap 7 (5-15); BUN 11 mg/dL (7-18); BUN/Creat Ratio 10.4 RATIO (10-20); Calcium,Total 8.5 mg/dL (8.5-10.1); Chloride 95 mmol/L (98-107); Creatinine, Serum 1.06 mg/dL (0.70-1.30); EST Glomerular Filtration Rate 79 mL/min (>60); Est Glom Filt Rate - Afr Amer 95 mL/min (>60); Estimated Creatinine Clearance 98.01 ml/min; Glucose 112 mg/dL (74-106); Potassium 3.4 mmol/L (3.5-5.1); Sodium Level 133 mmol/L (136-145)
[2021-09-16 04:07] LABS: Partial Thromboplast Time 32.8 Seconds (24.1-36.2)
[2021-09-16] MEDS: Heparin Injection (Vial) 5,000 UNIT/ML VIAL IV (04:15)
--- NOTE | 2021-09-16 04:20 | NURSING ---
Pt's APTT came back at 32.8 and per IV heparin titration protocol he was bolused with 1000 units of heparin and the IV rate was increased to 20 ml/hr up from 18ml/hr. All IV heparin titrations were verified with Nia Payan RN.
[2021-09-16] MEDS: Levothyroxine 100 MCG Tablet 200 MCG PO (05:48)
[2021-09-16] MEDS: oxyCODONE 5 MG Tablet 10 MG PO (07:33)
--- NOTE | 2021-09-16 08:35 | DS.PCM_ITS ---
Providers Date of Admission: 09/11/21 Primary Care Physician: Dr. Leidy Landa MD Consultations 09/14/21 13:14 Consult: Hospitalist Routine Consulting Provider: Pepe Schulz Reason for Consult: medical management, heparin drip EMERGENT Consult: No MD Notified: Yes Date Notified: 09/14/21 Time Notified: 13:14 Method of Notification: docs talked together Reason For Visit: LAP SIGMOID COLECTOMY Diagnosis Discharge Diagnosis (1) Diverticular stricture: Status: Acute Code(s): K56.699 - Other intestinal obstruction unspecified as to partial versus complete obstruction (2) Pulmonary emboli: Status: Acute Code(s): I26.99 - Other pulmonary embolism without acute cor pulmonale Medications at Discharge Home Medications Lisinopril/Hydrochlorothiazide [Zestoretic 20/25 Tablet] 1 tab PO DAILY 12/17/14 Omeprazole [Prilosec] 40 mg PO DAILY 12/17/14 lovastatin 10 mg PO DAILY 12/17/14 metoprolol succinate [Toprol XL] 50 mg PO DAILY 12/01/16 ibuprofen 800 mg tablet 800 mg PO TID PRN 08/07/21 levothyroxine 75 mcg tablet 200 mcg PO DAILY tab 08/07/21 multivitamin 1 tab PO DAILY 08/07/21 oxycodone 10 mg PO Q4H PRN PRN 3 Days #12 tab 09/13/21 apixaban [Eliquis] 5 mg PO BID #90 tab 09/15/21 Hospital Course Operations colectomy Summary of Care Provided Hospital Course: Patient was admitted after elective sigmoid colectomy for diverticular stricture. Postoperatively patient had a slow start of bowel function and then started having some fevers and tachycardia. A CTA of the chest was ordered as well as the abdomen pelvis. CT of the chest revealed hardy ral small PE in the lower lobes. Patient was started on heparin drip. After 2 days of heparin drip the patient was tolerating a diet and having bowel function with no bleeding. He was converted to Eliquis and discharged home. Physical Exam Const oriented x3 and no apparent distress Resp normal respiratory effort Cardio regular rate and regular rhythm GI soft to palpation and non-tender Inspection: Negative for abdominal distention Weight / BMI Weight Weight: 402 lb 9.025 oz Body Mass Index (BMI) 51.7 ABG / Lab / Microbiology Data Result Diagrams: 09/16/21 03:42 09/16/21 03:42 Laboratory: Laboratory Results - last 24 hr 09/15/21 12:50: APTT 29.9 09/15/21 20:29: APTT 31.4 09/16/21 03:42: WBC 11.3 H, RBC 3.94 L, Hgb 11.0 L, Hct 33.2 L, MCV 84.3, MCH 27.9, MCHC 33.1, RDW Std Deviation 37.7, RDW Coeff of Sheila 12.3, Plt Count 333, MPV 9.3, Immature Gran % (Auto) 1.500 H, Neut % (Auto) 73.7 H, Lymph % (Auto) 11.7 L, [place] % (Auto) 10.2 H, Eos % (Auto) 2.5, Baso % (Auto) 0.4, Absolute Neuts (auto) 8.3 H, Absolute Lymphs (auto) 1.32, Nucleated RBC % 0 09/16/21 03:42: Sodium 133 L, Potassium 3.4 L, Chloride 95 L, Carbon Dioxide 31.0, Anion Gap 7, BUN 11, Creatinine 1.06, Estim Creat Clear Calc 98.01, Est GFR (MDRD) Af Amer 95, Est GFR (MDRD) Non-Af 79, BUN/Creatinine Ratio 10.4, Glucose 112 H, Calcium 8.5 09/16/21 03:42: APTT 32.8 Microbiology: Microbiology 09/14/21 16:59 Urine, Random Urine Culture - Preliminary Mixed Gram Positive Organisms Radiography Diagnostic Testing: Radiology Impression Echocardiogram 09/14/21 13:14 Interpretation Summary The estimated ejection fraction is 55 %. No evidence for diastolic dysfunction. Ordering Physician: Pepe Schulz Referring Physician: Billy Ozuna Performed By: Vida Hinkle RDCS D/C Instructions Discharge Diet: No restrictions Discharge Activity: May Not Drive (No driving for 1 week or while taking narcotic pain meds.) and May Shower Lifting Restrictions: 10 pounds for 4 weeks Call your doctor if your incision/area has: Continuous Slow Oozing, Sudden Increased Bleeding, Increased Pain/ Swelling, Increased Redness, Foul Smelling Discharge and Swelling at the incision site Call your doctor if you observe: Fever of 101 or Higher Suture Line Care: Avoid Pulling/Pushing and Avoid Pinching/Bending Cleanse incision/area with: Soap & Water Additional Dressing/Incision Instructions: Leave steri-strips in place for 1 week Please Follow Up With: Billy Ozuna MD When: September 22 at 0900 AM. Please call [phone] if unable to make the appointment. Meaningful Use Info Meaningful Use Diagnoses (Choose all that apply): None applicable Discharge Plan Admission Admit Date/Time: 09/11/21 05:49 Primary Reason for Your Visit: S/p sigmoid colectomy for diverticular stricture Attending Provider: [place] Park Primary Care Provider: Leidy Landa Consulting Providers: Pepe Schulz ; Billy Ozuna Instructions Additional Instructions / Restrictions: You may alternate between Tylenol and Ibuprofen if narcotic pain medication is not needed. You may not drive while taking narcotic pain medication or for 5 days following discharge. I am recommending you continue on a low residue, low fiber diet for 2 weeks upon discharge. Recommend continuing to be up and walking at home to decrease risk of blood clots and pneumonia post-operatively. Please contact our office if any questions or concerns during your recovery process. Discharge Orders/Prescriptions Prescriptions: New oxycodone 5 mg Tablet 10 mg PO Q4H PRN PRN (Reason: Pain Score 6-10) 3 Days Qty: 12 RF: 0 Eliquis 5 mg tablet 5 mg PO BID Qty: 90 RF: 0 Continued multivitamin Tablet 1 tab PO DAILY RF: 0 lovastatin 10 MG tablet 10 mg PO DAILY RF: 0 Lisinopril/Hydrochlorothiazide [Zestoretic 20/25 Tablet] 1 TABLET tablet 1 tab PO DAILY RF: 0 Omeprazole [Prilosec] 40 MG capsule 40 mg PO DAILY RF: 0 levothyroxine 75 mcg tablet 200 mcg PO DAILY RF: 0 metoprolol succinate [Toprol XL] 50 MG tablet extended release 24 hr 50 mg PO DAILY RF: 0 ibuprofen 800 mg tablet 800 mg PO TID PRN (Reason: Pain) RF: 0 Discontinued metronidazole 500 mg tablet 500 mg PO .COMPLEX RF: 0 metronidazole 500 mg tablet 500 mg PO TID RF: 0 ciprofloxacin HCl 500 mg tablet 500 mg PO BID RF: 0 Referrals / Follow Up: Leidy Landa MD [Primary Care Provider] - Disposition Disposition (needs filled in before D/C Order can be placed): Home, Self Care
[2021-09-16 08:59] VITALS: BP 143/70; PULSE 92; RESP 16; TEMP 36.9; O2SAT 93
[2021-09-16 09:09] VITALS: PULSE 92
[2021-09-16] MEDS: Metoprolol(XL)Succ 50 MG Tablet PO (09:09)
[2021-09-16] MEDS: Pantoprazole Sodium 40 MG Tablet PO (09:10)
[2021-09-16] MEDS: Lisinopril 10 MG Tablet PO (09:13)
[2021-09-16] MEDS: APIXABAN 5 MG TABLET 10 MG PO (09:51)
== END 2021-09-16 10:40 | disposition home or self-care (01) | DRG 329 ==
LOC: ACINP 07:07 → MS3 16:18
PROVIDERS: Anesthesiology; Internal Medicine; Physician Assistant; Admitting Provider Surgery; PCP Family Medicine; Referring Provider Surgery; Visit Provider Family Medicine
PROC: 0DTN0ZZ Resection of Sigmoid Colon, Open Approach (ICD-10-PCS; CPT 44204; principal; 2021-09-11 07:05)
DX: K57.32 Diverticulitis of large intestine without perforation or abscess without bleeding (principal); I26.99 Other pulmonary embolism without acute cor pulmonale; Z68.43 Body mass index [BMI] 50.0-59.9, adult; K51.40 Inflammatory polyps of colon without complications; T81.718A Complication of other artery following a procedure, not elsewhere classified, initial encounter; E66.01 Morbid (severe) obesity due to excess calories; E07.9 Disorder of thyroid, unspecified; E78.00 Pure hypercholesterolemia, unspecified; K21.9 Gastro-esophageal reflux disease without esophagitis; M19.90 Unspecified osteoarthritis, unspecified site; I10 Essential (primary) hypertension; E78.5 Hyperlipidemia, unspecified; M47.816 Spondylosis without myelopathy or radiculopathy, lumbar region; D72.828 Other elevated white blood cell count; R05.3 Chronic cough; R50.82 Postprocedural fever; Z79.01 Long term (current) use of anticoagulants; Z79.899 Other long term (current) drug therapy
CPT/HCPCS: 36415; 71046; 71275; 74176; 74177; 80048; 81001; 83735; 83880; 84100; 84443; 84484; 85025; 85027; 85610; 85730; 87040; 87077; 87086; 87088; 87186; 88304; 88307; 93005; 93306; 99251; J7030; J7120; Q9967; A4216; C1760; G0463; J2405; J3490

== ENCOUNTER → 2021-10-19 | Outpatient (CLI) | payer OTHER, SELFPAY ==
--- NOTE | 2021-10-19 08:06 | RAD_ITS ---
STUDY: X-RAY - ESOPHAGUS (BARIUM SWALLOW) WITH FLUOROSCOPY REASON FOR EXAM: Male, 50 years old. ACID REFLUX TECHNIQUE: 14 view(s) of the esophagus were obtained following swallowing of barium. FLUOROSCOPY TIME (if supplied): (33 seconds) minutes/seconds COMPARISON: None. FINDINGS: There is no demonstrated esophageal foreign body. There is no demonstrated stricture or mucosal abnormality. Normal gastroesophageal junction, without a demonstrated hiatal hernia. The patient ingested a 12 mm tablet of barium without any difficulty. Normal visualized aortic arch and descending thoracic aorta. Normal visualized pulmonary parenchyma. Normal visualized osseous structures of the thorax. RAD/Esophagus Dual Contrast IMPRESSION: Normal plain film x-ray examination (barium swallow) of the esophagus. Electronically Signed: Stephen Costa MD at 10:50 EDT ,
[2021-10-19 18:50] LABS: T4 Free Direct 1.29 ng/dL (0.76-1.46); Thyroid Stim Hormone (TSH) 0.93 uIU/mL (0.358-3.74)
== END | disposition home or self-care (01) ==
PROVIDERS: PCP Family Medicine; Referring Provider Otolaryngology; Visit Provider Otolaryngology
DX: K21.9 Gastro-esophageal reflux disease without esophagitis (principal)
CPT/HCPCS: 74221; 84439; 84443

== ENCOUNTER → 2021-10-23 | Outpatient (CLI) | payer OTHER, SELFPAY | END | disposition home or self-care (01) | LOC: LABSPEC 15:36 | PROVIDERS: PCP Family Medicine; Visit Provider Otolaryngology | DX: B37.0 Candidal stomatitis (principal) | CPT/HCPCS: 87070 ==

== ENCOUNTER → 2022-06-16 | Outpatient (CLI) | payer OTHER, SELFPAY ==
[2022-06-16 09:59] LABS: Microalbumin,Random Urine 32.1 mg/L (NO RANGE EST.); Microalbumin:Creatinine Ratio 16.2 mg/g CRE (<30 mg/g CRE)
[2022-06-16 10:05] LABS: ALB/GLOB Ratio 0.9 RATIO (0.9-2.4); AST(SGOT) 19 U/L (15-37); Alanine Aminotransfer ALT/SGPT 32 U/L (16-61); Albumin, Serum 3.6 g/dL (3.2-5.0); Alkaline Phosphatase 87 U/L (45-117); Anion Gap 8 (5-15); BUN 15 mg/dL (7-18); BUN/Creat Ratio 14.6 RATIO (10-20); Chloride 105 mmol/L (98-107); Cholesterol 163 mg/dL (200); Creatinine, Serum 1.03 mg/dL (0.70-1.30); EST Glomerular Filtration Rate 81 mL/min (>60); Est Glom Filt Rate - Afr Amer 98 mL/min (>60); Glucose 138 mg/dL (74-106); High Density Lipoprotein 43 mg/dL; Potassium 4.1 mmol/L (3.5-5.1); Protein, Total 7.6 g/dL (6.4-8.2); Sodium Level 140 mmol/L (136-145); T4 Free Direct 1.18 ng/dL (0.76-1.46); Thyroid Stim Hormone (TSH) 1.85 uIU/mL (0.358-3.74); Triglycerides 127 mg/dL; Very Low Density Lipoprotein 25 mg/dL (5-40)
== END | disposition home or self-care (01) ==
LOC: LAB 08:47
PROVIDERS: PCP Family Medicine; Referring Provider Family Medicine; Visit Provider Family Medicine
DX: E03.9 Hypothyroidism, unspecified (principal); E11.9 Type 2 diabetes mellitus without complications; E78.5 Hyperlipidemia, unspecified
CPT/HCPCS: 36415; 80053; 80061; 82043; 82570; 84439; 84443

== ENCOUNTER 2022-06-19 18:09 | Emergency (ER) | payer OTHER, SELFPAY ==
[2022-06-19 18:09] VITALS: BP 193/107; PULSE 89; RESP 20; TEMP 36.1; O2SAT 97; BMI 53.8
--- NOTE | 2022-06-19 18:26 | ED.VIS.LOWEX ---
HPI History of Present Illness Chief Complaint: Wound Detail of Chief Complaint: Bleeding from varicose vein anterior left leg Informant: patient Occured/Mechanism Comment: Patient states he was using a washcloth in his leg and his leg began to bleed. He stated it is pretty impressive . Onset/Context/Timing Onset: Hours Context: Sudden Onset Timing: Continuous Location: Anterior distal left leg Current Severity: Severe Maximum Severity: Severe Worsened by: Blunt trauma Relieved by: Pressure Associated Symptoms Associated Symptoms: Negative for Parasthesia, Weakness or Loss of Funtion Narrative Narrative: Patient is a 51-year-old male with history of morbid obesity, pulmonary embolus on anticoagulant, hypertension, GERD, hyperlipidemia who presents with bleeding from varicose vein. He states this occurred many years ago and he had to have treatment by specialist. He has no other complaints. Tetanus Immunization: 5-10 years Prior similar symptoms: Yes Recent Illness/Hospitalization: No [facility] Medical History Arthritis Back pain Chronic cough Complex tear of medial meniscus of right knee as current injury Dehydration Diverticular stricture Diverticulitis Diverticulitis Gastric reflux High cholesterol Hypertension Hypokalemia Morbid obesity with BMI of 45.0-49.9, adult Morbid obesity with BMI of 50.0-59.9, adult Non-smoker Pulmonary emboli Sprain of unspecified site of right knee, initial encounter Thyroid disease Home Medications Lisinopril/Hydrochlorothiazide [Zestoretic 20/25 Tablet] 1 tab PO DAILY BP 12/17/14 [History Last Taken 09/10/21] Omeprazole [Prilosec] 40 mg PO DAILY GERD 12/17/14 [History Last Taken 09/11/21] lovastatin 10 mg tablet 10 mg PO DAILY CHOLESTEROL 12/17/14 [History Last Taken 09/10/21] metoprolol succinate 50 mg tablet,extended release 24 hr (Toprol XL) 50 mg PO DAILY BP 12/01/16 [History Last Taken 09/11/21] ibuprofen 800 mg tablet 800 mg PO TID PRN Pain 08/07/21 [History Last Taken Unknown] levothyroxine 75 mcg tablet 200 mcg PO DAILY THYROID 08/07/21 [History Last Taken 09/11/21] multivitamin 1 tab PO DAILY SUPLEMENT 08/07/21 [History Last Taken Unknown] oxycodone 5 mg tablet 10 mg PO Q4H PRN PRN Pain Score 6-10 3 days #12 tabs 09/13/21 [Rx Last Taken Unknown] apixaban 5 mg tablet (Eliquis) 5 mg PO BID #90 tabs 09/15/21 [Rx Last Taken Unknown] Allergy/AdvReac Type Severity Reaction Status Date / Time No Known Allergies Allergy Verified 06/19/22 18:09 Family History Father Diabetes Hypertension Surgical History H/O arthroscopy of right knee History of colectomy History of colonoscopy (~08/2021) History of eye surgery History of throat surgery Social History (Updated 06/19/22 @ 18:[address] Kareem Winchester MD) household members: none Smoking Status: Never smoker alcohol intake: never substance use type: does not use ROS ROS ED Musculoskeletal Musculoskeletal: Denies arthralgias, back pain, myalgias or neck pain Integumentary Denies abscess, Abrasions or rash Neurologic Neurologic: Denies paresthesias or weakness Psychiatric Psychiatric: Reports anxiety Hematologic/Lymphatic Hematologic/Lymphatic: Reports easy bleeding and easy bruising; Denies lymphadenopathy EXAM Physical Exam Const Vital Signs: 06/19/22 18:09 Temperature 97 F L Temperature Source Temporal Pulse Rate 89 Respiratory Rate 20 H Blood Pressure 193/107 H Blood Pressure Mean 135 Pulse Ox 97 Oxygen Delivery Method Room Air Positive well nourished, well developed and obese General Appearance ED: well developed; Negative for NAD Nutritional Appearance: obese HEENT Reports moist mucous membranes normocephalic Eyes Eyes Narrative: Pupils equal round reactive to light. Extraocular's are intact. Neck full ROM and supple Chest Wall inspection of chest normal Resp normal respiratory effort, no retractions and clear to auscultation bilaterally Cardio regular rate, regular rhythm, S1 normal heart sound, S2 normal heart sound and no murmurs Extremity Extremity Narrative: Patient has significant bleeding from an anterior distal left leg varicose vein. DP and PT pulse are palpable. Neuro oriented x3, CN's II-XII intact bilaterally and moves all extremities Psych Mood & Affect: anxious Skin Skin Narrative: Bleeding varicose vein. MDM MDM MDM Narrative Medical decision making narrative: Patient has bleeding from a superficial varicose vein. There is a stream of blood noted once compressive dressing was taken down. This will require ligation. Procedures Other Procedures Procedure(s): Area was cleansed. Using 4-0 Vicryl [id number] stitch was placed and bleeding stopped. Discharge Plan Triage Chief Complaint: Wound ED Provider: Kareem Winchester Dx/Rx/DC Orders Clinical Impression: Bleeding from varicose veins of left lower extremity, HTN (hypertension), Morbid obesity with BMI of 50.0-59.9, adult, Morbid obesity with BMI of 45.0-49.9, adult, HLD (hyperlipidemia), Anticoagulant long-term use Instructions: ED Varicose Veins Prescriptions: No Action multivitamin Tablet 1 tab PO DAILY lovastatin 10 MG tablet 10 mg PO DAILY Label Comments: CHOLESTEROL Lisinopril/Hydrochlorothiazide [Zestoretic 20/25 Tablet] 1 TABLET tablet 1 tab PO DAILY Label Comments: BLOOD PRESSURE Omeprazole [Prilosec] 40 MG capsule 40 mg PO DAILY Label Comments: GERD levothyroxine 75 mcg tablet 200 mcg PO DAILY Label Comments: THYROID metoprolol succinate [Toprol XL] 50 MG tablet extended release 24 hr 50 mg PO DAILY Label Comments: BLOOD PRESSURE ibuprofen 800 mg tablet 800 mg PO TID PRN (Reason: Pain) oxycodone 5 mg Tablet 10 mg PO Q4H PRN PRN (Reason: Pain Score 6-10) 3 Days Qty: 12 0RF Eliquis 5 mg tablet 5 mg PO BID Qty: 90 0RF Rx Instructions: Take 2 tablets twice daily for 7 days then go down to 1 tablet twice daily Primary Care Provider: Leidy Landa Referrals: Leidy Landa MD [Primary Care Provider] - As Needed Disposition Disposition: Home, Self Care
[2022-06-19 18:33] VITALS: BP 154/84; PULSE 73; RESP 15; O2SAT 94
== END 2022-06-19 19:19 | disposition home or self-care (01) ==
LOC: ED 18:47
PROVIDERS: Emergency Provider Emergency Medicine; PCP Family Medicine; Visit Provider Emergency Medicine
DX: I83.892 Varicose veins of left lower extremity with other complications (principal); E66.01 Morbid (severe) obesity due to excess calories; Z68.42 Body mass index [BMI] 45.0-49.9, adult; E78.00 Pure hypercholesterolemia, unspecified; I10 Essential (primary) hypertension; Z79.01 Long term (current) use of anticoagulants; Z79.899 Other long term (current) drug therapy; Z86.711 Personal history of pulmonary embolism
CPT/HCPCS: 35226; 99282

== ENCOUNTER → 2022-09-20 | Outpatient (CLI) | payer OTHER, SELFPAY ==
--- NOTE | 2022-09-20 19:12 | CT_ITS ---
STUDY: CT ABDOMEN AND PELVIS WITHOUT CONTRAST REASON FOR EXAM: Male, 51 years old. ADRENAL INCIDENTALOMA RADIATION DOSAGE (If Supplied By Facility): CTDIvol = ( 24.18 ) mGy, DLP = ( 1486.12 ) mGycm TECHNIQUE: Transaxial images were obtained from the dome of the diaphragm to the symphysis pubis without oral contrast, and without intravenous contrast. Sagittal and coronal images were reconstructed. Individualized dose optimization techniques were used for this CT. COMPARISON: Comparison is made with prior study dated September 15, 2021. FINDINGS: The visualized lung bases are unremarkable. The visualized portions of the heart are within normal limits. Normal liver. Normal gallbladder and extrahepatic biliary system. There are multiple benign calcified granulomata of the spleen. Normal pancreas. There is a small, circumscribed, smooth, low attenuation right adrenal mass, consistent with an adrenal adenoma. This is essentially stable as compared to prior studies. Normal left adrenal gland. Normal right kidney. Normal left kidney. There is a small hiatal hernia. Normal small intestine. There are scattered colonic diverticula consistent with diverticulosis. The appendix is visualized and appears normal. Normal abdominal aorta. Normal inferior vena cava. Normal retroperitoneum. Normal urinary bladder. Normal abdominal wall. Disc space narrowing and disc degeneration at the L5-S1 level. CT/Abdomen/Pelvis without Cont IMPRESSION: Stable adenoma in the right adrenal gland. Electronically Signed: Stephen Costa MD at 15:18 EDT ,
== END | disposition home or self-care (01) ==
LOC: CT 18:52
PROVIDERS: PCP Family Medicine; Referring Provider Family Medicine; Visit Provider Family Medicine
DX: E27.8 Other specified disorders of adrenal gland (principal)
CPT/HCPCS: 74176

== ENCOUNTER → 2023-02-09 | Outpatient (CLI) | payer OTHER, SELFPAY ==
[2023-02-09 10:14] LABS: Absolute Lymphocyte Count 1.28 X10^3/uL (0.83-4.51); Absolute Neutrophil Count 5.5 X10^3/uL (2.0-7.7); Basophil# 0.06 X10^3/uL; Basophil% 0.8 % (0-1); Eosinophil# 0.18 X10^3/uL; Eosinophils% 2.4 % (0-5); Hematocrit 47.5 % (40-54); Hemoglobin 14.7 g/dL (13.0-16.5); Lymphocyte # 1.28 X10^3/ul (0.83-4.51); Lymphocyte % 16.8 % (19-41); Mean Corp Hgb Conc 30.9 g/dL (32-36); Mean Corpuscular Hgb 26.9 pg (27.0-32.0); Mean Platelet Vol. 9.7 fl (6.2-12.0); Monocyte# 0.55 X10^3/uL; Monocyte% 7.2 % (0-10); NRBC Flagged by Analyzer 0 % (0-5); Neutrophil # 5.51 X10^3/uL (2.7-7.7); Platelet Count 267 K/mm3 (150-450); RBC Distribution Width CV 13.6 % (11.6-14.6); RBC Distribution Width SD 43.6 fl (35.1-43.9); Red Blood Count 5.46 M/mm3 (4.6-6.2); White Blood Count 7.6 K/mm3 (4.4-11.0)
[2023-02-09 11:03] LABS: ALB/GLOB Ratio 0.9 RATIO (0.9-2.4); AST(SGOT) 17 U/L (15-37); Alanine Aminotransfer ALT/SGPT 38 U/L (16-61); Albumin, Serum 3.3 g/dL (3.2-5.0); Alkaline Phosphatase 79 U/L (45-117); Anion Gap 5 (5-15); BUN 17 mg/dL (7-18); Calcium,Total 8.5 mg/dL (8.5-10.1); Chloride 105 mmol/L (98-107); Cholesterol 162 mg/dL (200); Creatinine, Serum 0.94 mg/dL (0.70-1.30); EST Glomerular Filtration Rate 90 mL/min (>60); Est Glom Filt Rate - Afr Amer 108 mL/min (>60); Globulin 3.7 g/dL (2.2-4.2); Glucose 160 mg/dL (74-106); High Density Lipoprotein 47 mg/dL; Potassium 4.4 mmol/L (3.5-5.1); Sodium Level 137 mmol/L (136-145); T4 Free Direct 1.06 ng/dL (0.76-1.46); Thyroid Stim Hormone (TSH) 1.46 uIU/mL (0.358-3.74); Triglycerides 115 mg/dL; Very Low Density Lipoprotein 23 mg/dL (5-40)
== END | disposition home or self-care (01) ==
PROVIDERS: PCP Family Medicine; Referring Provider Family Medicine; Visit Provider Family Medicine
DX: E03.9 Hypothyroidism, unspecified (principal); E11.9 Type 2 diabetes mellitus without complications; E78.5 Hyperlipidemia, unspecified
CPT/HCPCS: 36415; 80053; 80061; 83036; 84439; 84443; 85025

== ENCOUNTER → 2024-02-22 | Outpatient (CLI) | payer OTHER, SELFPAY ==
[2024-02-22 09:01] LABS: Absolute Lymphocyte Count 1.72 X10^3/uL (0.83-4.51); Absolute Neutrophil Count 6.6 X10^3/uL (2.0-7.7); Basophil# 0.08 X10^3/uL; Basophil% 0.9 % (0-1); Eosinophil# 0.19 X10^3/uL; Hematocrit 51.6 % (40-54); Hemoglobin 15.7 g/dL (13.0-16.5); Lymphocyte # 1.72 X10^3/ul (0.83-4.51); Lymphocyte % 18.4 % (19-41); Mean Corp Hgb Conc 30.4 g/dL (32-36); Mean Corpuscular Hgb 26.3 pg (27.0-32.0); Mean Corpuscular Volume 86.4 fL (80-94); Mean Platelet Vol. 9.7 fl (6.2-12.0); Monocyte% 7.5 % (0-10); NRBC Flagged by Analyzer 0 % (0-5); Neutrophil % 70.5 % (47-70); Platelet Count 306 K/mm3 (150-450); RBC Distribution Width CV 13.4 % (11.6-14.6); RBC Distribution Width SD 42.2 fl (35.1-43.9); Red Blood Count 5.97 M/mm3 (4.6-6.2); White Blood Count 9.4 K/mm3 (4.4-11.0)
[2024-02-22 10:08] LABS: ALB/GLOB Ratio 0.9 RATIO (0.9-2.4); AST(SGOT) 22 U/L (15-37); Alanine Aminotransfer ALT/SGPT 37 U/L (16-61); Albumin, Serum 3.7 g/dL (3.2-5.0); Alkaline Phosphatase 96 U/L (45-117); Anion Gap 7 (5-15); BUN 17 mg/dL (7-18); BUN/Creat Ratio 17.2 RATIO (10-20); Calcium,Total 9.7 mg/dL (8.5-10.1); Chloride 106 mmol/L (98-107); Cholesterol 164 mg/dL (200); Creatinine, Serum 0.99 mg/dL (0.70-1.30); EST Glomerular Filtration Rate 84 mL/min (>60); Est Glom Filt Rate - Afr Amer 102 mL/min (>60); Glucose 140 mg/dL (74-106); High Density Lipoprotein 42 mg/dL; Potassium 4.3 mmol/L (3.5-5.1); Protein, Total 7.7 g/dL (6.4-8.2); Sodium Level 140 mmol/L (136-145); T4 Free Direct 1.36 ng/dL (0.76-1.46); Thyroid Stim Hormone (TSH) 0.431 uIU/mL (0.358-3.740); Triglycerides 119 mg/dL; Very Low Density Lipoprotein 24 mg/dL (5-40)
[2024-02-22 11:21] LABS: Microalbumin,Random Urine 11.4 mg/L (NO RANGE EST.); Microalbumin:Creatinine Ratio 11.1 mg/g CRE (<30 mg/g CRE)
== END | disposition home or self-care (01) ==
LOC: LAB 08:21
PROVIDERS: PCP Family Medicine; Referring Provider Family Medicine; Visit Provider Family Medicine
DX: E03.9 Hypothyroidism, unspecified (principal); E11.9 Type 2 diabetes mellitus without complications; E78.5 Hyperlipidemia, unspecified
CPT/HCPCS: 36415; 80053; 80061; 82043; 82570; 84439; 84443; 85025

== ENCOUNTER → 2025-03-20 | Outpatient (CLI) | payer OTHER, SELFPAY ==
[2025-03-20 09:31] LABS: Hematocrit 50.0 % (40-54); Hemoglobin 16.5 g/dL (13.0-16.5); Immature Granulocytes Count 0.040 X10^3/uL (0.0-0.0); Mean Corp Hgb Conc 33.0 g/dL (32-36); Mean Corpuscular Volume 85.0 fL (80-94); Mean Platelet Vol. 9.6 fl (6.2-12.0); NRBC Flagged by Analyzer 0 % (0-5); Platelet Count 235 K/mm3 (150-450); RBC Distribution Width CV 13.5 % (11.6-14.6); RBC Distribution Width SD 41.9 fl (35.1-43.9); Red Blood Count 5.88 M/mm3 (4.6-6.2); White Blood Count 7.5 K/mm3 (4.4-11.0)
[2025-03-20 10:05] LABS: AST(SGOT) 27 U/L (<=37); Alanine Aminotransfer ALT/SGPT 31 U/L (<=46); Albumin, Serum 4.1 g/dL (3.5-5.0); Alkaline Phosphatase 63 U/L (40-129); Anion Gap 11 (5-15); BUN 17 mg/dL (4-19); BUN/Creat Ratio 16.1 RATIO (10-20); Calcium,Total 9.4 mg/dL (7.6-11.0); Carbon Dioxide 24.2 mmol/L (21.0-32.0); Chloride 102 mmol/L (98-108); Cholesterol 178 mg/dL (<=200); Globulin 3.3 g/dL (2.2-4.2); Glucose 143 mg/dL (70-99); Low Density Lipoprotein Calc. 115 mg/dL; Potassium 4.0 mmol/L (3.3-5.1); Triglycerides 137 mg/dL; Very Low Density Lipoprotein 27 mg/dL (5-40); cholesterol:hdl ratio screen 4.70
[2025-03-20 10:46] LABS: Creatinine, Urine (random) 102.00 mg/dL (39.00-259.00); Microalbumin,Random Urine 15.4 mg/L (<20 mg/L)
== END | disposition home or self-care (01) ==
LOC: LAB 08:39
PROVIDERS: PCP Family Medicine; Referring Provider Family Medicine; Visit Provider Family Medicine
DX: E03.9 Hypothyroidism, unspecified (principal); E11.9 Type 2 diabetes mellitus without complications; E78.5 Hyperlipidemia, unspecified
CPT/HCPCS: 36415; 80053; 80061; 82043; 82570; 84439; 84443; 85025